=== PATIENT | male | born 1965 | race Caucasian/White ===

== ENCOUNTER 2022-06-21 14:40 | Inpatient (IN) ==
--- NOTE | 2022-06-21 15:22 | Emergency Department Note ---
Impression & Plan SBO (small bowel obstruction), Crohns disease, H/O ileostomy, Hypomagnesemia, Weakness ED Provider Note NAME: KAREN MCADAMS AGE: 57 SEX: M : 1965 ARRIVES VIA: Walk-In INFORMANT: Patient, ED PROVIDER(S): Casper Tavera MD Chief Complaint: Dehydration, outpatient referral HPI: Patient presents with decreased appetite with associated loose schools. The patient has also had some associated vomiting. The patient does have a history of Crohn's was seen by GI today and referred here for further evaluation treatment and hydration as the patient has not been eating or drinking well. Patient states that the decreased appetite has been primarily over the last several months but has been worse maybe within the last week. Patient denies any chest pain shortness of breath. Patient denies any cough other than a smoker's cough but it is nonproductive. The patient does use tobacco but denies any alcohol or drug use. Patient has followed with [facility] for GI but recently was seen by Josue KONG today. Patient denies any current antibiotic use, untreated stream or well water and no known sick contacts or recent travel. The patient denies any blood coming from his ostomy and no blood in the vomit. ROS: See HPI for pertinent positives and negatives. A total of 10 systems were reviewed and otherwise negative. Past medical history: See below Surgical history: See below Social history: See below Physical Exam: GENERAL: NAD, wearing a mask, non-toxic. Glasses. EYE EXAM: Normal conjunctiva. PERRL, no anisocoria and EOM's grossly intact w/o pain. NECK: Supple, no nuchal rigidity, no adenopathy, non-tender. No signs of meningismus. FROM of the neck with good chin to chest and neck extension. No stridor. LUNGS: Scant wheezing. Normal chest wall mechanics. HEART: NSR, no MRG. ABDOMEN: Abdomen soft, right-sided abdominal pain with associated ostomy, normo- active bowel sounds, no masses, no rebound or guarding. BACK: No CVA TTP. SKIN: No rashes and no bruising. UPPER EXTREMITIES: Upper extremities are grossly normal. LOWER EXTREMITIES: Grossly normal, no edema. NEURO EXAM: A&O x3, cranial nerves II-XII grossly intact, normal speech, moves all 4 extremities. Differential diagnoses: Appendicitis, testicular torsion, infections, diverticulitis, UTI, obstruction, mesenteric ischemia, aortic pathology, inflammatory bowel disease, renal colic, PUD, pancreatitis, biliary pathology, hernia, volvulus, constipation, as well as other pathologies. Course: Patient was seen and evaluated the bedside. Full history physical exam was performed. Imaging Studies: See Below Cardiac monitoring: An order was placed for continuous cardiac monitoring. The monitor shows a rate of 92 with sinus rhythm. MDM: Patient was seen due to concern for dehydration nausea vomiting and abdominal pain. Blood work was obtained and the patient was given IV fluids antiemetics and IV Dilaudid. The patient does have an atrial intrathecal pump which she does receive intrathecal Dilaudid. Patient states that the pain medication does not work. Patient's blood work showed a white count of 11 with normal H&H and platelet count. The patient's kidney function was unremarkable. The patient does have hyponatremia. Patient also has associated hypomagnesemia. Urinalysis does show ketones. The patient was ordered magnesium for replacement and did receive IV fluids. COVID-negative. The patient's chest x-ray is negative. The patient's CT abdomen pelvis shows likely partial small bowel obstruction. Patient does not have any active vomiting do not believe he requires an NG at this time. I did speak the on-call hospitalist Dr. Camacho and the patient was admitted to the medicine service. Past Med/Surg History Medical History Atherosclerosis of abdominal aorta Noted incidentally on CT abdomen 04/2019 Chronic abdominal pain 2/2 crohns COPD (chronic obstructive pulmonary disease) No inhaler use. Chest x-ray from 05/19/2019 notes stable hyperexpansion of the lungs consistent with emphysema. Crohns disease DVT (deep venous thrombosis) Years ago in [facility] due to PICC line occlusion, was on Lovenox shots temporarily. 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 Renal cyst Noted on CT 04/2019 Smoker Surgical History (Updated 06/21/22 @ 21:53 by Casper Tavera MD) H/O ileostomy History of colon resection SEVERAL due to crohns History of surgery INTRATHECAL PUMP REFILL Social History Smoking Status: Current every day smoker Tobacco Type: Cigarettes Cigarettes Per Day: 1 pack/day; Second Hand Exposure: Yes; Do You Dip or Chew Tobacco: No; Hx Alcohol Use: No Hx Substance Use: Yes Last Used Substance: Days (ago) Last Used Substance Other :: yesterday Substance Use Type Other:: Medical Marijuana Preferred Language: Estonian Communication Ability: Effective Visual Impairment: No Limitations Hearing Ability: Normal 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 Required: No Beliefs That Will Affect Care: None marital status: Current Living Situation: Significant Other current occupational status: disabled Other Information That Helps Us Care for You: No Feels Safe at Home: Yes Safety Concerns: Feels Safe At This Time Assistive Devices: Cane, Denture - Upper, Denture - Lower and Glasses Allergies Allergies Allergy/AdvReac Type Severity Reaction Status Date / Time lara Allergy Intermediate RASH OR Verified 06/21/22 13:58 TONGUE SWELLS ketorolac Allergy Intermediate shakes, Verified 06/21/22 13:58 nervous latex Allergy Mild IRRITATED Verified 06/21/22 13:58 aspirin Allergy Unknown hx Crohns Verified 06/21/22 13:58 disease tromethamine Allergy Unknown unknown Verified 06/21/22 13:58 Home Meds Home Medications Medication Instructions Recorded Confirmed Medical marijuana 1 dose inhalation UD PRN pain 04/12/21 06/21/22 hydromorphone intrathecal 03/22/22 06/21/22 lorazepam 1 mg tablet (Ativan) 1 mg PO HS 06/21/22 06/21/22 omeprazole 20 mg capsule,delayed 20 mg PO HS 06/21/22 06/21/22 release Previous Rx's Medication Instructions Recorded methocarbamol 500 mg tablet 500 mg PO TID PRN spasms #90 tabs 01/17/22 naloxone 4 mg/actuation nasal 1 spray intranasal Q2M PRN opioid 01/17/22 spray (Narcan) overdose #2 ea Results & Data (ED) Vital Signs Vital Signs - 24 hr 06/21/22 14:53 06/21/22 15:43 06/21/22 16:00 Temperature 37.1 C Temperature Source Temporal Artery Scan Pulse Rate 97 H Pulse Rate from SpO2 Sensor Respiratory Rate 20 Respiratory Effort / Characteristics Non-Labored Spontaneous Respiratory Depth Normal Respiratory Pattern Regular Blood Pressure 88/60 L 109/64 Blood Pressure Mean 69 79 Blood Pressure Position Sitting Pulse Oximetry 97 96 Oxygen Delivery Method Room Air Room Air Sepsis Recent Fever Within 48 Hours No Sepsis New/Unexplained Change in Mental Status No Sepsis Action Taken by Nursing No Action Required 06/21/22 16:00 Temperature Temperature Source Pulse Rate 79 Pulse Rate from SpO2 Sensor 82 Respiratory Rate 10 L Respiratory Effort / Characteristics Respiratory Depth Respiratory Pattern Blood Pressure Blood Pressure Mean Blood Pressure Position Pulse Oximetry 98 Oxygen Delivery Method Sepsis Recent Fever Within 48 Hours Sepsis New/Unexplained Change in Mental Status Sepsis Action Taken by [facility] Medications Current Medication List: was personally reviewed by me Laboratory Data Attestation: I reviewed the patient's lab results. Result diagrams: 06/21/22 15:09 06/21/22 15:09 Lab Results 06/21/22 06/21/22 06/21/22 Range/Units 15:09 15:09 15:09 WBC 11.29 H (4.8-10.8) K/ul RBC 5.27 (4.63-6.08) M/uL Hgb 17.2 (14.0-18.0) g/dl Hct 47.5 (40.1-51.0) % MCV 90.1 (80.0-100.0) fL MCH 32.6 (25.0-34.0) pg MCHC 36.2 H (32.0-36.0) g/dL RDW Std Deviation 42.5 (36.4-46.3) fL RDW Coeff of South 12.9 (11.5-14.5) % Plt Count 326 (130-400) K/uL MPV 9.1 L (9.4-12.4) fL Immature Gran % (Auto) 0.4 % Neut % (Auto) 79.9 % Lymph % (Auto) 14.1 % [place] % (Auto) 5.3 % Eos % (Auto) 0.1 % Baso % (Auto) 0.2 % Neut # (Auto) 9.03 H (1.4-6.5) K/uL Lymph # (Auto) 1.59 (1.2-3.4) K/uL [place] # (Auto) 0.60 (0.24-0.82) K/uL Eos # (Auto) 0.01 (0-0.50) K/uL Baso # (Auto) 0.02 (0-0.2) K/uL Immature Gran # (Auto) 0.04 H (0.00-0.02) K/uL ESR (0-20) mm/hr PT 10.3 (9.0-12.0) Seconds INR 1.0 (0.9-1.1) APTT 25.9 (21.0-31.0) Seconds PTT Ratio 0.9 Sodium 132 L (136-145) mmol/L Potassium 3.6 (3.5-5.1) mmol/L Chloride 90 L (98-107) mmol/L Carbon Dioxide 32 (21-32) mmol/L Anion Gap 10 (3-11) BUN 16 (6-23) mg/dl Creatinine 1.08 (0.6-1.4) mg/dl Est Cr Clr Drug Dosing 59.2 ml/min Est GFR ( Amer) 88.5 ml/min Est GFR (Non-Af Amer) 76.3 ml/min BUN/Creatinine Ratio 14.8 (10-20) Glucose 102 H (70-99(Fasting)) mg/dl Osmolality (280-300) mOsm/kg Calcium 10.9 H (8.5-10.1) mg/dl Magnesium (1.7-2.4) mg/dl Total Bilirubin 1.7 H (0.2-1.0) mg/dl AST 29 (13-39) U/L ALT 31 (7-52) U/L Alkaline Phosphatase 78 (34-104) U/L C-Reactive Protein (0-0.5) mg/dl Total Protein 8.4 H (6.0-8.3) gm/dl Albumin 5.0 (3.4-5.0) gm/dl Globulin 3.4 (2.5-4.0) gm/dl Albumin/Globulin Ratio 1.5 (0.9-2) TSH (0.300-4.500) uIu/ml Urine Color Urine Appearance (Clear) Urine pH (4.5-7.5) Ur Specific [place] (1.000-1.030) Urine Protein (Negative) Urine Glucose (UA) (Negative) Urine Ketones (Negative) Urine Blood (Negative) Urine Nitrite (Negative) Urine Bilirubin (Negative) Urine Urobilinogen (Negative) Ur Leukocyte Esterase (Negative) Urine WBC (Auto) (0-5) /hpf Urine RBC (Auto) (0-4) /hpf U Hyaline Cast (Auto) (0-5) /lpf U Epithel Cells (Auto) (0-5) /lpf Urine Bacteria (Auto) (Negative) Urine Osmolality (500-800) mOsm/kg Ur Random Sodium mmol/L 06/21/22 06/21/22 06/21/22 Range/Units 15:09 15:09 15:09 WBC (4.8-10.8) K/ul RBC (4.63-6.08) M/uL Hgb (14.0-18.0) g/dl Hct (40.1-51.0) % MCV (80.0-100.0) fL MCH (25.0-34.0) pg MCHC (32.0-36.0) g/dL RDW Std Deviation (36.4-46.3) fL RDW Coeff of South (11.5-14.5) % Plt Count (130-400) K/uL MPV (9.4-12.4) fL Immature Gran % (Auto) % Neut % (Auto) % Lymph % (Auto) % [place] % (Auto) % Eos % (Auto) % Baso % (Auto) % Neut # (Auto) (1.4-6.5) K/uL Lymph # (Auto) (1.2-3.4) K/uL [place] # (Auto) (0.24-0.82) K/uL Eos # (Auto) (0-0.50) K/uL Baso # (Auto) (0-0.2) K/uL Immature Gran # (Auto) (0.00-0.02) K/uL ESR 55 H (0-20) mm/hr PT (9.0-12.0) Seconds INR (0.9-1.1) APTT (21.0-31.0) Seconds PTT Ratio Sodium (136-145) mmol/L Potassium (3.5-5.1) mmol/L Chloride (98-107) mmol/L Carbon Dioxide (21-32) mmol/L Anion Gap (3-11) BUN (6-23) mg/dl Creatinine (0.6-1.4) mg/dl Est Cr Clr Drug Dosing ml/min Est GFR ( Amer) ml/min Est GFR (Non-Af Amer) ml/min BUN/Creatinine Ratio (10-20) Glucose (70-99(Fasting)) mg/dl Osmolality (280-300) mOsm/kg Calcium (8.5-10.1) mg/dl Magnesium 1.5 L (1.7-2.4) mg/dl Total Bilirubin (0.2-1.0) mg/dl AST (13-39) U/L ALT (7-52) U/L Alkaline Phosphatase (34-104) U/L C-Reactive Protein (0-0.5) mg/dl Total Protein (6.0-8.3) gm/dl Albumin (3.4-5.0) gm/dl Globulin (2.5-4.0) gm/dl Albumin/Globulin Ratio (0.9-2) TSH 0.580 (0.300-4.500) uIu/ml Urine Color Urine Appearance (Clear) Urine pH (4.5-7.5) Ur Specific [place] (1.000-1.030) Urine Protein (Negative) Urine Glucose (UA) (Negative) Urine Ketones (Negative) Urine Blood (Negative) Urine Nitrite (Negative) Urine Bilirubin (Negative) Urine Urobilinogen (Negative) Ur Leukocyte Esterase (Negative) Urine WBC (Auto) (0-5) /hpf Urine RBC (Auto) (0-4) /hpf U Hyaline Cast (Auto) (0-5) /lpf U Epithel Cells (Auto) (0-5) /lpf Urine Bacteria (Auto) (Negative) Urine Osmolality (500-800) mOsm/kg Ur Random Sodium mmol/L 06/21/22 06/21/22 06/21/22 Range/Units 15:09 15:19 16:44 WBC (4.8-10.8) K/ul RBC (4.63-6.08) M/uL Hgb (14.0-18.0) g/dl Hct (40.1-51.0) % MCV (80.0-100.0) fL MCH (25.0-34.0) pg MCHC (32.0-36.0) g/dL RDW Std Deviation (36.4-46.3) fL RDW Coeff of [place] (11.5-14.5) % Plt Count (130-400) K/uL MPV (9.4-12.4) fL Immature Gran % (Auto) % Neut % (Auto) % Lymph % (Auto) % [place] % (Auto) % Eos % (Auto) % Baso % (Auto) % Neut # (Auto) (1.4-6.5) K/uL Lymph # (Auto) (1.2-3.4) K/uL [place] # (Auto) (0.24-0.82) K/uL Eos # (Auto) (0-0.50) K/uL Baso # (Auto) (0-0.2) K/uL Immature Gran # (Auto) (0.00-0.02) K/uL ESR (0-20) mm/hr PT (9.0-12.0) Seconds INR (0.9-1.1) APTT (21.0-31.0) Seconds PTT Ratio Sodium (136-145) mmol/L Potassium (3.5-5.1) mmol/L Chloride (98-107) mmol/L Carbon Dioxide (21-32) mmol/L Anion Gap (3-11) BUN (6-23) mg/dl Creatinine (0.6-1.4) mg/dl Est Cr Clr Drug Dosing ml/min Est GFR ( Amer) ml/min Est GFR (Non-Af Amer) ml/min BUN/Creatinine Ratio (10-20) Glucose (70-99(Fasting)) mg/dl Osmolality 279 L (280-300) mOsm/kg Calcium (8.5-10.1) mg/dl Magnesium (1.7-2.4) mg/dl Total Bilirubin (0.2-1.0) mg/dl AST (13-39) U/L ALT (7-52) U/L Alkaline Phosphatase (34-104) U/L C-Reactive Protein < 0.50 (0-0.5) mg/dl Total Protein (6.0-8.3) gm/dl Albumin (3.4-5.0) gm/dl Globulin (2.5-4.0) gm/dl Albumin/Globulin Ratio (0.9-2) TSH (0.300-4.500) uIu/ml Urine Color Dark Yellow Urine Appearance Clear (Clear) Urine pH 5.5 (4.5-7.5) Ur Specific [place] 1.020 (1.000-1.030) Urine Protein Trace H (Negative) Urine Glucose (UA) Negative (Negative) Urine Ketones 1+ H (Negative) Urine Blood Trace H (Negative) Urine Nitrite Negative (Negative) Urine Bilirubin 1+ H (Negative) Urine Urobilinogen Negative (Negative) Ur Leukocyte Esterase Negative (Negative) Urine WBC (Auto) 1-5 (0-5) /hpf Urine RBC (Auto) 5-10 H (0-4) /hpf U Hyaline Cast (Auto) 5-10 H (0-5) /lpf U Epithel Cells (Auto) 10-20 H (0-5) /lpf Urine Bacteria (Auto) Negative (Negative) Urine Osmolality (500-800) mOsm/kg Ur Random Sodium mmol/L 06/21/22 06/21/22 Range/Units 16:44 16:44 WBC (4.8-10.8) K/ul RBC (4.63-6.08) M/uL Hgb (14.0-18.0) g/dl Hct (40.1-51.0) % MCV (80.0-100.0) fL MCH (25.0-34.0) pg MCHC (32.0-36.0) g/dL RDW Std Deviation (36.4-46.3) fL RDW Coeff of [place] (11.5-14.5) % Plt Count (130-400) K/uL MPV (9.4-12.4) fL Immature Gran % (Auto) % Neut % (Auto) % Lymph % (Auto) % [place] % (Auto) % Eos % (Auto) % Baso % (Auto) % Neut # (Auto) (1.4-6.5) K/uL Lymph # (Auto) (1.2-3.4) K/uL [place] # (Auto) (0.24-0.82) K/uL Eos # (Auto) (0-0.50) K/uL Baso # (Auto) (0-0.2) K/uL Immature Gran # (Auto) (0.00-0.02) K/uL ESR (0-20) mm/hr PT (9.0-12.0) Seconds INR (0.9-1.1) APTT (21.0-31.0) Seconds PTT Ratio Sodium (136-145) mmol/L Potassium (3.5-5.1) mmol/L Chloride (98-107) mmol/L Carbon Dioxide (21-32) mmol/L Anion Gap (3-11) BUN (6-23) mg/dl Creatinine (0.6-1.4) mg/dl Est Cr Clr Drug Dosing ml/min Est GFR ( Amer) ml/min Est GFR (Non-Af Amer) ml/min BUN/Creatinine Ratio (10-20) Glucose (70-99(Fasting)) mg/dl Osmolality (280-300) mOsm/kg Calcium (8.5-10.1) mg/dl Magnesium (1.7-2.4) mg/dl Total Bilirubin (0.2-1.0) mg/dl AST (13-39) U/L ALT (7-52) U/L Alkaline Phosphatase (34-104) U/L C-Reactive Protein (0-0.5) mg/dl Total Protein (6.0-8.3) gm/dl Albumin (3.4-5.0) gm/dl Globulin (2.5-4.0) gm/dl Albumin/Globulin Ratio (0.9-2) TSH (0.300-4.500) uIu/ml Urine Color Urine Appearance (Clear) Urine pH (4.5-7.5) Ur Specific [place] (1.000-1.030) Urine Protein (Negative) Urine Glucose (UA) (Negative) Urine Ketones (Negative) Urine Blood (Negative) Urine Nitrite (Negative) Urine Bilirubin (Negative) Urine Urobilinogen (Negative) Ur Leukocyte Esterase (Negative) Urine WBC (Auto) (0-5) /hpf Urine RBC (Auto) (0-4) /hpf U Hyaline Cast (Auto) (0-5) /lpf U Epithel Cells (Auto) (0-5) /lpf Urine Bacteria (Auto) (Negative) Urine Osmolality 599 (500-800) mOsm/kg Ur Random Sodium < 10 mmol/L Administered Medications Hydromorphone HCl (Hydromorphone Inj 0.5 Mg/0.5 Ml Syr) 0.5 mg IV Q4H PRN PRN Reason: Moderate/Severe Pain Stop: 07/05/22 18:57 Last Admin: 06/21/22 20:13 Dose: 0.5 mg Documented By: CJC Lactated Ringer's (Lr) 1,000 mls @ 125 mls/hr IV .Q8H JI Stop: 06/22/22 02:47 Last Admin: 06/21/22 19:30 Dose: 125 mls/hr Documented By: AUGUSTINE Magnesium Sulfate/Dextrose (Magnesium Sulfate / D5w) 1 gm in 100 mls @ 50 mls/hr IV Q2H JI Stop: 06/21/22 22:47 Last Admin: 06/21/22 19:50 Dose: 50 mls/hr Documented By: AUGUSTINE Acetaminophen (Ofirmev) 1,000 mg in 100 mls @ 400 mls/hr IV Q8H PRN PRN Reason: Mild Pain or Fever Stop: 06/24/22 18:47 Last Infusion: 06/21/22 19:45 Dose: 0 mls/hr Documented By: Admin: 06/21/22 19:30 Dose: 400 mls/hr Documented By: AUGUSTINE Discontinued Medications Hydromorphone HCl (Hydromorphone Inj 0.5 Mg/0.5 Ml Syr) 0.5 mg IV NOW STA Stop: 06/21/22 15:37 Last Admin: 06/21/22 15:55 Dose: 0.5 mg Documented By: ARVIND Sodium Chloride (Nss 1000ml) 2,000 mls @ 999 mls/hr IV .Q2H1M JI Stop: 06/21/22 17:45 Last Infusion: 06/21/22 19:14 Dose: 0 mls/hr Documented By: Admin: 06/21/22 15:55 Dose: 999 mls/hr Documented By: ARVIND Magnesium Sulfate/Dextrose (Magnesium Sulfate / D5w) 1 gm in 100 mls @ 100 mls/hr IV NOW STA Stop: 06/21/22 18:39 Last Infusion: 06/21/22 19:01 Dose: 0 mls/hr Documented By: Admin: 06/21/22 18:01 Dose: 100 mls/hr Documented By: ARVIND Potassium Chloride (K Maycol / Wtr) 10 meq in 100 mls @ 100 mls/hr IV Q1H JI Stop: 06/21/22 20:47 Last Admin: 06/21/22 21:29 Dose: 100 mls/hr Documented By: AUGUSTINE Ioversol (Optiray 300 500ml) 87 ml IV ONCE ONE Stop: 06/21/22 16:50 Last Admin: 06/21/22 16:54 Dose: 87 ml Documented By: KIM Ondansetron HCl (Ondansetron Inj 2 Mg/Ml 2 Ml Vial) 4 mg IV NOW STA Stop: 06/21/22 15:37 Last Admin: 06/21/22 15:55 Dose: 4 mg Documented By: ARVIND Imaging Data Radiologist's Impression: Chest X-Ray 06/21/22 14:57 XR chest 1V portable CLINICAL HISTORY: illness TECHNIQUE: Single frontal radiograph of the chest was obtained. Comparison: Comparison is made to chest radiograph 11/05/2020 FINDINGS: No lines and tubes are seen. The cardiomediastinal silhouette is normal. The lungs are clear apart from chronic emphysematous changes. No evidence of pleural effusion or pneumothorax. IMPRESSION: No acute abnormalities and in particular no evidence of pneumonia. ACT 112: Negative or not required by law. Electronically signed by: Vivek Wilson M.D. 06/21/2022 3:57 PM Abdomen/Pelvis CT 06/21/22 15:36 CT SCAN OF THE ABDOMEN AND PELVIS WITH IV CONTRAST CLINICAL HISTORY: Right-sided abdominal pain. History of Crohn's disease. COMPARISON STUDY: No priors. TECHNIQUE: Following the IV administration of 87 cc of Optiray 300, CT scan of the abdomen and pelvis is performed from the lung bases to the proximal femora. Images are reviewed in the axial, sagittal, and coronal planes. IV contrast was administered without complication. A dose lowering technique was utilized adhering to the principles of ALARA. The examination is degraded by streak artifact from a pain pump device in the left abdominal wall. CT DOSE: 246.62 mGy.cm FINDINGS: Lung bases: The heart is normal in size and without pericardial effusion. Emphysematous changes noted at the lung bases. There is bibasilar scarring/atelectasis. No airspace consolidation or pleural effusion is identified.. Liver: The contrast-enhanced liver is normal in size, contour, and attenuation. There is no intrahepatic biliary ductal dilatation. The hepatic veins and portal veins are patent. Gallbladder: Surgically absent and clips in the gallbladder fossa. Spleen: Normal in size and attenuation. Pancreas: Unremarkable. Adrenal glands: Unremarkable. Kidneys: The contrast enhanced kidneys are normal in size and without hydronephrosis. The kidneys enhance symmetrically. A 2.2 cm cyst is noted in the right lower pole. Additional subcentimeter cortical hypodensities also likely represent cysts but are too small for definitive characterization Abdominal vasculature: The abdominal aorta is normal in course and caliber noting advanced atherosclerotic calcification. Bowel: There is postoperative change from proctocolectomy and right lower quadra nt ileostomy. The proximal small bowel loops are distended and fluid-filled, measuring up to 3.3 cm in diameter. The distal small bowel loops are decompressed leading to the ostomy. The appearance favors a small bowel obstruction. Exact transition point is not delineated, but is likely located in the pelvis. No focally thick-walled bowel loops are identified. There is no pneumatosis intestinalis or portal venous gas. Peritoneum: There is no intraperitoneal free air or abdominal ascites. Lymphadenopathy: None. Pelvic viscera: The bladder is decompressed and appears circumferentially thick walled. The prostate gland is mildly enlarged and heterogeneous. The seminal vesicles are normal as imaged. Skeletal structures: The skeletal structures are osteopenic. No lytic or blastic lesions are seen. Soft tissues: The patient is cachectic. A pain pump device is present within the left lower quadrant abdominal wall. The catheter enters the central canal in the upper lumbar region. IMPRESSION: 1. There is postoperative change from proctocolectomy and right lower quadrant ileostomy. 2. The proximal small bowel loops are distended and fluid-filled, while the distal small bowel loops are decompressed. The appearance favors at least partial small bowel obstruction. A discrete transition point is not identified, but likely located in the pelvis. 3. No intraperitoneal free air is seen. No focally thick-walled bowel loops identified. 4. Emphysema. 5. The bladder is decompressed and appears circumferentially thick walled. Correlate with clinical findings and urinalysis. 6. Additional findings as above. ACT 112: Negative or not required by law. Electronically signed by: Alexander Larkin M.D. 06/21/2022 5:11 PM Discharge Plan Visit Data Chief Complaint: Dehydration Stated Complaint: DEHHYDRATION, WEAKNESS ED Provider: Casper Tavera Discharge Problem: SBO (small bowel obstruction), Crohns disease, H/O ileostomy, Hypomagnesemia, Weakness Patient Disposition: Admitted As Inpatient Discharge Instructions Interventions: ED Discharge Assessment Last Done: 06/21/22 18:09
[2022-06-21 15:28] LABS: Basophils # (auto) 0.02 K/uL (0-0.2); Basophils % (auto) 0.2 %; Eosinophils # (auto) 0.01 K/uL (0-0.50); Eosinophils % (auto) 0.1 %; Hematocrit (blood only) 47.5 % (40.1-51.0); Hemoglobin 17.2 g/dl (14.0-18.0); Immature Granulocytes # (auto) 0.04 K/uL (0.00-0.02); Immature Granulocytes % (auto) 0.4 %; Lymphocytes # (auto) 1.59 K/uL (1.2-3.4); Lymphocytes % (auto) 14.1 %; Mean Corpuscular Hemoglobin 32.6 pg (25.0-34.0); Mean Corpuscular Hgb Conc 36.2 g/dL (32.0-36.0); Mean Corpuscular Volume 90.1 fL (80.0-100.0); Mean Platelet Volume 9.1 fL (9.4-12.4); Monocytes % (auto) 5.3 %; Neutrophils # (auto) 9.03 K/uL (1.4-6.5); Neutrophils % (auto) 79.9 %; Platelet Count 326 K/uL (130-400); RDW Coefficient of Variation 12.9 % (11.5-14.5); RDW Standard Deviation 42.5 fL (36.4-46.3); Red Blood Count 5.27 M/uL (4.63-6.08); White Blood Count 11.29 K/ul (4.8-10.8)
[2022-06-21] MEDS ORDERED: HYDROmorphone INJ 0.5 MG/0.5 ML SYR IV STA (15:36)
[2022-06-21] MEDS ORDERED: ONDANSETRON INJ 2 MG/ML 2 ML VIAL IV STA (15:36)
[2022-06-21 15:42] LABS: Partial Thromboplastin Ratio 0.9; Partial Thromboplastin Time 25.9 Seconds (21.0-31.0); Prothrombin Time 10.3 Seconds (9.0-12.0)
[2022-06-21] MEDS ORDERED: SODIUM CHLORIDE 0.9% 1000ML 2,000 ML IV SCH (15:45)
[2022-06-21 15:56] LABS: Albumin Globulin Ratio 1.5 (0.9-2); BUN Creatinine Ratio 14.8 (10-20); Bilirubin,Total 1.7 mg/dl (0.2-1.0); Calcium 10.9 mg/dl (8.5-10.1); Creatinine Clr Calc Pharmacy 59.2 ml/min; Est GFR (African American) 88.5 ml/min; Est GFR (Non-African American) 76.3 ml/min; Globulin 3.4 gm/dl (2.5-4.0); Potassium 3.6 mmol/L (3.5-5.1); Total Protein 8.4 gm/dl (6.0-8.3)
--- NOTE | 2022-06-21 15:58 | XRay Report ---
XR chest 1V portable CLINICAL HISTORY: illness TECHNIQUE: Single frontal radiograph of the chest was obtained. Comparison: Comparison is made to chest radiograph 11/05/2020 FINDINGS: No lines and tubes are seen. The cardiomediastinal silhouette is normal. The lungs are clear apart fr om chronic emphysematous changes. No evidence of pleural effusion or pneumothorax. IMPRESSION: No acute abnormalities and in particular no evidence of pneumonia. ACT 112: Negative or not required by law. Electronically signed by: Vivek Wilson M.D. 06/21/2022 3:57 PM
[2022-06-21] MEDS ORDERED: OPTIRAY 300 500mL IV ONE (16:49)
[2022-06-21 17:05] LABS: Appearance Urine Clear (Clear); Bacteria Urine Automated Negative (Negative); Blood Urine Trace (Negative); Color Urine Dark Yellow; Glucose Urine UA Negative (Negative); Ketones Urine 1+ (Negative); Leukocyte Esterase Urine Negative (Negative); Nitrite Urine Negative (Negative); Protein Urine Trace (Negative); Urobilinogen Urine Negative (Negative); pH Urine 5.5 (4.5-7.5)
[2022-06-21 17:08] LABS: Bilirubin Urine 1+ (Negative)
--- NOTE | 2022-06-21 17:12 | CT Scan Report ---
CT SCAN OF THE ABDOMEN AND PELVIS WITH IV CONTRAST CLINICAL HISTORY: Right-sided abdominal pain. History of Crohn's disease. COMPARISON STUDY: No priors. TECHNIQUE: Following the IV administration of 87 cc of Optiray 300, CT scan of the abdomen and pelvi s is performed from the lung bases to the proximal femora. Images are reviewed in the axial, sagittal , and coronal planes. IV contrast was administered without complication. A dose lowering technique wa s utilized adhering to the principles of ALARA. The examination is degraded by streak artifact from a pain pump device in the left abdominal wall. CT DOSE: 246.62 mGy.cm FINDINGS: Lung bases: The heart is normal in size and without pericardial effusion. Emphysematous changes noted at the lung bases. There is bibasilar scarring/atelectasis. No airspace consolidation or pleural eff usion is identified.. Liver: The contrast-enhanced liver is normal in size, contour, and attenuation. There is no intrahepa tic biliary ductal dilatation. The hepatic veins and portal veins are patent. Gallbladder: Surgically absent and clips in the gallbladder fossa. Spleen: Normal in size and attenuation. Pancreas: Unremarkable. Adrenal glands: Unremarkable. Kidneys: The contrast enhanced kidneys are normal in size and without hydronephrosis. The kidneys enh ance symmetrically. A 2.2 cm cyst is noted in the right lower pole. Additional subcentimeter cortical hypodensities also likely represent cysts but are too small for definitive characterization Abdominal vasculature: The abdominal aorta is normal in course and caliber noting advanced atheroscle rotic calcification. Bowel: There is postoperative change from proctocolectomy and right lower quadrant ileostomy. The pro ximal small bowel loops are distended and fluid-filled, measuring up to 3.3 cm in diameter. The dista l small bowel loops are decompressed leading to the ostomy. The appearance favors a small bowel obstr uction. Exact transition point is not delineated, but is likely located in the pelvis. No focally thi ck-walled bowel loops are identified. There is no pneumatosis intestinalis or portal venous gas. Peritoneum: There is no intraperitoneal free air or abdominal ascites. Lymphadenopathy: None. Pelvic viscera: The bladder is decompressed and appears circumferentially thick walled. The prostate gland is mildly enlarged and heterogeneous. The seminal vesicles are normal as imaged. Skeletal structures: The skeletal structures are osteopenic. No lytic or blastic lesions are seen. Soft tissues: The patient is cachectic. A pain pump device is present within the left lower quadrant abdominal wall. The catheter enters the central canal in the upper lumbar region. IMPRESSION: 1. There is postoperative change from proctocolectomy and right lower quadrant ileostomy. 2. The proximal small bowel loops are distended and fluid-filled, while the distal small bowel loops are decompressed. The appearance favors at least partial small bowel obstruction. A discrete transiti on point is not identified, but likely located in the pelvis. 3. No intraperitoneal free air is seen. No focally thick-walled bowel loops identified. 4. Emphysema. 5. The bladder is decompressed and appears circumferentially thick walled. Correlate with clinical fi ndings and urinalysis. 6. Additional findings as above. ACT 112: Negative or not required by law. Electronically signed by: Alexander Larkin M.D. 06/21/2022 5:11 PM
[2022-06-21] MEDS ORDERED: MAGNESIUM SULFATE / D5W 1 GM/100 ML BAG IV STA (17:40)
--- NOTE | 2022-06-21 17:44 | History & Physical Report ---
Date of Service June 21, 2022 Assessment & Plan (1) Weakness: Plan: - Ongoing abdominal pain with acute worsening this week with minimal p.o. intake, increased ostomy output. No recent antibiotic use, fevers, or well/stream water ingestion. - CT A/P was read as partial SBO, however patient's reported increased ostomy output does not fit the picture of a bowel obstruction. -Differential diagnosis currently includes gastroenteritis versus flareup of Crohn's disease - Stool bio fire panel, ESR, CRP pending. - N.p.o. with LR's at 125 cc/hour - Will consult GI for further management, as well as consideration for feeding tube placement. - Replete electrolytes as needed, currently has orders for 2 g of IV magnesium in addition to the 1 g received in ED, follows 2 K riders for lownormal potassium. - For acute worsening of chronic abdominal pain--patient has intrathecal pump that gives Dilaudid and bupivacaine. Will order additional IV Tylenol for mild pain, as well as additional 0.5 mg Dilaudid every 6 4-hour as needed for moderate to severe pain. Would anticipate given his chronic use of Dilaudid that he has a fairly high tolerance. (2) SBO (small bowel obstruction): Plan: - Ongoing abdominal pain with acute worsening this week with minimal p.o. intake, increased ostomy output. - CT A/P shows proximal small bowel loops distended and fluid-filled with distal small bowel loops decompressed favoring at least partial SBO with no discrete transition point identified. - Patient's increased ostomy output does not correlate with SBO. - Regardless, management will be similar, n.p.o. with IVF, replace electrolytes, pain management as above. - Will hold off on general surgery consult for now, however if patient's presentation worsens or if repeat imaging reveals progression of an SBO, would consult them for further assistance. (3) Hypomagnesemia: Plan: - 1.5, suspect is in the setting of poor p.o. intake and increased ostomy output - Received 1 g IV mag in ED, will continue with 2 additional grams IV tonight, as well as potassium repletion. (4) Hyponatremia: Plan: - Sodium is 132, suspect this is in the setting of poor p.o. intake and increased ostomy output. - We will obtain serum and urine osm + urine Na. (5) Crohns disease: Plan: - Notes in 1998, s/p RLQ ileostomy for 7-8 years. - Ostomy intact without evidence of infection at site. Putting out large amou nts of brown liquid stool. - GI consult as above. (6) Chronic abdominal pain: Plan: - 2/2 Crohn's disease. - Patient follows with pain management regularly, has intrathecal pump in place with PTM settings 1/hour max amount of use 6 times/day, with simple continuous dose of Dilaudid 3.249 mg/day and bupivacaine 1.8414 mg/day. - Next pump refill scheduled for 07/26/2022. - Patient was previously seen by A[facility] in [facility], however recently switched care to [facility]. First appointment was set to be today, however was referred to our ED before seeing provider. - Due to ongoing issues with nutrition and maintaining healthy weight, he had previously spoken to providers about feeding tube and was said to discuss this at today's appointment. We will consult GI while he is hospitalized, as well as nutrition/dietitian for further assistance with this. (7) Superior mesenteric artery syndrome: (8) Presence of intrathecal pump: (9) Smoker: Plan: - Smokes 1 pack/day. -Offer nicotine patch while hospitalized. Plan - Admit to PCU. - SCDs for VTE PPx. - Full code. History of Present Illness Chief Complaint: weakness, decreased appetite, nasuea x 1 week Primary Care Provider: Vicente Valenzuela Tigre Cline is a 57-year-old male with past medical history significant for intractable abdominal pain secondary to Crohn's disease with intrathecal pump present, s/p ileostomy, SMA syndrome, and COPD with current tobacco use who presents today with loose stools and decreased appetite. He was at a GI appointment today and in triage reported extreme weakness, nausea, and very minimal intake over the past week and therefore was referred here for further evaluation. Admittedly, patient has had poor p.o. intake for months and in fact was seeing GI today via referral from pain management to consider a feeding tube. Over the past week, it has been much worse, stating most days he only gets a few bites of food down before feeling immediately fall and becoming nauseous. There are days when he does not eat anything at all. He has not vomited, but notices any food he does not just seems to go right through him and his ostomy has been putting out large amounts of nonbloody liquid brown stool. He feels that he has no energy and his abdominal pain is worse than it typically is. He did not notice any fever or chills, body aches, chest pain, palpitations, dyspnea, vomiting, hematochezia, melena, or constipation. Upon presentation, BP was initially low at 88/60, and HR 97, however CPAP. BP now improved to 109/64, HR 79. He is afebrile and SPO2 >95% on room air. Labs significant for leukocytosis WBC 11.29, sodium 132, serum bicarb 90, calcium 10.9, magnesium 1.5, T bili 1.7. Renal function is about baseline. UA with hyaline casts, ketones, and protein trace blood and bilirubin. CT A/P shows proximal small polyps that are distended and fluid-filled all distal small loops are decompressed which favors at least partial SBO. There is not a discrete transition point. There is no intraperitoneal free air or focally thick-walled bowel loops. Also noted are postoperative changes from proctocolectomy ileostomy decompressed bladder with wall thickening. Allergies Allergy/AdvReac Type Severity Reaction Status Date / Time lara Allergy Intermediate RASH OR Verified 06/21/22 13:58 TONGUE SWELLS ketorolac Allergy Intermediate shakes, Verified 06/21/22 13:58 nervous latex Allergy Mild IRRITATED Verified 06/21/22 13:58 aspirin Allergy Unknown hx Crohns Verified 06/21/22 13:58 disease tromethamine Allergy Unknown unknown Verified 06/21/22 13:58 Home Medications Medication Instructions Recorded Confirmed Type Medical marijuana 1 dose inhalation UD PRN pain 04/12/21 06/21/22 History methocarbamol 500 mg tablet 500 mg PO TID PRN spasms #90 tabs 01/17/22 06/21/22 Rx naloxone 4 mg/actuation nasal 1 spray intranasal Q2M PRN opioid 01/17/22 Rx spray (Narcan) overdose #2 ea hydromorphone intrathecal 03/22/22 06/21/22 History lorazepam 1 mg tablet (Ativan) 1 mg PO HS 06/21/22 06/21/22 History omeprazole 20 mg capsule,delayed 20 mg PO HS 06/21/22 06/21/22 History release Past Med/Surg History Medical History Atherosclerosis of abdominal aorta Noted incidentally on CT abdomen 04/2019 Chronic abdominal pain 2/2 crohns COPD (chronic obstructive pulmonary disease) No inhaler use. Chest x-ray from 05/19/2019 notes stable hyperexpansion of the lungs consistent with emphysema. Crohns disease DVT (deep venous thrombosis) Years ago in E due to PICC line occlusion, was on Lovenox shots temporarily. 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 Renal cyst Noted on CT 04/2019 Smoker Surgical History H/O ileostomy History of colon resection SEVERAL due to crohns History of surgery INTRATHECAL PUMP REFILL Family History Other No pertinent family history Social History Smoking Status: Current every day smoker Tobacco Type: Cigarettes Cigarettes Per Day: 1 pack/day; Second Hand Exposure: Yes; Do You Dip or Chew Tobacco: No; Hx Alcohol Use: No Hx Substance Use: Yes Last Used Substance: Days (ago) Last Used Substance Other:: yesterday Substance Use Type Other:: Medical Marijuana Preferred Language: Upper Sorbian Communication Ability: Effective Visual Impairment: No Limitations Hearing Ability: Normal 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 Beliefs That Will Affect Care: None marital status: Current Living Situation: Significant Other current occupational status: disabled Other Information That Helps Us Care for You: No Feels Safe at Home: Yes Safety Concerns: Feels Safe At This Time Assistive Devices: Cane, Denture - Upper, Denture - Lower and Glasses Review of Systems Review of Systems: Constitutional: Weakness, fatigue, anorexia; no fever/chills, myalgias, night sweats Eyes: No diplopia, no worsening or blurred vision ENT: normal hearing, no trouble swallowing Respiratory: No cough, sputum, dyspnea at rest or on exertion Cardiovascular: No chest pain, tightness or palpitations Abdomen: Diffuse abdominal pain with nausea and loose nonbloody stools; no vomiting constipation : Denies dysuria, hematuria, increased urgency/frequency, urinary retention Musculoskeletal: No joint pain, calf pain, swelling Neurologic: No weakness, numbness/tingling, or balance problems Psychiatric: No anxiety or depression Skin: No rash or itch Physical Exam Physical Exam: General: awake, alert, appears to be moderately uncomfortable however no acute distress Head: Normocephalic, atraumatic ENT: PERRL, EOMI, no pharyngeal exudate, mucous membranes moist Chest: Clear to auscultation, on room air, no adventitious breath sounds Cardiac: Regular rate and rhythm, no murmur, no JVD, normal peripheral pulses, good capillary refill Abdominal: TTP in epigastrium/right abdomen no rebound or guarding; NABS x 4 quadrants, soft, ostomy intact without evidence of surrounding erythema or edema Extremities: Normal inspection, no peripheral edema or erythema, calfs nontender to palpation Psych: Normal mood and affect Neuro: AAO x 3, strength intact bilaterally and rated 5/5, no motor deficits, speech is clear, no peripheral sensory deficits Skin: no rash or erythema Results & Data Results & Data ([facility]) Vital Signs (Past 12 Hours) Vital Signs Temp Pulse Resp BP Pulse Ox O2 Del Method 06/21/22 16:00 79 10 L 98 06/21/22 16:00 109/64 06/21/22 15:43 96 Room Air 06/21/22 14:53 37.1 C 97 H 20 88/60 L 97 Room Air Laboratory Results Abnormal lab results 06/21/22 06/21/22 06/21/22 Range/Units 15:09 15:09 15:09 WBC 11.29 H (4.8-10.8) K/ul MCHC 36.2 H (32.0-36.0) g/dL MPV 9.1 L (9.4-12.4) fL Neut # (Auto) 9.03 H (1.4-6.5) K/uL Immature Gran # (Auto) 0.04 H (0.00-0.02) K/uL Sodium 132 L (136-145) mmol/L Chloride 90 L (98-107) mmol/L Glucose 102 H (70-99(Fasting)) mg/dl Calcium 10.9 H (8.5-10.1) mg/dl Magnesium 1.5 L (1.7-2.4) mg/dl Total Bilirubin 1.7 H (0.2-1.0) mg/dl Total Protein 8.4 H (6.0-8.3) gm/dl Urine Protein (Negative) Urine Ketones (Negative) Urine Blood (Negative) Urine Bilirubin (Negative) Urine RBC (Auto) (0-4) /hpf U Hyaline Cast (Auto) (0-5) /lpf U Epithel Cells (Auto) (0-5) /lpf 06/21/22 Range/Units 16:44 WBC (4.8-10.8) K/ul MCHC (32.0-36.0) g/dL MPV (9.4-12.4) fL Neut # (Auto) (1.4-6.5) K/uL Immature Gran # (Auto) (0.00-0.02) K/uL Sodium (136-145) mmol/L Chloride (98-107) mmol/L Glucose (70-99(Fasting)) mg/dl Calcium (8.5-10.1) mg/dl Magnesium (1.7-2.4) mg/dl Total Bilirubin (0.2-1.0) mg/dl Total Protein (6.0-8.3) gm/dl Urine Protein Trace H (Negative) Urine Ketones 1+ H (Negative) Urine Blood Trace H (Negative) Urine Bilirubin 1+ H (Negative) Urine RBC (Auto) 5-10 H (0-4) /hpf U Hyaline Cast (Auto) 5-10 H (0-5) /lpf U Epithel Cells (Auto) 10-20 H (0-5) /lpf Diagnostic Findings Chest X-Ray 06/21/22 14:57 XR chest 1V portable CLINICAL HISTORY: illness TECHNIQUE: Single frontal radiograph of the chest was obtained. Comparison: Comparison is made to chest radiograph 11/05/2020 FINDINGS: No lines and tubes are seen. The cardiomediastinal silhouette is normal. The lungs are clear apart from chronic emphysematous changes. No evidence of pleural effusion or pneumothorax. IMPRESSION: No acute abnormalities and in particular no evidence of pneumonia. ACT 112: Negative or not required by law. Electronically signed by: Vivek Wilson M.D. 06/21/2022 3:57 PM Abdomen/Pelvis CT 06/21/22 15:36 CT SCAN OF THE ABDOMEN AND PELVIS WITH IV CONTRAST CLINICAL HISTORY: Right-sided abdominal pain. History of Crohn's disease. COMPARISON STUDY: No priors. TECHNIQUE: Following the IV administration of 87 cc of Optiray 300, CT scan of the abdomen and pelvis is performed from the lung bases to the proximal femora. Images are reviewed in the axial, sagittal, and coronal planes. IV contrast was administered without complication. A dose lowering technique was utilized adhering to the principles of ALARA. The examination is degraded by streak artifact from a pain pump device in the left abdominal wall. CT DOSE: 246.62 mGy.cm FINDINGS: Lung bases: The heart is normal in size and without pericardial effusion. Emphysematous changes noted at the lung bases. There is bibasilar scarring/atelectasis. No airspace consolidation or pleural effusion is identified.. Liver: The contrast-enhanced liver is normal in size, contour, and attenuation. There is no intrahepatic biliary ductal dilatation. The hepatic veins and portal veins are patent. Gallbladder: Surgically absent and clips in the gallbladder fossa. Spleen: Normal in size and attenuation. Pancreas: Unremarkable. Adrenal glands: Unremarkable. Kidneys: The contrast enhanced kidneys are normal in size and without hydronephrosis. The kidneys enhance symmetrically. A 2.2 cm cyst is noted in the right lower pole. Additional subcentimeter cortical hypodensities also likely represent cysts but are too small for definitive characterization Abdominal vasculature: The abdominal aorta is normal in course and caliber noting advanced atherosclerotic calcification. Bowel: There is postoperative change from proctocolectomy and right lower quadrant ileostomy. The proximal small bowel loops are distended and fluid- filled, measuring up to 3.3 cm in diameter. The distal small bowel loops are decompressed leading to the ostomy. The appearance favors a small bowel obstruction. Exact transition point is not delineated, but is likely located in the pelvis. No focally thick-walled bowel loops are identified. There is no pneumatosis intestinalis or portal venous gas. Peritoneum: There is no intraperitoneal free air or abdominal ascites. Lymphadenopathy: None. Pelvic viscera: The bladder is decompressed and appears circumferentially thick walled. The prostate gland is mildly enlarged and heterogeneous. The seminal vesicles are normal as imaged. Skeletal structures: The skeletal structures are osteopenic. No lytic or blastic lesions are seen. Soft tissues: The patient is cachectic. A pain pump device is present within the left lower quadrant abdominal wall. The catheter enters the central canal in the upper lumbar region. IMPRESSION: 1. There is postoperative change from proctocolectomy and right lower quadrant ileostomy. 2. The proximal small bowel loops are distended and fluid-filled, while the distal small bowel loops are decompressed. The appearance favors at least partial small bowel obstruction. A discrete transition point is not identified, but likely located in the pelvis. 3. No intraperitoneal free air is seen. No focally thick-walled bowel loops identified. 4. Emphysema. 5. The bladder is decompressed and appears circumferentially thick walled. Correlate with clinical findings and urinalysis. 6. Additional findings as above. ACT 112: Negative or not required by law. Electronically signed by: Alexander Larkin M.D. 06/21/2022 5:11 PM Code Status & VTE Plan Code Status Poor data quality, interpretation may be adversely affected Sinus rhythm with marked sinus arrhythmia Right axis deviation Abnormal ECG When compared with ECG of 05-NOV-2020 21:26, Premature atrial complexes are no longer Present Incomplete right bundle branch block is no longer Present. Supervising Physician Co-Signing Physician Notes Attending Attestation & Admit Note: Pt seen/examined, chart reviewed, care plan d/w CHERYL Valenzuela. I agree w/ the obrien components of her documentation. 57yo male with Crohn's disease, ileostomy status, h/o SMA syndrome, chronic pain syndrome with intrathecal pain pump. Presents with copious ileostomy output - empties bag sometimes up to 20x's each day. On a "good day" he empties the bag ~10x's/day. No fevers. Very poor PO intake. PMH/PSH/allergies/meds/sochx/famhx - reviewed BPs low or low-normal, otherwise stable vitals gen - thin, malnourished appearing, NAD mouth - thrush plaques on tongue, buccal mucosa; MM dry neck - no JVD heart - RRR, s1 s2 lungs - CTA b/l abd - mildly tender epigastric region; ileostomy with bag in place - bag full of liquid stool; BS+; no peritoneal signs ext - no edema, pulses 2+ b/l labs reviewed CT abd/pelvis reviewed A/P: 1. high-output ileostomy; clinical picture NOT c/w pSBO despite CT findings 2. r/o infectious process with stool BioFire 3. replace low K/mag/Na 4. hypercalcemia - likely 2nd to dehydration state; should correct w/ IVF 5. severe protein calorie malnutrition ?active Crohn's causing #1? check ESR/CRP GI consultation Hiren Camacho MD PG Care Time/CCT Total # of Minutes Spent Total Time Spent with Patient: Total time spent is greater than 50% in coordination of care (as documented) at patient's floor/unit and/or counseling patient: Coding Level of Care Code 87290 Initial Inpt Care Lvl 3 Diagnoses Weakness R53.1 SBO (small bowel obstruction) K56.609 Hypomagnesemia E83.42 Hyponatremia E87.1 Crohns disease K50.90 Chronic abdominal pain R10.9; G89.29 Superior mesenteric artery syndrome K55.1 Presence of intrathecal pump Z96.89 Smoker F17.200
[2022-06-21] MEDS ORDERED: LACTATED RINGER'S 1,000 ML IV SCH (18:48)
[2022-06-21] MEDS ORDERED: NALOXONE NASAL SPRAY 4 MG ER HOMEPACK PRN (18:48)
[2022-06-21] MEDS ORDERED: HYDROMORPHONE intrathecal SCH (18:48)
[2022-06-21] MEDS ORDERED: ONDANSETRON INJ 2 MG/ML 2 ML VIAL IV PRN (18:48)
[2022-06-21] MEDS ORDERED: HYDROmorphone INJ 0.5 MG/0.5 ML SYR IV PRN (18:58)
[2022-06-21] MEDS ORDERED: BUPIVACAINE IT SCH (19:15)
[2022-06-21] MEDS ORDERED: [UNRECOGNIZED DRUG - OTHER] IT SCH (19:15)
[2022-06-21] MEDS ORDERED: HYDROMORPHONE IT SCH (19:15)
[2022-06-21] MEDS ORDERED: NALOXONE HCL 0.4 MG/1 ML VIAL/CARP IV PRN (19:29)
[2022-06-21] MEDS: ACETAMINOPHEN 1,000 MG/100 ML VIAL IV PRN (19:30)
[2022-06-21] MEDS: MAGNESIUM SULFATE / D5W 1 GM/100 ML BAG IV SCH ×2 (19:50→22:00)
[2022-06-21] MEDS: POTASSIUM CHLORIDE / WTR 10 MEQ/100 ML PLCT IV SCH ×2 (21:29→22:41)
[2022-06-21] MEDS ORDERED: LORazepam 1 MG TAB PO STA (22:13)
[2022-06-21] MEDS: HYDROmorphone INJ 0.5 MG/0.5 ML SYR IV PRN (22:50)
[2022-06-22 00:13] LABS: Adenovirus F 40/41 PCR Not Detected (NotDetected); Astrovirus PCR Not Detected (NotDetected); Campylobacter PCR Not Detected (NotDetected); Clostridium diff Toxin A/B PCR Not Detected (NotDetected); Cryptosporidium PCR Not Detected (NotDetected); Cyclospora cayetanensis PCR Not Detected (NotDetected); Entamoeba histolytica PCR Not Detected (NotDetected); Enteroaggregative E.coli(EAEC) Not Detected (NotDetected); Enteropathogenic E.coli (EPEC) Not Detected (NotDetected); Enterotoxigenic E.coli (ETEC) Not Detected (NotDetected); Giardia lamblia PCR Not Detected (NotDetected); Norovirus GI/GII PCR Not Detected (NotDetected); Plesiomonas shigelloides PCR Not Detected (NotDetected); Rotavirus A PCR Not Detected (NotDetected); Salmonella PCR Not Detected (NotDetected); Sapovirus PCR Not Detected (NotDetected); Shiga-like Toxin E.coli (STEC) Not Detected (NotDetected); Shigella/Enteroinvasive E.coli Not Detected (NotDetected); Vibrio cholerae PCR Not Detected (NotDetected); Vibrio species PCR Not Detected (NotDetected); Yersinia enterocolitica PCR Not Detected (NotDetected)
[2022-06-22] MEDS: LORazepam 1 MG TAB PO SCH ×2 (00:21→22:15)
[2022-06-22] MEDS: HYDROmorphone INJ 0.5 MG/0.5 ML SYR IV PRN ×6 (02:25→22:15)
--- NOTE | 2022-06-22 06:08 | Electrocardiogram Report ---
Test Reason : Blood Pressure : / mmHG Vent. Rate : 083 BPM Atrial Rate : 083 BPM P-R Int : 124 ms QRS Dur : 086 ms QT Int : 348 ms P-R-T Axes : 064 115 069 degrees QTc Int : 408 ms Poor data quality, interpretation may be adversely affected Sinus rhythm with marked sinus arrhythmia Premature atrial complexes Right axis deviation Abnormal ECG When compared with ECG of 05-NOV-2020 21:26, No significant change Confirmed by Jensen Christie ([id number]) on 06/22/2022 6:08:24 AM Referred By: REFERRED SELF Confirmed By:Jensen Christie
[2022-06-22 07:14] LABS: Basophils # (auto) 0.04 K/uL (0-0.2); Basophils % (auto) 0.5 %; Eosinophils # (auto) 0.09 K/uL (0-0.50); Eosinophils % (auto) 1.1 %; Hematocrit (blood only) 37.6 % (40.1-51.0); Hemoglobin 13.4 g/dl (14.0-18.0); Immature Granulocytes # (auto) 0.03 K/uL (0.00-0.02); Immature Granulocytes % (auto) 0.4 %; Lymphocytes # (auto) 1.52 K/uL (1.2-3.4); Lymphocytes % (auto) 19.4 %; Mean Corpuscular Hemoglobin 32.5 pg (25.0-34.0); Mean Corpuscular Hgb Conc 35.6 g/dL (32.0-36.0); Mean Corpuscular Volume 91.3 fL (80.0-100.0); Mean Platelet Volume 9.2 fL (9.4-12.4); Monocytes # (auto) 0.64 K/uL (0.24-0.82); Monocytes % (auto) 8.2 %; Neutrophils # (auto) 5.53 K/uL (1.4-6.5); Neutrophils % (auto) 70.4 %; Platelet Count 239 K/uL (130-400); RDW Coefficient of Variation 13.1 % (11.5-14.5); Red Blood Count 4.12 M/uL (4.63-6.08); White Blood Count 7.85 K/ul (4.8-10.8)
[2022-06-22 07:47] LABS: BUN Creatinine Ratio 13.1 (10-20); Calcium 8.5 mg/dl (8.5-10.1); Creatinine Clr Calc Pharmacy 72.4 ml/min; Est GFR (African American) 113.4 ml/min; Est GFR (Non-African American) 97.9 ml/min; Magnesium 1.9 mg/dl (1.7-2.4); Potassium 3.7 mmol/L (3.5-5.1)
--- NOTE | 2022-06-22 09:08 | Gastrointestinal Consultation ---
Date of Consultation June 22, 2022 Assessment & Plan (1) Partial small bowel obstruction: (2) Crohn's disease of small and large intestines: (3) Superior mesenteric artery syndrome: (4) H/O ileostomy: (5) Presence of intrathecal pump: (6) Severe protein-calorie malnutrition: Plan Patient with incredibly extensive surgical history as noted above. ESR is mildly elevated and CRP is normal. It is unclear if this is Crohn's Disease vs post- surgical issues, however can add IV steroids in the interim while the ultimate goal would be to transfer this patient to [facility] as he has escalated to the point where he is unable to tolerate food and water at home and we do not have the re sources for outpatient management for the acuity of his situation. Regarding concerns about feeding tube placement for significant weight loss and malnutrition due to inability to take po, this was evaluated in 2019 and it was determined that it could not be done endoscopically due to extensive surgical scarring. At the time, the options presented at a tertiary center were IR placement, surgical placement, or TPN. Can check a stool calprotectin to determine if IBD is active, but unfortunately this study can take 10-14 days to return and will not help us at the present time. I discussed my concerns with the patient and he is in agreement noting he had actually called [facility] first. Supervising Physician Co-Signing Physician Notes Agree with JOSE Acevedo as above Abd: Soft, NT, Ileostomy with brown liquid stool Continue current therapy and supportive care Recommend transfer to Tertiary care Center History of Present Illness Reason for Consultation: Crohn's Disease, Partial SBO, concern for need for feeding tube Attending Physician: Hiren Camacho History of Present Illness Mr. Cline is a 57 yo male with extensive history of stricturing ileocolonic Crohn's Disease with 12+surgical interventions. Per review of records from his IBD and colorectal surgery teams at [facility], the patient was diagnosed in 1998 with Crohn's Disease after presenting with n/v, weight loss, & SBO. He was initiated on steroids & 5ASAs at that time. Due to progression of symptoms, he was eventually started on Imuran and by 2000 was on Remicade. Despite these interventions, the stricturing disease of the ileum did not improve and symptoms persisted. He had a resection in 2002. He unfortunately developed worsening stricturing disease post-operatively leading to an eventual ileocolonic resection in 2005 with diverting ileostomy after multiple surgeries including ex lap with extensive BEAU, ileostomy takedown with ileotransverse anastomosis in arch 2007. He was switched from Remicade to Humira in 2008 but his symptoms persisted. He was started on an intrathecal Dilaudid pump at that time. He was off of his IBD therapy from [id number] due to financial concerns. He presented in 2011 with intermittent fevers and was found to have rectosigmoid ulceration and IC anastomotic stricture at that time. He then had a subtotal proctocolectomy with closure of an anorectal stump, end ileostomy, and BEAU in 2011. Post surgical complications included a ag-rectal cuff abscess requiring operative drainage by colorectal surgery 3 times in 2011. In May of 2012, he finally underwent a completion proctectomy and debridement of stump associated abscess. At that time in 2011, he began seeing IBD specialist Dr. Fer Hurtado. In 2012, he had a restaging EGD and ileoscopy without evidence of active IBD. He was not placed on IBD therapy due to this. He continued to have numerous admissions for abdominal pain an partial small bowel obstructions felt to be due to extensive adhesions. From [id number] he had many SBFTs, CTEs, and CTs that did not show disease of the small bowel. Due to persistent symptoms, an exploratory laparoscopy was planned, however the patient admitted to smoking cigarettes at that time and it was deferred for this reason. In 2016, he underwent an EGD that was unremarkable. Ileoscopy was unremarkable as well. He did better for some time, but by 2018, he had begun to have obstructive symptoms often and began unintentionally losing weight (30+ lbs in 2 months). He did not seek medical attention at that time because his obstructive symptoms resolved when he backed off diet. In 2018, he presented to [facility] because he could not resolve the pain with conservative measures. At that time, he reportedly had a CT scan that was concerning for SMA syndrome with duodenal c loop dilatation by narrowing at the 3rd portion of the duodenum as a result of narrowing of the aortomesenteric distance at the SMA branch. He had no CT findings of active IBD and stool calprotectin was negative at that time. Despite this, due to his persistent symptoms, he was tried on Budesonide and ultimately steroids again without improvement of his GI symptoms and ended up in tertiary care on Cyclosporine. He re-established care with the IBD office at [facility] in 2019 after this admission, but I am unclear of what further has been done since that time in 2019 as I do not have records of this. He notes that he called them recently and says he was told to be evaluated locally to decide what was going on. He has intermittently sought care at [facility] for several years, though he has been non-compliant and not much was able to be offered at a local level. He is not currently on Crohn's therapy. Of note, he continues to smoke. He presented to outpatient clinic yesterday, but acknowledged in triage that he was dizzy, weak, and unable to take anything by mouth. He was redirected to the ER. In the ED, he underwent a CT scan that questioned a partial small bowel obstruction. Clinically, he has had 30+ lbs weight loss over the past several months and isn't eating at home. He is having to empty his ostomy 20+ times daily. His H/H is 13.4/37.6. Stool studies are negative for enteric pathogens. K 3.7. BP 94/58. Mg 1.5 on admission. WBC 11.29 on admission. T Bili 1.7. CRP is normal and ESR is mildly elevated at 55. GI has been consulted for consideration of feeding tube due to his inability to tolerate po, unfortunately it is documented in historical records that a PEG was considered in 2019 due to the same issue, but it was determined that it could not be endoscopically placed due to extensive surgical scarring. The plan at that time was to consider IR or surgical placement, however patient does not believe he ended up with a tube at all other than an NG when he was hospitalized. Allergies Allergy/AdvReac Type Severity Reaction Status Date / Time lara Allergy Intermediate RASH OR Verified 06/21/22 13:58 TONGUE SWELLS ketorolac Allergy Intermediate shakes, Verified 06/21/22 13:58 nervous latex Allergy Mild IRRITATED Verified 06/21/22 13:58 aspirin Allergy Unknown hx Crohns Verified 06/21/22 13:58 disease tromethamine Allergy Unknown unknown Verified 06/21/22 13:58 Home Medications Medication Instructions Recorded Confirmed Type Medical marijuana 1 dose inhalation UD PRN pain 04/12/21 06/21/22 History methocarbamol 500 mg tablet 500 mg PO TID PRN spasms #90 tabs 01/17/22 06/21/22 Rx naloxone 4 mg/actuation nasal 1 spray intranasal Q2M PRN opioid 01/17/22 06/21/22 Rx spray (Narcan) overdose #2 ea hydromorphone intrathecal 03/22/22 06/21/22 History lorazepam 1 mg tablet (Ativan) 1 mg PO HS 06/21/22 06/21/22 History omeprazole 20 mg capsule,delayed 20 mg PO HS 06/21/22 06/21/22 History release Patient History Medical History Atherosclerosis of abdominal aorta Noted incidentally on CT abdomen 04/2019 Chronic abdominal pain 2/2 crohns COPD (chronic obstructive pulmonary disease) No inhaler use. Chest x-ray from 05/19/2019 notes stable hyperexpansion of the lungs consistent with emphysema. Crohns disease DVT (deep venous thrombosis) Years ago in LUE due to PICC line occlusion, was on Lovenox shots temporarily. 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 Renal cyst Noted on CT 04/2019 Smoker Surgical History H/O ileostomy History of colon resection SEVERAL due to crohns History of surgery INTRATHECAL PUMP REFILL Family History Other No pertinent family history Social History Smoking Status: Current every day smoker Tobacco Type: Cigarettes Cigarettes Per Day: 1 pack/day; Second Hand Exposure: Yes; Do You Dip or Chew Tobacco: No; Hx Alcohol Use: No Hx Substance Use: Yes Last Used Substance: Days (ago) Last Used Substance Other:: yesterday Substance Use Type Other:: Medical Marijuana Preferred Language: Yakut Communication Ability: Effective Visual Impairment: No Limitations Hearing Ability: Normal 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 Beliefs That Will Affect Care: None marital status: Single Current Living Situation: Significant Other current occupational status: disabled Other Information That Helps Us Care for You: No Feels Safe at Home: Yes Safety Concerns: Feels Safe At This Time Assistive Devices: Cane Review of Systems Constitutional: + weakness and + weight loss; no fever and no chills Respiratory: no cough and no dyspnea Cardiovascular: no chest pain Gastrointestinal: + abdominal pain and + diarrhea/loose stools (increase volume out of ostomy; 20+ times daily ); no blood in stools Musculoskeletal: no problem reported Integumentary: no problem reported Psychiatric: no problem reported Hematologic / Lymphatic: no unexplained weight loss Physical Exam Constitutional: + ill appearing and + thin Respiratory: normal respiratory effort Cardiovascular: Rate/Rhythm: regular rate Gastrointestinal (Abdomen): Percussion/Palpation: + abdomen tender and abdomen soft stoma present; surgical scarring noted Musculoskeletal: Head/Neck/Chest: normocephalic Psychiatric: Orientation: alert and oriented x 3 Results & Data ([facility]) Vital Signs (Past 12 Hours) Vital Signs Temp Pulse Pulse Resp BP Pulse Ox O2 Del Method 06/22/22 07:38 94/58 L 06/22/22 07:08 36.6 C 60 16 84/52 L 93 Room Air 06/22/22 04:06 36.5 C 57 L 16 89/56 L 93 Room Air 06/21/22 23:00 62 06/21/22 22:38 36.5 C 67 18 92/65 L 94 Room Air PG Care Time/CCT Total # of Minutes Spent Total Time Spent with Patient: Total time spent is greater than 50% in coordination of care (as documented) at patient's floor/unit and/or counseling patient: Coding Level of Care Code 43753 Inpt Consult Level 5 Diagnoses Partial small bowel obstruction K56.600 Crohn's disease of small and large intestines K50.80 Superior mesenteric artery syndrome K55.1 H/O ileostomy Z98.890 Presence of intrathecal pump Z96.89 Severe protein-calorie malnutrition E43
[2022-06-22] MEDS: D5NSS + 20MEQ KCL 20 MEQ/1,000 ML BAG IV SCH ×2 (09:30→23:01)
[2022-06-22] MEDS: methylPREDNISolone 40 MG in SYRINGE 0 ML IV SCH ×2 (10:26→20:33)
[2022-06-22] MEDS: NYSTATIN SUSP 500,000 U/5 ML UDC PO SCH ×4 (10:26→20:32)
[2022-06-22] MEDS: NICOTINE 21 MG/24 HR TDSY TD SCH (13:11)
[2022-06-22] MEDS: ACETAMINOPHEN 1,000 MG/100 ML VIAL IV PRN (20:32)
--- NOTE | 2022-06-22 21:09 | Hospitalist Progress Note ---
Date of Service June 22, 2022 Assessment & Plan (1) Crohns disease: Plan: Initial dx in 1998. s/p numerous surgeries for such ultimately leading to subtotal proctocolectomy with ileostomy formation in 2011. Per records has been followed by Dr Fer Hurtado at [facility] in [place] for many years. Last endoscopic evaluation was December 2021 (at [facility]) with negative EGD/ileoscopy for active Crohn's. Now with copious liquid stool output via ileostomy, likely 2000cc+ each day. Stool Biofire panel completely negative for infectious etiology. CRP is normal, but ESR is 55. There is concern he has active Crohn's disease once again. In the past has failed numerous medications including steroids, biological agents (remicade, humira), cyclosporine, etc (see [facility] note from today for additional information). Although CT abd/pelvis 06/21 shows "partial SBO" clinically he has no evidence of such. [facility] saw patient in consult today and has advised transfer to [facility] given his complex IBD history and since his primary GI physician Dr Hurtado practices there. He needs additional work-up to r/o active Crohn's (could send stool calprotectin but this will take 7-10 days for it to return). Also there has been discussion about alternative means of nutrition (G-tube placement, etc) given his ongoing malnutrition. In the past it was determined that such a tube would require IR placement ([facility] does not have IR capability). I called and spoke with Dr Marcin Gonzalez, hospitalist at [facility], late this afternoon. In light of the above I requested transfer to their hospital for ongoing care & GI consultation. Dr Gonzalez did accept the patient in transfer pending a discussion with on-call GI at their hospital. I had our community services coordinator fax the GI consultation note from today to Dr Gonzalez for her review. Patient & his significant other were informed of the above plan. While awaiting transfer - * start solumedrol 40mg IV BID for possible Crohn's flare * pain meds prn * clear liquid diet; advance to full liquids tonight or tomorrow as tolerated * add thiamine IV due to risk of refeeding syndrome * cont IV fluids * check nutritional labs in am (B12, folate, Fe studies) * PPI * replace low mag, etc (2) Weakness: Plan: Likely multifactorial - low sodium, low magnesium, high calcium, nutritional deficiencies, possible active Crohn's, etc. See #1 above. Cont IV fluids. Correct any electrolyte issues. (3) SBO (small bowel obstruction): Plan: ?pSBO on CT abd/pelvis at time of admission yesterday. Clinically there is NO evidence of pSBO at this time. COPIOUS stool output. No emesis. No abdominal distension. Tolerating clears. CT findings may reflect active Crohn's or other GI process. Stool BioFire panel negative. (4) Hypomagnesemia: Plan: Replaced IV. Resolved today. Repeat level am. (5) Hyponatremia: Plan: Urine Na <10 consistent with severe solute deficiency. Continue isotonic IV fluids. Repeat BMP am. (6) Chronic abdominal pain: Plan: 2nd Crohn's disease. Patient follows with [facility] regularly, has intrathecal pump in place with PTM settings 1/hour max amount of use 6 times/day, with simple continuous dose of Dilaudid 3.249 mg/day and bupivacaine 1.8414 mg/day. Initial pump placed in 2011 or 2012. Next pump refill scheduled for 07/26/2022. For breakthrough pain - dilaudid 0.5mg IV q3h prn. 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 Hospitalized [facility] at that time. Surgical details/intervention uncertain. (8) Presence of intrathecal pump: Plan: Follows with [facility] - see above. (9) Smoker: Plan: 1ppd of tobacco use at home. 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 nicoderm patch 21mg/day. (10) Candidiasis of mouth and esophagus: Plan: nystatin 5cc qid - swish/spit (11) Severe protein-calorie malnutrition: Plan: 2nd to #1 Clear liquid diet - advance to full liquids as tolerated add thiamine 200mg IV BID add MVI check B12, folate, Fe studies, 25-OH vit D in am long-term solution uncertain - feeing tube placement at Tertiary care? other? (12) Hypercalcemia: Plan: resolved likely was 2nd to dehydration state calcium wnl today (13) DVT prophylaxis: Plan: add heparin 5000 BID Plan total time today on care activities - 100 minutes (2 visits to bedside, discussion with [facility], phone calls [multiple] to [place], complex care coordination, filling out transfer paper work, etc) Admission and Anticipated Discharge Date Admission Date: June 21, 2022 Subjective tele overnight wnl patient reports ongoing abd pain but no worse than previous IV dilaudid prn is helping the pain denies vomiting no nausea asks for clear liquid diet to be resumed ileostomy output overnight was well over 1000cc admits to tobacco cravings - ok with nicoderm patch care d/w [facility] - they advise transfer to tertiary care center ([facility]) as patient is established with Dr Fer Hurtado, IBD specialist patient thinks he had EGD and ileoscopy in December 2021 - no active Crohn's then during my 2nd visit to pt's bedside later in the day I did update his significant other who was visiting Review of Systems Review of Systems: gen - no fevers cv - no cp pulm - no dyspnea GI - no blood per ileostomy psych - anxiety - mentions multiple psychosocial stressors Physical Exam Physical Exam: gen - very thin, cachectic, NAD, anxious mouth - thrush plaques on tongue, MM more moist today neck - no JVD heart - RRR, s1 s2, 1/6 WALLACE LSB lungs - CTA b/l abd - soft, mildly tender mid-abdomen, BS+, ND, pain pump device left abdomen, ileostomy right abdomen with pure liquid stool present in the bag ext - no edema, pulses 2+ b/l psych - anxious; a/o x 3 skin - no rash Results & Data Results & Data ([facility]) Vital Signs (Past 12 Hours) Vital Signs Temp Pulse Pulse Resp BP Pulse Ox O2 Del Method 06/22/22 19:30 36.6 C 66 18 100/59 L 96 Room Air 06/22/22 16:13 36.3 C L 65 18 106/68 95 Room Air 06/22/22 14:18 69 06/22/22 12:45 36.6 C 74 20 112/69 94 Room Air Laboratory Results Laboratory Results - last 24 hr 06/21/22 06/22/22 06/22/22 19:50 06:12 06:12 WBC 7.85 RBC 4.12 L Hgb 13.4 L D Hct 37.6 L MCV 91.3 MCH 32.5 MCHC 35.6 RDW Std Deviation 43.0 RDW Coeff of South 13.1 Plt Count 239 MPV 9.2 L Immature Gran % (Auto) 0.4 Neut % (Auto) 70.4 Lymph % (Auto) 19.4 Williamson % (Auto) 8.2 Eos % (Auto) 1.1 Baso % (Auto) 0.5 Neut # (Auto) 5.53 Lymph # (Auto) 1.52 Williamson # (Auto) 0.64 Eos # (Auto) 0.09 Baso # (Auto) 0.04 Immature Gran # (Auto) 0.03 H Sodium 131 L Potassium 3.7 Chloride 98 Carbon Dioxide 29 Anion Gap 4 BUN 11 Creatinine 0.84 Est Cr Clr Drug Dosing 72.4 Est GFR ( Amer) 113.4 Est GFR (Non-Af Amer) 97.9 BUN/Creatinine Ratio 13.1 Glucose 82 Calcium 8.5 D Magnesium 1.9 Stl C. cayetanensis PCR Not Detected Stool Rotavirus A PCR Not Detected Stl Adenov F 40/41 PCR Not Detected Stool Astrovirus (PCR) Not Detected Stool Campylobacter PCR Not Detected Stl C. diff Tox A/B PCR Not Detected Stool Cryptosporidium PCR Not Detected Stl E.coli Shiga Tox PCR Not Detected Stl Enterotoxigenic E PCR Not Detected Stool EPEC (PCR) Not Detected Stool EAEC (PCR) Not Detected Stl E. histolytica PCR Not Detected Stool Giardia Lamblia PCR Not Detected Stool Salmonella PCR Not Detected Stool Sapovirus (PCR) Not Detected Stl P. shigelloides PCR Not Detected Stl Shigella/EIEC PCR Not Detected St Y.enterocolitica PCR Not Detected Stool Vibrio (PCR) Not Detected Stl Vibrio cholerae PCR Not Detected Stl Norovirus GI/GII PCR Not Detected PG Care Time/CCT Total # of Minutes Spent Total Time Spent with Patient: Total time spent is greater than 50% in coordination of care (as documented) at patient's floor/unit and/or counseling patient: Prolonged Care Time Prolonged Care Time: Yes Total Prolonged Care Time: 100 Coding Level of Care Code 27405 Subseq Hosp Care Lvl 3 (25 - SIGNIFICANT, SEPARATELY IDENTIFIABLE ) Diagnoses Crohns disease K50.90 Weakness R53.1 SBO (small bowel obstruction) K56.609 Hypomagnesemia E83.42 Hyponatremia E87.1 Chronic abdominal pain R10.9; G89.29 Superior mesenteric artery syndrome K55.1 Presence of intrathecal pump Z96.89 Smoker F17.200 Candidiasis of mouth and esophagus B37.81; B37.0 Severe protein-calorie malnutrition E43 Hypercalcemia E83.52 DVT prophylaxis Z29.9 Additional Codes Prolonged Care Time - Prolonged Care Time: Yes ([id number]) Time Spent (min) 100
[2022-06-22] MEDS: THIAMINE HCL 200 MG in SODIUM CHLORIDE 0.9% 50 ML IV SCH (22:14)
[2022-06-22] MEDS: PANTOprazole 40 MG TAB PO SCH (22:15)
[2022-06-23] MEDS: HYDROmorphone INJ 0.5 MG/0.5 ML SYR IV PRN ×6 (03:19→23:23)
[2022-06-23 07:38] LABS: Iron 73 mcg/dl (35-175); Total Iron Binding Cap Calc 318 mcg/dl (250-450); Transferrin (FE) Percent Satur 23 % (20-50); Unsaturated Iron Binding Cap 245 mcg/dl (155-355)
[2022-06-23 07:40] LABS: BUN Creatinine Ratio 11.7 (10-20); Calcium 8.2 mg/dl (8.5-10.1); Creatinine Clr Calc Pharmacy 79.1 ml/min; Est GFR (African American) 117.6 ml/min; Est GFR (Non-African American) 101.4 ml/min; Magnesium 1.5 mg/dl (1.7-2.4); Phosphorus 2.8 mg/dl (2.5-4.9); Potassium 4.6 mmol/L (3.5-5.1)
[2022-06-23 07:50] LABS: Folate (Folic Acid) 12.39 ng/ml (>5.38)
[2022-06-23 07:54] LABS: Ferritin 114.9 ng/ml (8-388); Vitamin D, 25 Hydrox 11.4 ng/ml (30-100)
[2022-06-23] MEDS: NICOTINE 21 MG/24 HR TDSY TD SCH (08:38)
[2022-06-23] MEDS: HEPARIN SOD 5,000 UNIT/0.5 ML VIAL SQ SCH ×2 (08:38→20:14)
[2022-06-23] MEDS: methylPREDNISolone 40 MG in SYRINGE 0 ML IV SCH ×2 (08:38→20:13)
[2022-06-23] MEDS: NYSTATIN SUSP 500,000 U/5 ML UDC PO SCH ×4 (08:39→20:14)
[2022-06-23] MEDS: THIAMINE HCL 200 MG in SODIUM CHLORIDE 0.9% 50 ML IV SCH ×2 (08:42→20:14)
[2022-06-23] MEDS: D5NSS + 20MEQ KCL 20 MEQ/1,000 ML BAG IV SCH (11:06)
[2022-06-23] MEDS: ACETAMINOPHEN 1,000 MG/100 ML VIAL IV PRN (11:06)
[2022-06-23] MEDS: MULTI VIT W/MINERALS LIQUID 15 ML UDP PO SCH (11:09)
[2022-06-23] MEDS: MAGNESIUM SULFATE / D5W 1 GM/100 ML BAG IV SCH ×2 (11:23→12:46)
[2022-06-23] MEDS: CHOLECALCIFEROL 5,000 UNITS 125 MCG TAB PO SCH (11:25)
[2022-06-23] MEDS: SODIUM CHLORIDE 1 GM TABLET PO SCH ×2 (11:25→20:13)
[2022-06-23] MEDS: CYANOCOBALAMIN 1000 MCG/ML VIAL IM SCH (11:26)
[2022-06-23] MEDS: PANTOprazole 40 MG TAB PO SCH (20:15)
--- NOTE | 2022-06-23 21:34 | Hospitalist Progress Note ---
Date of Service June 23, 2022 Assessment & Plan (1) Crohns disease: Plan: Initial dx in 1998. s/p numerous surgeries for such ultimately leading to subtotal proctocolectomy with ileostomy formation in 2011. Per records has been followed by Dr Fer Hurtado at [facility] in [place] for many years. Last endoscopic evaluation was December 2021 (at [facility]) with negative EGD/ileoscopy for active Crohn's. Now with copious liquid stool output via ileostomy, likely 2000cc+ each day. Stool Biofire panel completely negative for infectious etiology. CRP is normal, but ESR is 55. There is concern he has active Crohn's disease once again. In the past has failed numerous medications including steroids, biological agents (remicade, humira), cyclosporine, etc (see [facility] note from today for additional information). Although CT abd/pelvis 06/21 shows "partial SBO" clinically he has no evidence of such. [facility] saw patient in consult and has advised transfer to [facility] given his complex IBD history and since his primary GI physician Dr Hurtado practices there. He needs additional work-up to r/o active Crohn's (could send stool calprotectin but this will take 7-10 days for it to return). Also there has been discussion about alternative means of nutrition (G-tube placement, etc) given his ongoing malnutrition. In the past it was determined that such a tube would require IR placement ([facility] does not have IR capability). I called and spoke with Dr Marcin Gonzalez, hospitalist at [facility], 06/22/22. In light of the above I requested transfer to their hospital for ongoing care & GI consultation. Dr Gonzalez did accept the patient in transfer pending a discussion with on-call GI at their hospital. I had our unitizer fax the GI consultation note from Dr Carrington/[facility] to Dr Gonzalez for her review. Still awaiting transfer. In meantime cont steroids; advance diet to low fiber; cont IV fluids but lower rate to 50cc/hr. Replete low mag. IM B12 supplementation. Cont IV thiamine. Fe studies wnl. (2) Weakness: Plan: Likely multifactorial - low sodium, low magnesium, high calcium, nutritional deficiencies, possible active Crohn's, etc. IMPROVED. (3) SBO (small bowel obstruction): Plan: ?pSBO on CT abd/pelvis at time of admission. Clinically there has been NO evidence of pSBO at any time. COPIOUS stool output. No emesis. No abdominal distension. Tolerating full liquids. CT findings may reflect active Crohn's or other GI process. Stool BioFire panel negative. (4) Hypomagnesemia: Plan: Replace again today. Mag level in am. (5) Hyponatremia: Plan: Urine Na <10 consistent with severe solute deficiency. Continue isotonic IV fluids. Add NaCl 1gm BID. BMP am. (6) Chronic abdominal pain: Plan: 2nd Crohn's disease. Patient follows with Md Efraín pain management regularly, has intrathecal pump in place with PTM settings 1/hour max amount of use 6 times/day, with simple continuous dose of Dilaudid 3.249 mg/day and bupivacaine 1.8414 mg/day. Initial pump placed in 2011 or 2012. Next pump refill scheduled for 07/26/2022. For breakthrough pain - dilaudid 0.5mg IV q3h prn. 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 Hospitalized [facility] at that time. Surgical details/intervention uncertain. (8) Presence of intrathecal pump: Plan: Follows with [facility] - see above. (9) Smoker: Plan: 1ppd of tobacco use at home. 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 nicoderm patch 21mg/day. (10) Candidiasis of mouth and esophagus: Plan: nystatin 5cc qid - swish/spit improved (11) Severe protein-calorie malnutrition: Plan: 2nd to #1 long-term solution uncertain - feeing tube placement at Tertiary care? other? he is tolerating full liquids advance to low fiber thiamine/b12 supplementation MVI (12) Hypercalcemia: Plan: resolved likely was 2nd to dehydration state calcium wnl today (13) DVT prophylaxis: Plan: heparin 5000 BID (14) Vitamin B12 deficiency: Plan: due to ileostomy and absorption issues vitamin B12 injections 1000mcg daily x 5 days then weekly x 1 month then monthly thereafter (15) Vitamin D deficiency: Plan: vit D 5000 IU daily Admission and Anticipated Discharge Date Admission Date: June 21, 2022 Subjective patient feeling much better in comparison to admission no nausea no vomiting ostomy output improved wants regular food he doesn't feel he should go to [place] - just "wants to go home" and he states he will follow-up there tele overnight wnl no new issues Review of Systems Review of Systems: gen - no fevers cv - no orthopnea pulm - no dyspnea GI - mild chronic abd pain; acute pain improved Physical Exam Physical Exam: gen - very thin, cachectic, NAD -- looks better than previous mouth - thrush plaques on tongue better; MMM today neck - no JVD heart - RRR, s1 s2, 1/6 W[place]ACE LSB lungs - CTA b/l abd - soft, minimal tenderness mid-abdomen, BS+, ND, pain pump device left abdomen, ileostomy right abdomen with pure liquid stool present in the bag ext - no edema, pulses 2+ b/l psych - less anxious today; a/o x 3 skin - no rash Results & Data Results & Data ([facility]) Vital Signs (Past 12 Hours) Vital Signs Temp Pulse Pulse Resp BP Pulse Ox O2 Del Method 06/23/22 19:10 36.7 C 72 18 102/56 L 94 Room Air 06/23/22 16:41 61 06/23/22 16:00 69 06/23/22 15:06 36.8 C 63 19 91/56 L 95 Room Air 06/23/22 11:02 36.7 C 60 17 92/54 L 92 Room Air Laboratory Results Laboratory Results - last 24 hr 06/23/22 06/23/22 06/23/22 06:39 06:39 06:39 Sodium 131 L Potassium 4.6 D Chloride 101 Carbon Dioxide 24 Anion Gap 6 BUN 9 Creatinine 0.77 Est Cr Clr Drug Dosing 79.1 Est GFR ( Amer) 117.6 Est GFR (Non-Af Amer) 101.4 BUN/Creatinine Ratio 11.7 Glucose 134 H Calcium 8.2 L Phosphorus 2.8 Magnesium 1.5 L Iron 73 TIBC 318 Unsaturated IBC 245 Transferrin % Sat 23 Ferritin 114.9 Vitamin B12 237 25-OH Vitamin D Total 11.4 L Folate 12.39 PG Care Time/CCT Total # of Minutes Spent Total Time Spent with Patient: Total time spent is greater than 50% in coordination of care (as documented) at patient's floor/unit and/or counseling patient: Coding Level of Care Code 68007 Subseq Hosp Care Lvl 3 Diagnoses Crohns disease K50.90 Weakness R53.1 SBO (small bowel obstruction) K56.609 Hypomagnesemia E83.42 Hyponatremia E87.1 Chronic abdominal pain R10.9; G89.29 Superior mesenteric artery syndrome K55.1 Presence of intrathecal pump Z96.89 Smoker F17.200 Candidiasis of mouth and esophagus B37.81; B37.0 Severe protein-calorie malnutrition E43 Hypercalcemia E83.52 DVT prophylaxis Z29.9 Vitamin B12 deficiency E53.8 Vitamin D deficiency E55.9
[2022-06-23] MEDS: LORazepam 1 MG TAB PO SCH (23:20)
[2022-06-24] MEDS: D5NSS + 20MEQ KCL 20 MEQ/1,000 ML BAG IV SCH (00:42)
[2022-06-24] MEDS: HYDROmorphone INJ 0.5 MG/0.5 ML SYR IV PRN ×5 (02:58→16:37)
[2022-06-24 06:31] LABS: Hematocrit (blood only) 36.4 % (40.1-51.0); Hemoglobin 12.5 g/dl (14.0-18.0); Mean Corpuscular Hemoglobin 32.6 pg (25.0-34.0); Mean Corpuscular Hgb Conc 34.3 g/dL (32.0-36.0); Mean Platelet Volume 10.1 fL (9.4-12.4); Platelet Count 216 K/uL (130-400); RDW Coefficient of Variation 13.3 % (11.5-14.5); RDW Standard Deviation 46.6 fL (36.4-46.3); Red Blood Count 3.83 M/uL (4.63-6.08); White Blood Count 15.24 K/ul (4.8-10.8)
[2022-06-24 07:06] LABS: BUN Creatinine Ratio 14.1 (10-20); Calcium 8.1 mg/dl (8.5-10.1); Creatinine Clr Calc Pharmacy 77.8 ml/min; Est GFR (Non-African American) 100.9 ml/min; Magnesium 1.7 mg/dl (1.7-2.4); Potassium 4.4 mmol/L (3.5-5.1)
[2022-06-24] MEDS ORDERED: MAGNESIUM SULFATE / D5W 1 GM/100 ML BAG IV ONE (09:15)
[2022-06-24] MEDS: CHOLECALCIFEROL 5,000 UNITS 125 MCG TAB PO SCH (09:25)
[2022-06-24] MEDS: methylPREDNISolone 40 MG in SYRINGE 0 ML IV SCH (09:25)
[2022-06-24] MEDS: SODIUM CHLORIDE 1 GM TABLET PO SCH ×2 (09:25→20:41)
[2022-06-24] MEDS: NICOTINE 21 MG/24 HR TDSY TD SCH (09:25)
[2022-06-24] MEDS: NYSTATIN SUSP 500,000 U/5 ML UDC PO SCH ×4 (09:25→20:41)
[2022-06-24] MEDS: MULTI VIT W/MINERALS LIQUID 15 ML UDP PO SCH (09:26)
[2022-06-24] MEDS: CYANOCOBALAMIN 1000 MCG/ML VIAL IM SCH (09:28)
[2022-06-24] MEDS: HEPARIN SOD 5,000 UNIT/0.5 ML VIAL SQ SCH ×2 (09:39→20:41)
[2022-06-24] MEDS: THIAMINE HCL 200 MG in SODIUM CHLORIDE 0.9% 50 ML IV SCH ×2 (09:42→20:41)
--- NOTE | 2022-06-24 15:59 | Communication Note ---
Date of Service: June 24, 2022 Mr. Cline is feeling much better today, with a significant improvement in symptoms. He currently denies any abdominal pain and states that he has only emptied his ostomy bag 2 times today. Initially it was felt that he would need to be transferred to [facility] for further management of his complicated surgical and IBD history. Recommended a low fiber diet and 8 week steroid taper beginning at 40 mg daily for 1 week and decreasing by 5 mg each week. Also recommended patient followup with [facility] as scheduled in 1-2 weeks for further evaluation and management. Patient was in agreement with this plan.
--- NOTE | 2022-06-24 20:25 | Hospitalist Progress Note ---
Date of Service June 24, 2022 Assessment & Plan (1) Crohns disease: Plan: Initial dx in 1998. s/p numerous surgeries for such ultimately leading to subtotal proctocolectomy with ileostomy formation in 2011. Per records has been followed by Dr Fer Hurtado at [facility] in [place] for many years. Last endoscopic evaluation was December 2021 (at [facility]) with negative EGD/ileoscopy for active Crohn's. Presented with copious liquid stool output/dumping via ileostomy, likely 2000cc+ each day. Stool Biofire panel completely negative for infectious etiology. CRP normal, but ESR was 55. There was concern he had active Crohn's disease at time of admission. In the past he had failed numerous medications including steroids, biological agents (remicade, humira), cyclosporine, etc (see [facility] [place] from today for additional information). IV solumedrol 40mg IV BID started hospital day #1. Although CT abd/pelvis 06/21 showed "partial SBO" clinically he had no evidence of such. [facility] saw patient in consult and has advised transfer to [facility] given his complex IBD history and since his primary GI physician Dr Hurtado practices there. Also there had0 been discussion about whether he would need alternative means of nutrition (G-tube placement, etc) given his ongoing malnutrition. In the past it was determined that such a tube would require IR placement ([facility] does not have IR capability). I called and spoke with Dr Marcin Gonzalez, hospitalist at [facility], 06/22/22. In light of the above I requested transfer to their hospital for ongoing care & GI consultation. Dr Gonzalez did accept the patient in transfer pending a discussion with on-call GI at their hospital. I had our director of pulmonary unit fax the GI consultation note from Dr Carrington[facility] to Dr Gonzalez for her review. We called [facility] today -- Still awaiting a bed and awaiting transfer. Patient HAS improved with IV steroids and IV fluids during his stay. Abd pain is controlled. Ostomy output is wnl. He feels better. Dr Carrington saw again today - feels that since he has improved can likely defer transfer. Planning to d/c him home tomorrow with steroids x 8 weeks (taper) starting with 40mg/day. Will schedule 40mg of prednisone, first dose tomorrow. Stop IV fluids. REpeat labs in am. If all is stable tomorrow can d/c home. (2) Weakness: Plan: Likely multifactorial - low sodium, low magnesium, high calcium, nutritional deficiencies, possible active Crohn's, etc. IMPROVED/resolved. (3) SBO (small bowel obstruction): Plan: ruled out. ?pSBO on CT abd/pelvis at time of admission. Clinically there has been NO evidence of pSBO at any time. CT findings may reflect active Crohn's or other GI process. Stool BioFire panel negative. (4) Hypomagnesemia: Plan: Replace 1gm x 1 today. Mag level in am. (5) Hyponatremia: Plan: Urine Na <10 consistent with severe solute deficiency. Improved with IV fluids and NaCl 1gm po BID. BMP am. (6) Chronic abdominal pain: Plan: 2nd Crohn's disease. Patient follows with [facility] pain management regularly, has intrathecal pump in place with PTM settings 1/hour max amount of use 6 times/day, with simple continuous dose of Dilaudid 3.249 mg/day and bupivacaine 1.8414 mg/day. Initial pump placed in 2011 or 2012. Next pump refill scheduled for 07/26/2022. For breakthrough pain - dilaudid, but stop the IV and convert to 2mg po q6h prn. 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 Hospitalized [facility] at that time. Surgical details/intervention uncertain. (8) Presence of intrathecal pump: Plan: Follows with [facility] - see above. (9) Smoker: Plan: 1ppd of tobacco use at home. [employer] to quit. nicoderm patch 21mg/day. (10) Candidiasis of mouth and esophagus: Plan: nystatin 5cc qid - swish/spit improved (11) Severe protein-calorie malnutrition: Plan: 2nd to #1 he is tolerating low fiber diet thiamine/b12 supplementation MVI appreciate nutrition speaking with him (12) Hypercalcemia: Plan: resolved likely was 2nd to dehydration state calcium wnl today (13) DVT prophylaxis: Plan: heparin 5000 BID (14) Vitamin B12 deficiency: Plan: due to ileostomy and absorption issues vitamin B12 injections 1000mcg daily x 5 days then weekly x 1 month then monthly thereafter (15) Vitamin D deficiency: Plan: vit D 5000 IU daily Plan updated pt's significant other by phone attempted to secure him a f/u appt at [facility] - they told our printing supplies sales representative he would need to call personally to set up appt [facility] will call him Monday to set up f/u appt with Dr Carrington Admission and Anticipated Discharge Date Admission Date: June 21, 2022 Subjective tele overnight wnl patient feels well tolerating low fiber diet without nausea/emesis has only emptied his ileostomy bag for about 500cc over the course of about 8-9 hours today he denies any worsening abd pain no new complaints does not want to go to [place] - feels he can return home Review of Systems Review of Systems: gen - no fever cv - no chest pain pulm - no dyspnea or cough Physical Exam Physical Exam: gen - very thin, cachectic, NAD -- but looks very good today mouth - thrush plaques on tongue resolved; MMM today neck - no JVD heart - RRR, s1 s2, 1/6 W[place]ACE LSB lungs - CTA b/l abd - soft, NT, BS+, ND, pain pump device left abdomen, ileostomy right abdomen ext - no edema, pulses 2+ b/l psych - a/o x 3 Results & Data Results & Data ([facility]) Vital Signs (Past 12 Hours) Vital Signs Temp Pulse Pulse Resp BP Pulse Ox O2 Del Method 06/24/22 20:13 36.5 C 71 17 115/66 95 Room Air 06/24/22 15:38 62 06/24/22 15:37 36.6 C 63 17 103/62 94 Room Air 06/24/22 12:13 36.6 C 61 18 107/66 93 Room Air Laboratory Results Laboratory Results - last 24 hr 06/24/22 06/24/22 05:34 05:34 WBC 15.24 H RBC 3.83 L Hgb 12.5 L Hct 36.4 L MCV 95.0 MCH 32.6 MCHC 34.3 RDW Std Deviation 46.6 H RDW Coeff of South 13.3 Plt Count 216 MPV 10.1 Sodium 134 L Potassium 4.4 Chloride 104 Carbon Dioxide 25 Anion Gap 5 BUN 11 Creatinine 0.78 Est Cr Clr Drug Dosing 77.8 Est GFR ( Amer) 117.0 Est GFR (Non-Af Amer) 100.9 BUN/Creatinine Ratio 14.1 Glucose 113 H Calcium 8.1 L Magnesium 1.7 PG Care Time/CCT Total # of Minutes Spent Total Time Spent with Patient: Total time spent is greater than 50% in coordination of care (as documented) at patient's floor/unit and/or counseling patient: Coding Level of Care Code 89722 Subseq Hosp Care Lvl 3 Diagnoses Crohns disease K50.90 Weakness R53.1 SBO (small bowel obstruction) K56.609 Hypomagnesemia E83.42 Hyponatremia E87.1 Chronic abdominal pain R10.9; G89.29 Superior mesenteric artery syndrome K55.1 Presence of intrathecal pump Z96.89 Smoker F17.200 Candidiasis of mouth and esophagus B37.81; B37.0 Severe protein-calorie malnutrition E43 Hypercalcemia E83.52 DVT prophylaxis Z29.9 Vitamin B12 deficiency E53.8 Vitamin D deficiency E55.9
[2022-06-24] MEDS: HYDROmorphone HCL 2 MG TAB PO PRN (20:40)
[2022-06-24] MEDS: PANTOprazole 40 MG TAB PO SCH (20:41)
[2022-06-24] MEDS: LORazepam 1 MG TAB PO SCH (22:22)
[2022-06-25 08:00] LABS: Hematocrit (blood only) 36.1 % (40.1-51.0); Hemoglobin 12.6 g/dl (14.0-18.0); Mean Corpuscular Hemoglobin 32.7 pg (25.0-34.0); Mean Corpuscular Hgb Conc 34.9 g/dL (32.0-36.0); Mean Corpuscular Volume 93.8 fL (80.0-100.0); Mean Platelet Volume 9.9 fL (9.4-12.4); Platelet Count 227 K/uL (130-400); RDW Coefficient of Variation 13.4 % (11.5-14.5); RDW Standard Deviation 45.9 fL (36.4-46.3); Red Blood Count 3.85 M/uL (4.63-6.08); White Blood Count 12.77 K/ul (4.8-10.8)
[2022-06-25] MEDS: SODIUM CHLORIDE 1 GM TABLET PO SCH (08:25)
[2022-06-25] MEDS: CHOLECALCIFEROL 5,000 UNITS 125 MCG TAB PO SCH (08:25)
[2022-06-25] MEDS: NICOTINE 21 MG/24 HR TDSY TD SCH (08:25)
[2022-06-25] MEDS: NYSTATIN SUSP 500,000 U/5 ML UDC PO SCH (08:25)
[2022-06-25] MEDS: HEPARIN SOD 5,000 UNIT/0.5 ML VIAL SQ SCH (08:26)
[2022-06-25] MEDS: CYANOCOBALAMIN 1000 MCG/ML VIAL IM SCH (08:26)
[2022-06-25] MEDS: MULTI VIT W/MINERALS LIQUID 15 ML UDP PO SCH (08:26)
[2022-06-25] MEDS: THIAMINE HCL 200 MG in SODIUM CHLORIDE 0.9% 50 ML IV SCH (08:29)
[2022-06-25 08:33] LABS: BUN Creatinine Ratio 12.3 (10-20); Calcium 8.1 mg/dl (8.5-10.1); Creatinine Clr Calc Pharmacy 83.1 ml/min; Est GFR (African American) 115.1 ml/min; Est GFR (Non-African American) 99.4 ml/min; Potassium 3.9 mmol/L (3.5-5.1)
[2022-06-25] MEDS: HYDROmorphone HCL 2 MG TAB PO PRN (08:51)
[2022-06-25] MEDS ORDERED: predniSONE 20 MG TAB PO SCH (09:00)
--- NOTE | 2022-06-25 11:49 | Discharge Summary ---
Date of Service date of admission - June 21, 2022 date of discharge - June 25, 2022 Admission HPI Per Admitting Provider Tigre Cline is a 57-year-old male with past medical history significant for intractable abdominal pain secondary to Crohn's disease with intrathecal pump pr esent, s/p ileostomy, SMA syndrome, and COPD with current tobacco use who presents today with loose stools and decreased appetite. He was at a GI appointment today and in triage reported extreme weakness, nausea, and very minimal intake over the past week and therefore was referred here for further evaluation. Admittedly, patient has had poor p.o. intake for months and in fact was seeing GI today via referral from pain management to consider a feeding tube. Over the past week, it has been much worse, stating most days he only gets a few bites of food down before feeling immediately fall and becoming nauseous. There are days when he does not eat anything at all. He has not vomited, but notices any food he does not just seems to go right through him and his ostomy has been putting out large amounts of nonbloody liquid brown stool. He feels that he has no energy and his abdominal pain is worse than it typically is. He did not notice any fever or chills, body aches, chest pain, palp itations, dyspnea, vomiting, hematochezia, melena, or constipation. Upon presentation, BP was initially low at 88/60, and HR 97, however CPAP. BP now improved to 109/64, HR 79. He is afebrile and SPO2 >95% on room air. Labs significant for leukocytosis WBC 11.29, sodium 132, serum bicarb 90, calcium 10.9, magnesium 1.5, T bili 1.7. Renal function is about baseline. UA with hyaline casts, ketones, and protein trace blood and bilirubin. CT A/P shows proximal small polyps that are distended and fluid-filled all distal small loops are decompressed which favors at least partial SBO. There is not a discrete transition point. There is no intraperitoneal free air or focally thick-walled bowel loops. Also noted are postoperative changes from proctocolectomy ileostomy decompressed bladder with wall thickening. Principal Diagnosis 1. Crohn's disease with suspected exacerbation 2. Failure to thrive 3. Ileostomy status 4. Hyponatremia 5. Vitamin B12 deficiency (level = 237) 6. Vitamin D deficiency (level = 11.4) 7. Chronic abdominal pain with intrathecal pain pump Discharge Exam gen - very thin, cachectic, NAD, well-hydrated mouth - thrush plaques on tongue resolved; MMM neck - no JVD heart - RRR, s1 s2, 1/6 WALLACE LSB lungs - CTA b/l abd - soft, NT, BS+, ND, pain pump device left abdomen, ileostomy right abdomen with liquid stool ext - no edema, pulses 2+ b/l psych - a/o x 3 Discharge Data Allergies Allergy/AdvReac Type Severity Reaction Status Date / Time lara Allergy Intermediate RASH OR Verified 06/21/22 13:58 TONGUE SWELLS ketorolac Allergy Intermediate shakes, Verified 06/21/22 13:58 nervous latex Allergy Mild IRRITATED Verified 06/21/22 13:58 aspirin Allergy Unknown hx Crohns Verified 06/21/22 13:58 disease tromethamine Allergy Unknown unknown Verified 06/21/22 13:58 Consultations [facility] Ordered Studies Chest X-Ray 06/21/22 14:57 XR chest 1V portable CLINICAL HISTORY: illness TECHNIQUE: Single frontal radiograph of the chest was obtained. Comparison: Comparison is made to chest radiograph 11/05/2020 FINDINGS: No lines and tubes are seen. The cardiomediastinal silhouette is normal. The lungs are clear apart from chronic emphysematous changes. No evidence of pleural effusion or pneumothorax. IMPRESSION: No acute abnormalities and in particular no evidence of pneumonia. ACT 112: Negative or not required by law. Electronically signed by: Vivek Wilson M.D. 06/21/2022 3:57 PM Abdomen/Pelvis CT 06/21/22 15:36 CT SCAN OF THE ABDOMEN AND PELVIS WITH IV CONTRAST CLINICAL HISTORY: Right-sided abdominal pain. History of Crohn's disease. COMPARISON STUDY: No priors. TECHNIQUE: Following the IV administration of 87 cc of Optiray 300, CT scan of the abdomen and pelvis is performed from the lung bases to the proximal femora. Images are reviewed in the axial, sagittal, and coronal planes. IV contrast was administered without complication. A dose lowering technique was utilized adhering to the principles of ALARA. The examination is degraded by streak artifact from a pain pump device in the left abdominal wall. CT DOSE: 246.62 mGy.cm FINDINGS: Lung bases: The heart is normal in size and without pericardial effusion. Emphysematous changes noted at the lung bases. There is bibasilar scarring/atelectasis. No airspace consolidation or pleural effusion is identified.. Liver: The contrast-enhanced liver is normal in size, contour, and attenuation. There is no intrahepatic biliary ductal dilatation. The hepatic veins and portal veins are patent. Gallbladder: Surgically absent and clips in the gallbladder fossa. Spleen: Normal in size and attenuation. Pancreas: Unremarkable. Adrenal glands: Unremarkable. Kidneys: The contrast enhanced kidneys are normal in size and without hydronephrosis. The kidneys enhance symmetrically. A 2.2 cm cyst is noted in the right lower pole. Additional subcentimeter cortical hypodensities also likely represent cysts but are too small for definitive characterization Abdominal vasculature: The abdominal aorta is normal in course and caliber noting advanced atherosclerotic calcification. Bowel: There is postoperative change from proctocolectomy and right lower quadrant ileostomy. The proximal small bowel loops are distended and fluid- filled, measuring up to 3.3 cm in diameter. The distal small bowel loops are decompressed leading to the ostomy. The appearance favors a small bowel obstruction. Exact transition point is not delineated, but is likely located in the pelvis. No focally thick-walled bowel loops are identified. There is no pneumatosis intestinalis or portal venous gas. Peritoneum: There is no intraperitoneal free air or abdominal ascites. Lymphadenopathy: None. Pelvic viscera: The bladder is decompressed and appears circumferentially thick walled. The prostate gland is mildly enlarged and heterogeneous. The seminal vesicles are normal as imaged. Skeletal structures: The skeletal structures are osteopenic. No lytic or blastic lesions are seen. Soft tissues: The patient is cachectic. A pain pump device is present within the left lower quadrant abdominal wall. The catheter enters the central canal in the upper lumbar region. IMPRESSION: 1. There is postoperative change from proctocolectomy and right lower quadrant ileostomy. 2. The proximal small bowel loops are distended and fluid-filled, while the distal small bowel loops are decompressed. The appearance favors at least partial small bowel obstruction. A discrete transition point is not identified, but likely located in the pelvis. 3. No intraperitoneal free air is seen. No focally thick-walled bowel loops identified. 4. Emphysema. 5. The bladder is decompressed and appears circumferentially thick walled. Correlate with clinical findings and urinalysis. 6. Additional findings as above. ACT 112: Negative or not required by law. Electronically signed by: Alexander Larkin M.D. 06/21/2022 5:11 PM Hospital Course (1) Crohns disease: Initial dx in 1998. s/p numerous surgeries for such ultimately leading to subtotal proctocolectomy with ileostomy formation in 2011. Per records has been followed by Dr Fer Hurtado at [facility] in [place] for many years. Last endoscopic evaluation was December 2021 (at [facility]) with negative EGD/ileoscopy for active Crohn's. Presented with copious liquid stool output/dumping via ileostomy, likely 2000cc+ each day. Stool Biofire panel completely negative for infectious etiology. CRP normal, but ESR was 55. Although CT abd/pelvis 06/21/22 showed "partial SBO" clinically he had no evidence of such. There was concern he had active Crohn's disease at time of admission. He was seen by [facility] and IV solumedrol 40mg IV BID was started on hospital day #1. In the past he had failed numerous medications including steroids, biological agents (remicade, humira), cyclosporine, etc. Given his complex IBD history, [facility] recommended transfer to [facility] for ongoing care. Indeed [facility] was contacted and preparations were being made for Mr Cline to be transferred. However, while awaiting transfer, Mr Cline IMPROVED with the IV steroids. Abdominal pain also improved. Ostomy output improved as well. Ostomy output was about 1500cc or less each day. He overall felt much better. Late in the stay [facility] saw patient once again. Give his improvement it was felt that the transfer to [place] could be canceled. Dr Joe Carrington advised a slow prednisone taper starting with 40mg/day and tapering down by 5mg once a week. He will continue a low fiber diet at discharge. He should follow-up with [facility] and/or [facility] within 2 weeks of discharge to check on stability of his Crohn's disease. He may need repeat endoscopic evaluation. Of note - the patient's CT abd/pelvis was placed on CD-rom for patient to take to [facility]. (2) Weakness: Likely multifactorial - low sodium, low magnesium, high calcium, nutritional deficiencies, possible active Crohn's, etc. IMPROVED/resolved. (3) SBO (small bowel obstruction): Ruled out. ?pSBO on CT abd/pelvis at time of admission. Clinically there was NO evidence of pSBO at any time. CT findings may reflect active Crohn's or other GI process. Stool BioFire panel negative. (4) Hypomagnesemia: Replaced and resolved Level was 1.7 at discharge (5) Hyponatremia: Urine Na <10 consistent with severe solute deficiency. Improved with IV fluids and NaCl 1gm po BID. Lowest Na level was 131, improving to 135 at discharge. (6) Chronic abdominal pain: 2nd Crohn's disease. Patient follows with [facility] regularly, has intrathecal pump in place with PTM settings 1/hour max amount of use 6 times/day, with simple continuous dose of Dilaudid 3.249 mg/day and bupivacaine 1.8414 mg/day. Next pump refill scheduled for 07/26/2022. 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 Hospitalized [facility] at that time. Surgical details/intervention uncertain. (8) Presence of intrathecal pump: Follows with [facility] - see above. (9) Smoker: 1ppd of tobacco use at home. Counseled to quit. (10) Candidiasis of mouth and esophagus: nystatin 5cc qid - improved prior to discharge. advised to take for 7 days post-discharge. (11) Severe protein-calorie malnutrition: 2nd to #1. initially was NPO, then started on clear liquids, and then advanced to low fiber diet. he was tolerating low fiber diet late in the stay. continue thiamine/b12 supplementation. continue MVI. (12) Hypercalcemia: resolved likely was 2nd to dehydration state calcium wnl prior to discharge (13) Vitamin B12 deficiency: due to ileostomy and absorption issues vitamin B12 injections 1000mcg daily while here then weekly x 1 month then monthly thereafter patient to give himself the B12 injections at home (has given such in the past) level = 237 recommend a repeat level in a few months to ensure stability (14) Vitamin D deficiency: level = 11.4 vit D 5000 IU daily advise repeat level in 2-3 months Total Time Total Time Spent Total Time Spent (In Minutes): 50 Discharge Plan Discharge Items Patient Disposition: Home - Self-Care Reason For Visit: Abdominal pain, nausea, weakness Discharge Diagnosis: 1. Crohn's disease with concern for active flare 2. Dehydration - resolved 3. Failure to thrive / malnutrition - due to Crohn's disease 4. Hyponatremia (low sodium) - resolved 5. Chronic pain syndrome - pain pump in place 6. Low magnesium - resolved 7. Thrush - improved 8. Vitamin B12 deficiency - due to Crohn's disease Activity: Resume your previous activity Non-emergency contact: Primary Care Provider, [facility] Call non-emergency contact if: you have any medication questions, your symptoms worsen, your pain is not controlled, your pain is worsening and you have a fever Follow-up/Referrals: Jd Lamar PA-C [Physician Plate Former] - 07/26/22 (keep scheduled appointment with pain management to refill your pain pump ) Vicente Valenzuela M.D. [Primary Care Provider] - (see your family doctor within 1 week of discharge ) Fer Hurtado M.D. [Outside Practitioners] - (OFFICE WILL CALL PATIENT) Macho Culver PA-C [Physician Plate Former] - 07/18/22 3:00 pm Diet: Low Fiber Addtl Attending Provider Instructions: Mr Cline, You were hospitalized for dehydration, electrolyte disturbances (low sodium, low magnesium, etc), vitamin deficiencies (low B12, etc), and significant stool output via your ileostomy. You improved over time with IV fluids, electrolyte replacement, vitamin replacement, and IV steroids. We ultimately resumed a basic diet than advanced it to low fiber. You were seen by Maranda KONG who initially had advised transfer to [facility] for ongoing care. Our plan was to transfer you there but you made improvement in all of your symptoms. Thus, we are deferring on the transfer and allowing you to discharge home with CLOSE FOLLOW-UP WITH YOUR GI DOCTORS at [place] and in [place]. Of note - we did not find any infections in the stool based on stool testing. We are concerned that your Crohn's disease may be active/uncontrolled; hence, we are sending you home on prednisone. Recommendations - 1. Prednisone - take as follows. Start 06/26/22. Take your prednisone with food. * 40mg (4 tabs) once daily x 7 days, THEN - * 35mg (3.5 tabs) once daily x 7 days, THEN - * 30mg (3 tabs) once daily x 7 days, THEN -- further instructions to follow from your GI doctors The prednisone is for your Crohn's. 2. Thrush (yeast in mouth) - nystatin solution, 5cc four times daily x 7 days. Swish/spit. Start this TODAY. 3. For nausea/vomiting - ondansetron 4mg every 6 hours as needed. 4. B12 shots - take as follows - * Monday, 06/26 -- 1000mcg injection (1ml) subcutaneous x 1 * Monday, 07/03 -- 1000mcg injection subcutaneous x 1 * Monday, 07/10 -- 1000mcg injection subcutaneous x 1 * Monday, 07/17 -- 1000mcg injection subcutaneous x 1 * Monday, 08/14 -- 1000mcg injection subcutaneous x 1 * once monthly shots thereafter -- please speak to your family doctor about additional refills 5. Vitamin D deficiency - 5000 IU tablet once daily x 2 months. Start this tomorrow. 6. Thiamine (Vitamin B1) - 200mg twice daily x 30 days. Start this today or tomorrow. 7. Please purchase an [id number] chewable daily multivitamin and take every day. Start at your convenience. 8. For the next few days please dump all of the contents from your ileostomy into a measuring cup and quantitate your stool outputs over a 24-hour period. Write these down. Ideally your 24-hour total output is about 1500cc or less. If you are seeing 2000cc or more over 24 hours you will become dehydrated easily. Please let your GI doctors know how much your ostomy is putting out. Follow-up - IS IS VERY IMPORTANT TO SEE MARANDA KONG (DR CARRINGTON) OR [facility] WITHIN THE NEXT 2 WEEKS TO RECHECK YOUR CROHN'S ALSO SEE YOUR FAMILY DOCTOR WITHIN THE NEXT 5-7 DAYS Return to any hospital if - * you are having fevers over 100 degrees * you are concerned about dehydration * you are having significant vomiting despite taking anti-vomiting medication * you have severe abdominal pain - unresponsive to your pain pump * you are concerned about your ileostomy output (either too much or too little) * any other concerns It was our pleasure to care for you! Dr Camacho Pending Studies at Discharge: No Stand-Alone Forms: My [facility], Smoking Cessation Medications and DC Order Prescriptions: New ondansetron 4 mg tablet,disintegrating 4 mg PO Q6H PRN (Reason: nausea and vomiting) Qty: 10 0RF nystatin 100,000 unit/mL suspension 5 ml PO QID Qty: 250 1RF Rx Instructions: swish and spit; take for 7 days. cholecalciferol (vitamin D3) [Vitamin D3] 125 mcg (5,000 unit) tablet 5,000 unit PO DAILY Qty: 30 1RF cyanocobalamin (vitamin B-12) 1,000 mcg/mL kit 1,000 mcg subcut DIRECTED Qty: 7 0RF Rx Instructions: Start 06/26/22. Take 1000mcg (1ml) SC qweekly x 4 weeks, then 1000mcg SC qmonthly thereafter. prednisone 10 mg tablet 10 mg PO .daily as directed Qty: 100 0RF Rx Instructions: Start 06/26/22. 4 tabs po daily x 7 days; then 3.5 tabs po daily x 7 days; then 3 tabs po daily x 7 days. Further instructions to follow from your GI provider. thiamine HCl (vitamin B1) 100 mg tablet 200 mg PO BID 30 Days Qty: 120 0RF Continued Medical marijuana aerosol 1 dose inhalation UD PRN (Reason: pain) methocarbamol 500 mg tablet 500 mg PO TID PRN (Reason: spasms) Qty: 90 2RF Narcan 4 mg/actuation spray,non-aerosol 1 spray intranasal Q2M PRN (Reason: opioid overdose) Qty: 2 0RF Rx Instructions: administer 1 dose into ONE nostril; alternate nostrils w each dose until help arrives hydromorphone 15 mg/mL intrathecal omeprazole 20 mg capsule,delayed release(DR/EC) 20 mg PO HS lorazepam [Ativan] 1 mg Tablet 1 mg PO HS Discharge Orders: Discharge Order (Routine); Ordered 06/25/22 Ordered By: Hiren Camacho Admission Data Admit Date/Time: 06/21/22 17:53 Attending Provider: Hiren Camacho Admit Provider: Hiren Camacho Primary Care Provider: Vicente Valenzuela Other Providers: Hiren Camacho ; Perry Gonzales ; [facility] Other Interventions: Discharge Summary Assessment (RN) Last Done: 06/25/22 11:52 Coding Level of Care Code D/C DAY MANAGEMENT >30 MINS Diagnoses Crohns disease K50.90 Weakness R53.1 SBO (small bowel obstruction) K56.609 Hypomagnesemia E83.42 Hyponatremia E87.1 Chronic abdominal pain R10.9; G89.29 Superior mesenteric artery syndrome K55.1 Presence of intrathecal pump Z96.89 Smoker F17.200 Candidiasis of mouth and esophagus B37.81; B37.0 Severe protein-calorie malnutrition E43 Hypercalcemia E83.52 Vitamin B12 deficiency E53.8 Vitamin D deficiency E55.9
== END 2022-06-25 13:10 | disposition home health service (06) | DRG 385 ==
LOC: ED 14:40 → 2S 17:53

== ENCOUNTER 2022-07-25 17:13 | Inpatient (IN) ==
[2022-07-25 19:36] LABS: Basophils # (auto) 0.05 K/uL (0-0.2); Basophils % (auto) 0.3 %; Eosinophils # (auto) 0.01 K/uL (0-0.50); Eosinophils % (auto) 0.1 %; Hematocrit (blood only) 52.4 % (40.1-51.0); Hemoglobin 19.5 g/dl (14.0-18.0); Immature Granulocytes # (auto) 0.08 K/uL (0.00-0.02); Immature Granulocytes % (auto) 0.5 %; Lymphocytes # (auto) 1.87 K/uL (1.2-3.4); Lymphocytes % (auto) 12.7 %; Mean Corpuscular Hemoglobin 33.4 pg (25.0-34.0); Mean Corpuscular Hgb Conc 37.2 g/dL (32.0-36.0); Mean Corpuscular Volume 89.7 fL (80.0-100.0); Mean Platelet Volume 9.2 fL (9.4-12.4); Monocytes # (auto) 1.09 K/uL (0.24-0.82); Monocytes % (auto) 7.4 %; Neutrophils # (auto) 11.63 K/uL (1.4-6.5); Platelet Count 307 K/uL (130-400); RDW Coefficient of Variation 13.7 % (11.5-14.5); RDW Standard Deviation 45.2 fL (36.4-46.3); Red Blood Count 5.84 M/uL (4.63-6.08); White Blood Count 14.73 K/ul (4.8-10.8)
[2022-07-25] MEDS ORDERED: ONDANSETRON INJ 2 MG/ML 2 ML VIAL IV STA (20:13)
[2022-07-25 20:29] LABS: Alanine Aminotransferase 21 U/L (7-52); Albumin Globulin Ratio 1.5 (0.9-2); Alkaline Phosphatase 75 U/L (34-104); Anion Gap 14 (3-11); BUN Creatinine Ratio 19.3 (10-20); Bilirubin,Total 2.2 mg/dl (0.2-1.0); Blood Urea Nitrogen 21 mg/dl (6-23); Calcium 10.9 mg/dl (8.5-10.1); Carbon Dioxide 33 mmol/L (21-32); Chloride 82 mmol/L (98-107); Creatinine Clr Calc Pharmacy 56.3 ml/min; Est GFR (African American) 87.5 ml/min; Est GFR (Non-African American) 75.5 ml/min; Globulin 3.4 gm/dl (2.5-4.0); Glucose 115 mg/dl (70-99(Fasting)); Sodium 129 mmol/L (136-145); Total Protein 8.4 gm/dl (6.0-8.3)
[2022-07-25 21:02] LABS: Appearance Urine Clear (Clear); Bacteria Urine Automated Negative (Negative); Bilirubin Urine Negative (Negative); Blood Urine 3+ (Negative); Color Urine Yellow; Glucose Urine UA Negative (Negative); Ketones Urine Trace (Negative); Leukocyte Esterase Urine Negative (Negative); Nitrite Urine Negative (Negative); Protein Urine Trace (Negative); RBC Urine Automated >30 /hpf (0-4); Specific Gravity Urine 1.023 (1.000-1.030); Urobilinogen Urine Negative (Negative); pH Urine 6.5 (4.5-7.5)
[2022-07-25] MEDS ORDERED: LACTATED RINGER'S 1,000 ML IV ONE ×2 (21:31→22:48)
[2022-07-25] MEDS: HYDROmorphone INJ 0.5 MG/0.5 ML SYR IV PRN ×2 (21:41→23:00)
[2022-07-25 21:56] LABS: Potassium 3.4 mmol/L (3.5-5.1)
[2022-07-25 23:05] LABS: Adenovirus PCR Not Detected (NotDetected); Bordetella parapertussis PCR Not Detected (NotDetected); Bordetella pertussis PCR Not Detected (NotDetected); Chlamydia pneumoniae PCR Not Detected (NotDetected); Coronavirus 229E PCR Not Detected (NotDetected); Coronavirus CoV-2 (COVID19)PCR Not Detected (NotDetected); Coronavirus HKU1 PCR Not Detected (NotDetected); Coronavirus NL63 PCR Not Detected (NotDetected); Coronavirus OC43PCR Not Detected (NotDetected); Human Metapneumovirus PCR Not Detected (NotDetected); Influenza A PCR Not Detected (NotDetected); Influenza B PCR Not Detected (NotDetected); Mycoplasma pneumoniae PCR Not Detected (NotDetected); Parainfluenza Virus 1 PCR Not Detected (NotDetected); Parainfluenza Virus 2 PCR Not Detected (NotDetected); Parainfluenza Virus 3 PCR Not Detected (NotDetected); Parainfluenza Virus 4 PCR Not Detected (NotDetected); Respiratory Syncytial VirusPCR Not Detected (NotDetected); Rhinovirus/Enterovirus PCR Not Detected (NotDetected)
--- NOTE | 2022-07-25 23:18 | Emergency Department Note ---
History of Present Illness General Chief complaint: Dehydration Stated complaint: DEHYDRATED, CHRONS DISEASE FLARE Time Seen by Provider: 07/25/22 21:15 Source: patient Mode of arrival: ambulatory Limitations: no limitations History of Present Illness Provider complaint: Abdominal pain, dehydration, nausea/vomiting Onset (ago): day(s) Maximum Pain Intensity: 7 This is a 57-year-old male who presents emergency department due to concern for dehydration, abdominal pain, as well as nausea and vomiting. Patient does have a history of Crohn's disease and did have a prior surgical resection and now has an ileostomy. With GI both locally as well as in [place]. Patient states 2 days ago he began noticing increasing abdominal pain, did have a few limited episodes of nausea and vomiting, and was concerned for dehydration as he has had minimal oral intake and no appetite. Patient states he does not feel bloated and distended. Patient states he has had similar presentations with a flare of his Crohn's, with a viral illness, as well as with a bowel obstruction. He denies any recent change in medications. No change in the effluent from the bag, no blood noted. Patient states his granddaughter has been ill recently although he is uncertain if he could have acquired a viral illness from her. He denies fevers or chills. Home Medications Medication Instructions Recorded Confirmed Type Medical marijuana 1 dose inhalation UD PRN pain 04/12/21 07/18/22 History methocarbamol 500 mg tablet 500 mg PO TID PRN spasms #90 tabs 01/17/22 07/18/22 Rx naloxone 4 mg/actuation nasal 1 spray intranasal Q2M PRN opioid 01/17/22 07/18/22 Rx spray (Narcan) overdose #2 ea hydromorphone intrathecal 03/22/22 07/18/22 History lorazepam 1 mg tablet (Ativan) 1 mg PO HS 06/21/22 07/18/22 History omeprazole 20 mg capsule,delayed 20 mg PO HS 06/21/22 07/18/22 History release cholecalciferol (vitamin D3) 125 5,000 unit PO DAILY #30 tabs 06/25/22 07/18/22 Rx mcg (5,000 unit) tablet (Vitamin D3) cyanocobalamin (vitamin B-12) 1,000 mcg subcut DIRECTED #7 ea 06/25/22 07/18/22 Rx 1,000 mcg/mL injection kit nystatin 100,000 unit/mL oral 5 ml PO QID #250 mL 06/25/22 07/18/22 Rx suspension ondansetron 4 mg disintegrating 4 mg PO Q6H PRN nausea and 06/25/22 07/18/22 Rx tablet vomiting #10 tabs prednisone 10 mg tablet 10 mg PO .daily as directed #100 06/25/22 07/18/22 Rx tabs Allergies Allergy/AdvReac Type Severity Reaction Status Date / Time lara Allergy Intermediate RASH OR Verified 07/18/22 14:49 TONGUE SWELLS ketorolac Allergy Intermediate shakes, Verified 07/18/22 14:49 nervous latex Allergy Mild IRRITATED Verified 07/18/22 14:49 aspirin Allergy Unknown hx Crohns Verified 07/18/22 14:49 disease tromethamine Allergy Unknown unknown Verified 07/18/22 14:49 Past Med/Surg History Medical History (Updated 07/27/22 @ 02:31 by June Jerome DO) Atherosclerosis of abdominal aorta Noted incidentally on CT abdomen 04/2019 Candidiasis of mouth and esophagus Chronic abdominal pain 2/2 crohns COPD (chronic obstructive pulmonary disease) No inhaler use. Chest x-ray from 05/19/2019 notes stable hyperexpansion of the lungs consistent with emphysema. Crohn's disease of small and large intestines Crohns disease DVT (deep venous thrombosis) Years ago in [facility] [place] to P[place] line occlusion, was on Lovenox shots temporarily. 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 Renal cyst Noted on CT 04/2019 Severe protein-calorie malnutrition Severe protein-calorie malnutrition Smoker Superior mesenteric artery syndrome Vitamin B12 deficiency Vitamin D deficiency Weakness Surgical History H/O ileostomy History of colon resection SEVERAL due to crohns History of surgery INTRATHECAL PUMP REFILL Family History Other No pertinent family history Social History Smoking Status: Current every day smoker Tobacco Type: Cigarettes Cigarettes Per Day: 1 pack/day; Second Hand Exposure: No; Hx Alcohol Use: No Hx Substance Use: Yes Last Used Substance: Days (ago) Last Used Substance Other:: yesterday Substance Use Type Other:: medical marijuana Preferred Language: Wolof Communication Ability: Effective Visual Impairment: No Limitations Hearing Ability: Normal 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 Beliefs That Will Affect Care: None marital status: Single Current Living Situation: Family current occupational status: disabled Feels Safe at Home: Yes Assistive Devices: None Review of Systems A total of 10 systems reviewed and were otherwise negative All systems reviewed & are unremarkable except as noted in HPI & below Physical Exam Vital Signs Vital Signs - 24 hr 07/25/22 17:34 07/25/22 20:23 07/25/22 22:00 Temperature 36.7 C Temperature Source Temporal Artery Scan Pulse Rate 107 H Pulse Rate [Apical] 94 H 87 Respiratory Rate 20 17 16 Respiratory Effort / Characteristics Non-Labored Spontaneous Respiratory Depth Normal Respiratory Pattern Regular Blood Pressure 118/83 Blood Pressure [Right Arm] 98/77 L 96/78 L Blood Pressure Mean 94 Blood Pressure Mean [Right Arm] 84 84 Pulse Oximetry 93 98 96 Oxygen Delivery Method Room Air Room Air Room Air Sepsis Recent Fever Within 48 Hours No Sepsis New/Unexplained Change in Mental Status No Sepsis Action Taken by Nursing No Action Required GENERAL: alert, ill appearing, well nourished, no distress, non-toxic EYE EXAM: normal conjunctiva, PERRL and EOM's grossly intact OROPHARYNX: no exudate, no erythema, lips, buccal mucosa, and tongue normal and mucous membranes are dry NECK: supple, no nuchal rigidity, no adenopathy, non-tender LUNGS: Clear to auscultation. Normal chest wall mechanics, no w/r/r HEART: no murmurs, S1 normal and S2 normal ABDOMEN: abdomen soft, diffuse discomfort with palpation, right-sided ostomy bag, normo-active bowel sounds, no masses, no rebound or guarding. No d istention. Dull to percussion. BACK: Back is symmetrical on inspection and there is no deformity, no midline tenderness, no CVA tenderness. SKIN: no rashes and no bruising UPPER EXTREMITIES: upper extremities are grossly normal. FROM, nml pulses b/l. LOWER EXTREMITIES: No pitting edema. FROM, nml pulses b/l. NEURO EXAM: Normal sensorium, cranial nerves II-XII grossly intact, normal speech, no gross weakness of arms, no gross weakness of legs. Gross sensation intact. Course Administered Medications Lorazepam (Lorazepam 1 Mg Tab) 1 mg PO HS JI Stop: 08/25/22 20:59 Last Admin: 07/26/22 21:55 Dose: 1 mg Documented By: TMD Morphine Sulfate (Morphine Sulfate 2 Mg/Ml Carp) 2 mg IV Q4 PRN PRN Reason: Pain Stop: 08/09/22 03:30 Last Admin: 07/27/22 02:27 Dose: 2 mg Documented By: Admin: 07/26/22 21:56 Dose: 2 mg Documented By: Admin: 07/26/22 17:44 Dose: 2 mg Documented By: Admin: 07/26/22 09:20 Dose: 2 mg Documented By: Admin: 07/26/22 04:58 Dose: 2 mg Documented By: KEV Pantoprazole Sodium (Pantoprazole 40 Mg Tab) 40 mg PO [facility] Stop: 08/25/22 20:59 Last Admin: 07/26/22 21:55 Dose: 40 mg Documented By: TMD Prednisone (Prednisone 10 Mg Tablet) 20 mg PO DAILY JI; Taper Stop: 08/23/22 08:59 Last Admin: 07/26/22 08:46 Dose: 20 mg Documented By: NH Discontinued Medications Bisacodyl (Bisacodyl 5 Mg Tabec) 5 mg PO NOW ONE Stop: 07/26/22 08:48 Last Admin: 07/26/22 11:23 Dose: Not Given Documented By: CELIA Hydromorphone HCl (Hydromorphone Inj 0.5 Mg/0.5 Ml Syr) 0.5 mg IV Q15M PRN PRN Reason: Pain Stop: 08/08/22 21:30 Last Admin: 07/26/22 03:04 Dose: 0.5 mg Documented By: Admin: 07/26/22 00:15 Dose: 0.5 mg Documented By: Admin: 07/25/22 23:00 Dose: 0.5 mg Documented By: Admin: 07/25/22 21:41 Dose: 0.5 mg Documented By: KEV Lactated Ringer's (Lr) 1,000 mls @ 999 mls/hr IV .Q1H1M ONE Stop: 07/25/22 22:31 Last Infusion: 07/25/22 22:53 Dose: 0 mls/hr Documented By: Admin: 07/25/22 21:41 Dose: 999 mls/hr Documented By: KEV Lactated Ringer's (Lr) 1,000 mls @ 999 mls/hr IV .Q1H1M ONE Stop: 07/25/22 23:48 Last Infusion: 07/26/22 00:12 Dose: 0 mls/hr Documented By: Admin: 07/25/22 22:54 Dose: 999 mls/hr Documented By: KEV Lactated Ringer's (Lr) 1,000 mls @ 125 mls/hr IV .Q8H JI Stop: 07/26/22 21:45 Last Admin: 07/26/22 17:44 Dose: 80 mls/hr Documented By: Infusion: 07/26/22 17:10 Dose: 80 mls/hr Documented By: Admin: 07/26/22 04:40 Dose: 80 mls/hr Documented By: KEV Ondansetron HCl (Ondansetron Inj 2 Mg/Ml 2 Ml Vial) 4 mg IV NOW STA Stop: 07/25/22 20:14 Last Admin: 07/25/22 20:16 Dose: 4 mg Documented By: KEV Potassium Chloride (Potassium Chloride Crtab 20 Meq Tabcr) 40 meq PO NOW STA Stop: 07/26/22 03:32 Last Admin: 07/26/22 04:41 Dose: 40 meq Documented By: KEV Medical Decision Making Differential Diagnosis Differential diagnoses includes but is not limited to gastritis, peptic ulcer disease, GERD, gallbladder disease, pancreatitis, small bowel obstruction, acute coronary syndrome, pericarditis, ischemic bowel, irritable bowel disease, irritable bowel syndrome, appendicitis, diverticulitis, malignancy, hernia, urinary tract infection, torsion, [/ectopic (if female)], perforation, trauma, infectious. Medical Records Attestation: I reviewed the patient's medical records. Home Medications Current Medication List: was personally reviewed by me Laboratory Data Attestation: I reviewed the patient's lab results. Result diagrams: 07/26/22 08:50 07/26/22 08:50 Lab Results 07/25/22 07/25/22 07/25/22 Range/Units 19:31 19:31 19:31 WBC 14.73 H (4.8-10.8) K/ul RBC 5.84 (4.63-6.08) M/uL Hgb 19.5 H (14.0-18.0) g/dl Hct 52.4 H (40.1-51.0) % MCV 89.7 (80.0-100.0) fL MCH 33.4 (25.0-34.0) pg MCHC 37.2 H (32.0-36.0) g/dL RDW Std Deviation 45.2 (36.4-46.3) fL RDW Coeff of South 13.7 (11.5-14.5) % Plt Count 307 (130-400) K/uL MPV 9.2 L (9.4-12.4) fL Immature Gran % (Auto) 0.5 % Neut % (Auto) 79.0 % Lymph % (Auto) 12.7 % Clare % (Auto) 7.4 % Eos % (Auto) 0.1 % Baso % (Auto) 0.3 % Neut # (Auto) 11.63 H (1.4-6.5) K/uL Lymph # (Auto) 1.87 (1.2-3.4) K/uL Clare # (Auto) 1.09 H (0.24-0.82) K/uL Eos # (Auto) 0.01 (0-0.50) K/uL Baso # (Auto) 0.05 (0-0.2) K/uL Immature Gran # (Auto) 0.08 H (0.00-0.02) K/uL ESR (0-20) mm/hr Sodium 129 L (136-145) mmol/L Potassium TNP Chloride 82 L (98-107) mmol/L Carbon Dioxide 33 H (21-32) mmol/L Anion Gap 14 H (3-11) BUN 21 (6-23) mg/dl Creatinine 1.09 (0.6-1.4) mg/dl Est Cr Clr Drug Dosing 56.3 ml/min Est GFR ( Amer) 87.5 ml/min Est GFR (Non-Af Amer) 75.5 ml/min BUN/Creatinine Ratio 19.3 (10-20) Glucose 115 H (70-99(Fasting)) mg/dl Lactate (0.4-2.0) mmol/L Calcium 10.9 H (8.5-10.1) mg/dl Magnesium (1.7-2.4) mg/dl Total Bilirubin 2.2 H (0.2-1.0) mg/dl AST TNP ALT 21 (7-52) U/L Alkaline Phosphatase 75 (34-104) U/L C-Reactive Protein (0-0.5) mg/dl Total Protein 8.4 H (6.0-8.3) gm/dl Albumin 5.0 (3.4-5.0) gm/dl Globulin 3.4 (2.5-4.0) gm/dl Albumin/Globulin Ratio 1.5 (0.9-2) Lipase 45 (11-82) U/L Urine Color Urine Appearance (Clear) Urine pH (4.5-7.5) Ur Specific Bude (1.000-1.030) Urine Protein (Negative) Urine Glucose (UA) (Negative) Urine Ketones (Negative) Urine Blood (Negative) Urine Nitrite (Negative) Urine Bilirubin (Negative) Urine Urobilinogen (Negative) Ur Leukocyte Esterase (Negative) Urine WBC (Auto) (0-5) /hpf Urine RBC (Auto) (0-4) /hpf U Hyaline Cast (Auto) (0-5) /lpf U Epithel Cells (Auto) (0-5) /lpf Urine Bacteria (Auto) (Negative) Adenovirus (PCR) (NotDetected) B. pertussis DNA (PCR) (NotDetected) B.parapertussis DNA PCR (NotDetected) C. pneumoniae DNA (PCR) (NotDetected) Coronavirus OC43 (PCR) (NotDetected) Coronavirus HKU1 (PCR) (NotDetected) Coronavirus 229E (PCR) (NotDetected) SARS-CoV-2 (PCR) (NotDetected) Coronavirus NL63 (PCR) (NotDetected) Human Metapneumovir PCR (NotDetected) Influenza Type A (PCR) (NotDetected) Influenza Type B (PCR) (NotDetected) M. pneumoniae (PCR) (NotDetected) Parainfluenza 1 (PCR) (NotDetected) Parainfluenza 2 (PCR) (NotDetected) Parainfluenza 3 (PCR) (NotDetected) Parainfluenza 4 (PCR) (NotDetected) RSV (PCR) (NotDetected) Entero/Rhino (PCR) (NotDetected) 07/25/22 07/25/22 07/25/22 Range/Units 19:31 20:33 20:33 WBC (4.8-10.8) K/ul RBC (4.63-6.08) M/uL Hgb (14.0-18.0) g/dl Hct (40.1-51.0) % MCV (80.0-100.0) fL MCH (25.0-34.0) pg MCHC (32.0-36.0) g/dL RDW Std Deviation (36.4-46.3) fL RDW Coeff of South (11.5-14.5) % Plt Count (130-400) K/uL MPV (9.4-12.4) fL Immature Gran % (Auto) % Neut % (Auto) % Lymph % (Auto) % Clare % (Auto) % Eos % (Auto) % Baso % (Auto) % Neut # (Auto) (1.4-6.5) K/uL Lymph # (Auto) (1.2-3.4) K/uL Clare # (Auto) (0.24-0.82) K/uL Eos # (Auto) (0-0.50) K/uL Baso # (Auto) (0-0.2) K/uL Immature Gran # (Auto) (0.00-0.02) K/uL ESR 40 H (0-20) mm/hr Sodium (136-145) mmol/L Potassium Cancelled Chloride (98-107) mmol/L Carbon Dioxide (21-32) mmol/L Anion Gap (3-11) BUN (6-23) mg/dl Creatinine (0.6-1.4) mg/dl Est Cr Clr Drug Dosing ml/min Est GFR ( Amer) ml/min Est GFR (Non-Af Amer) ml/min BUN/Creatinine Ratio (10-20) Glucose (70-99(Fasting)) mg/dl Lactate (0.4-2.0) mmol/L Calcium (8.5-10.1) mg/dl Magnesium (1.7-2.4) mg/dl Total Bilirubin (0.2-1.0) mg/dl AST Cancelled ALT (7-52) U/L Alkaline Phosphatase (34-104) U/L C-Reactive Protein (0-0.5) mg/dl Total Protein (6.0-8.3) gm/dl Albumin (3.4-5.0) gm/dl Globulin (2.5-4.0) gm/dl Albumin/Globulin Ratio (0.9-2) Lipase (11-82) U/L Urine Color Yellow Urine Appearance Clear (Clear) Urine pH 6.5 (4.5-7.5) Ur Specific Bude 1.023 (1.000-1.030) Urine Protein Trace H (Negative) Urine Glucose (UA) Negative (Negative) Urine Ketones Trace H (Negative) Urine Blood 3+ H (Negative) Urine Nitrite Negative (Negative) Urine Bilirubin Negative (Negative) Urine Urobilinogen Negative (Negative) Ur Leukocyte Esterase Negative (Negative) Urine WBC (Auto) 1-5 (0-5) /hpf Urine RBC (Auto) >30 H (0-4) /hpf U Hyaline Cast (Auto) 1-5 (0-5) /lpf U Epithel Cells (Auto) 5-10 H (0-5) /lpf Urine Bacteria (Auto) Negative (Negative) Adenovirus (PCR) (NotDetected) B. pertussis DNA (PCR) (NotDetected) B.parapertussis DNA PCR (NotDetected) C. pneumoniae DNA (PCR) (NotDetected) Coronavirus OC43 (PCR) (NotDetected) Coronavirus HKU1 (PCR) (NotDetected) Coronavirus 229E (PCR) (NotDetected) SARS-CoV-2 (PCR) (NotDetected) Coronavirus NL63 (PCR) (NotDetected) Human Metapneumovir PCR (NotDetected) Influenza Type A (PCR) (NotDetected) Influenza Type B (PCR) (NotDetected) M. pneumoniae (PCR) (NotDetected) Parainfluenza 1 (PCR) (NotDetected) Parainfluenza 2 (PCR) (NotDetected) Parainfluenza 3 (PCR) (NotDetected) Parainfluenza 4 (PCR) (NotDetected) RSV (PCR) (NotDetected) Entero/Rhino (PCR) (NotDetected) 07/25/22 07/25/22 07/25/22 Range/Units 21:23 21:23 22:00 WBC (4.8-10.8) K/ul RBC (4.63-6.08) M/uL Hgb (14.0-18.0) g/dl Hct (40.1-51.0) % MCV (80.0-100.0) fL MCH (25.0-34.0) pg MCHC (32.0-36.0) g/dL RDW Std Deviation (36.4-46.3) fL RDW Coeff of South (11.5-14.5) % Plt Count (130-400) K/uL MPV (9.4-12.4) fL Immature Gran % (Auto) % Neut % (Auto) % Lymph % (Auto) % Clare % (Auto) % Eos % (Auto) % Baso % (Auto) % Neut # (Auto) (1.4-6.5) K/uL Lymph # (Auto) (1.2-3.4) K/uL Clare # (Auto) (0.24-0.82) K/uL Eos # (Auto) (0-0.50) K/uL Baso # (Auto) (0-0.2) K/uL Immature Gran # (Auto) (0.00-0.02) K/uL ESR (0-20) mm/hr Sodium (136-145) mmol/L Potassium 3.4 L Chloride (98-107) mmol/L Carbon Dioxide (21-32) mmol/L Anion Gap (3-11) BUN (6-23) mg/dl Creatinine (0.6-1.4) mg/dl Est Cr Clr Drug Dosing ml/min Est GFR ( Amer) ml/min Est GFR (Non-Af Amer) ml/min BUN/Creatinine Ratio (10-20) Glucose (70-99(Fasting)) mg/dl Lactate (0.4-2.0) mmol/L Calcium (8.5-10.1) mg/dl Magnesium 1.7 (1.7-2.4) mg/dl Total Bilirubin (0.2-1.0) mg/dl AST 17 ALT (7-52) U/L Alkaline Phosphatase (34-104) U/L C-Reactive Protein < 0.50 (0-0.5) mg/dl Total Protein (6.0-8.3) gm/dl Albumin (3.4-5.0) gm/dl Globulin (2.5-4.0) gm/dl Albumin/Globulin Ratio (0.9-2) Lipase (11-82) U/L Urine Color Urine Appearance (Clear) Urine pH (4.5-7.5) Ur Specific Bude (1.000-1.030) Urine Protein (Negative) Urine Glucose (UA) (Negative) Urine Ketones (Negative) Urine Blood (Negative) Urine Nitrite (Negative) Urine Bilirubin (Negative) Urine Urobilinogen (Negative) Ur Leukocyte Esterase (Negative) Urine WBC (Auto) (0-5) /hpf Urine RBC (Auto) (0-4) /hpf U Hyaline Cast (Auto) (0-5) /lpf U Epithel Cells (Auto) (0-5) /lpf Urine Bacteria (Auto) (Negative) Adenovirus (PCR) Not Detected (NotDetected) B. pertussis DNA (PCR) Not Detected (NotDetected) B.parapertussis DNA PCR Not Detected (NotDetected) C. pneumoniae DNA (PCR) Not Detected (NotDetected) Coronavirus OC43 (PCR) Not Detected (NotDetected) Coronavirus HKU1 (PCR) Not Detected (NotDetected) Coronavirus 229E (PCR) Not Detected (NotDetected) SARS-CoV-2 (PCR) Not Detected (NotDetected) Coronavirus NL63 (PCR) Not Detected (NotDetected) Human Metapneumovir PCR Not Detected (NotDetected) Influenza Type A (PCR) Not Detected (NotDetected) Influenza Type B (PCR) Not Detected (NotDetected) M. pneumoniae (PCR) Not Detected (NotDetected) Parainfluenza 1 (PCR) Not Detected (NotDetected) Parainfluenza 2 (PCR) Not Detected (NotDetected) Parainfluenza 3 (PCR) Not Detected (NotDetected) Parainfluenza 4 (PCR) Not Detected (NotDetected) RSV (PCR) Not Detected (NotDetected) Entero/Rhino (PCR) Not Detected (NotDetected) 07/25/22 07/26/22 Range/Units 22:36 00:29 WBC (4.8-10.8) K/ul RBC (4.63-6.08) M/uL Hgb (14.0-18.0) g/dl Hct (40.1-51.0) % MCV (80.0-100.0) fL MCH (25.0-34.0) pg MCHC (32.0-36.0) g/dL RDW Std Deviation (36.4-46.3) fL RDW Coeff of South (11.5-14.5) % Plt Count (130-400) K/uL MPV (9.4-12.4) fL Immature Gran % (Auto) % Neut % (Auto) % Lymph % (Auto) % Clare % (Auto) % Eos % (Auto) % Baso % (Auto) % Neut # (Auto) (1.4-6.5) K/uL Lymph # (Auto) (1.2-3.4) K/uL Clare # (Auto) (0.24-0.82) K/uL Eos # (Auto) (0-0.50) K/uL Baso # (Auto) (0-0.2) K/uL Immature Gran # (Auto) (0.00-0.02) K/uL ESR (0-20) mm/hr Sodium (136-145) mmol/L Potassium Chloride (98-107) mmol/L Carbon Dioxide (21-32) mmol/L Anion Gap (3-11) BUN (6-23) mg/dl Creatinine (0.6-1.4) mg/dl Est Cr Clr Drug Dosing ml/min Est GFR ( Amer) ml/min Est GFR (Non-Af Amer) ml/min BUN/Creatinine Ratio (10-20) Glucose (70-99(Fasting)) mg/dl Lactate 2.4 H* 1.6 (0.4-2.0) mmol/L Calcium (8.5-10.1) mg/dl Magnesium (1.7-2.4) mg/dl Total Bilirubin (0.2-1.0) mg/dl AST ALT (7-52) U/L Alkaline Phosphatase (34-104) U/L C-Reactive Protein (0-0.5) mg/dl Total Protein (6.0-8.3) gm/dl Albumin (3.4-5.0) gm/dl Globulin (2.5-4.0) gm/dl Albumin/Globulin Ratio (0.9-2) Lipase (11-82) U/L Urine Color Urine Appearance (Clear) Urine pH (4.5-7.5) Ur Specific Bude (1.000-1.030) Urine Protein (Negative) Urine Glucose (UA) (Negative) Urine Ketones (Negative) Urine Blood (Negative) Urine Nitrite (Negative) Urine Bilirubin (Negative) Urine Urobilinogen (Negative) Ur Leukocyte Esterase (Negative) Urine WBC (Auto) (0-5) /hpf Urine RBC (Auto) (0-4) /hpf U Hyaline Cast (Auto) (0-5) /lpf U Epithel Cells (Auto) (0-5) /lpf Urine Bacteria (Auto) (Negative) Adenovirus (PCR) (NotDetected) B. pertussis DNA (PCR) (NotDetected) B.parapertussis DNA PCR (NotDetected) C. pneumoniae DNA (PCR) (NotDetected) Coronavirus OC43 (PCR) (NotDetected) Coronavirus HKU1 (PCR) (NotDetected) Coronavirus 229E (PCR) (NotDetected) SARS-CoV-2 (PCR) (NotDetected) Coronavirus NL63 (PCR) (NotDetected) Human Metapneumovir PCR (NotDetected) Influenza Type A (PCR) (NotDetected) Influenza Type B (PCR) (NotDetected) M. pneumoniae (PCR) (NotDetected) Parainfluenza 1 (PCR) (NotDetected) Parainfluenza 2 (PCR) (NotDetected) Parainfluenza 3 (PCR) (NotDetected) Parainfluenza 4 (PCR) (NotDetected) RSV (PCR) (NotDetected) Entero/Rhino (PCR) (NotDetected) Imaging Data My Impression: kub: no obvious SBO, ostomy noted ECG Data Attestation: I personally reviewed and interpreted this ECG as follows: Indication: + abdominal pain Rate (beats per minute): 97 Rhythm: + normal sinus ECG Intervals/blocks: + Normal QRS and + Normal QT ECG [place]: + Normal ECG ST segments: + Nonspecific ST abnormalities MDM Narrative An order was placed for continuous cardiac monitoring. The monitor shows a rate of _80_ with _normal sinus_ rhythm. This is a 57-year-old male presents emerged department due to concern for abdominal pain, nausea, vomiting, possible dehydration. Patient with a long history of Crohn's disease including prior surgical resection and ostomy. Patient was afebrile and hemodynamically stable despite being ill-appearing. Labs drawn and sent patient started on IV fluids, given medication for pain as well as nausea. Patient did receive several doses of IV Dilaudid and 2 L of IV fluid in the emergency room, and did not have significant improvement. He was rechecked multiple times while in the ER. Patient has had similar presentations with flares previously, uncertain etiology of this current flare. Patient was concern for possible viral illness as he was in close contact with his granddaughter who was ill recently. Patient did have a mild leukocytosis, procalcitonin was negative. No evidence of HIWOT. Due to persistent symptoms, case discussed with hospitalist for additional evaluation and management. At this time I do not suspect perforation, GI bleed, bowel obstruction, intussusception, or mesenteric ischemia. I do not suspect other occult or vascular emergency. No evidence for bacteremia/sepsis at this time. Impression & Plan Abdominal pain, Dehydration, Nausea & vomiting, Hyponatremia, Hypokalemia Discharge Plan Visit Data Chief Complaint: Dehydration Stated Complaint: DEHYDRATED, CHRONS DISEASE FLARE ED Provider: June Jerome Discharge Problem: Abdominal pain, Dehydration, Nausea & vomiting, Hyponatremia, Hypokalemia Patient Disposition: Admitted As Inpatient Discharge Instructions Interventions: ED Discharge Assessment Last Done: 07/26/22 03:30
[2022-07-26] MEDS: HYDROmorphone INJ 0.5 MG/0.5 ML SYR IV PRN ×2 (00:15→03:04)
[2022-07-26 01:38] LABS: Magnesium 1.7 mg/dl (1.7-2.4)
--- NOTE | 2022-07-26 01:59 | History & Physical Report ---
Date of Service July 26, 2022 Assessment & Plan (1) Crohns disease: Plan: 57-year-old male with history of intractable abdominal pain secondary to Crohn's, status post ileostomy, intrathecal pain pump in place presenting with several days of worsening abdominal pain, decreased oral intake as well as worsening watery diarrhea. Symptoms are similar to his prior flares of Crohn's disease. He denies abdominal distention and reports he is passing flatus and having bowel movements without difficulty. He is presently on a steroid taperprednisone 20 mg p.o. dailyPer GI, Dr. Carrington. Admit to medical Continue steroid 20 mg p.o. daily IV fluid and electrolyte repletion Morphine as needed for pain Zofran as needed for nausea GI consultation appreciated F/E/N LR at 80 mL/h x 2 L, potassium repletionWith repeat chemistry in a.m., n.p.o. for now Prophylaxislow risk for DVT Codefull Dispoadmit to medical History of Present Illness Chief Complaint: Abdominal pain Primary Care Provider: Vicente Valenzuela Tigre Cline is a 57yo male with history of intractable abdominal pain secondary to Crohn's disease, Intrathecal pain pump in place, history of ileostomy, history of SMA syndrome, presenting with diffuse abdominal pain, nausea, decreased oral intake as well as worsening of watery diarrhea.Symptoms have been ongoing for several days. He denies melena, hematochezia, fever, bloating. Denies chest pain, cough, shortness of breath.Patient has longstanding history of Crohn's. He was recently admitted to [facility] in June 2022 and was treated with IV steroids. He follows locally with GI as well as with a provider in [place].He is presently on a slow steroid tapercurrent doses prednisone 20 mg p.o. daily to be continued for 6 more days then he decreases it to 15 mg daily. In the ER he is afebrile, he dynamically stable, no acute distress. He is in discomfort Allergies Allergy/AdvReac Type Severity Reaction Status Date / Time lara Allergy Intermediate RASH OR Verified 07/18/22 14:49 TONGUE SWELLS ketorolac Allergy Intermediate shakes, Verified 07/18/22 14:49 nervous latex Allergy Mild IRRITATED Verified 07/18/22 14:49 aspirin Allergy Unknown hx Crohns Verified 07/18/22 14:49 disease tromethamine Allergy Unknown unknown Verified 07/18/22 14:49 Home Medications Medication Instructions Recorded Confirmed Type Medical marijuana 1 dose inhalation UD PRN pain 04/12/21 07/18/22 History methocarbamol 500 mg tablet 500 mg PO TID PRN spasms #90 tabs 01/17/22 07/18/22 Rx naloxone 4 mg/actuation nasal 1 spray intranasal Q2M PRN opioid 01/17/22 07/18/22 Rx spray (Narcan) overdose #2 ea hydromorphone intrathecal 03/22/22 07/18/22 History lorazepam 1 mg tablet (Ativan) 1 mg PO HS 06/21/22 07/18/22 History omeprazole 20 mg capsule,delayed 20 mg PO HS 06/21/22 07/18/22 History release cholecalciferol (vitamin D3) 125 5,000 unit PO DAILY #30 tabs 06/25/22 07/18/22 Rx mcg (5,000 unit) tablet (Vitamin D3) cyanocobalamin (vitamin B-12) 1,000 mcg subcut DIRECTED #7 ea 06/25/22 07/18/22 Rx 1,000 mcg/mL injection kit nystatin 100,000 unit/mL oral 5 ml PO QID #250 mL 06/25/22 07/18/22 Rx suspension ondansetron 4 mg disintegrating 4 mg PO Q6H PRN nausea and 06/25/22 07/18/22 Rx tablet vomiting #10 tabs prednisone 10 mg tablet 10 mg PO .daily as directed #100 06/25/22 07/18/22 Rx tabs Past Med/Surg History Medical History (Updated 07/26/22 @ 05:00 by Linda Canas DO) Atherosclerosis of abdominal aorta Noted incidentally on CT abdomen 04/2019 Candidiasis of mouth and esophagus Chronic abdominal pain 2/2 crohns COPD (chronic obstructive pulmonary disease) No inhaler use. Chest x-ray from 05/19/2019 notes stable hyperexpansion of the lungs consistent with emphysema. Crohn's disease of small and large intestines Crohns disease DVT (deep venous thrombosis) Years ago in [place] due to PICC line occlusion, was on Lovenox shots temporarily. 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 Renal cyst Noted on CT 04/2019 Severe protein-calorie malnutrition Severe protein-calorie malnutrition Smoker Superior mesenteric artery syndrome Vitamin B12 deficiency Vitamin D deficiency Weakness Surgical History H/O ileostomy History of colon resection SEVERAL due to crohns History of surgery INTRATHECAL PUMP REFILL Family History Other No pertinent family history Social History Smoking Status: Current every day smoker Tobacco Type: Cigarettes Cigarettes Per Day: 1 pack/day; Second Hand Exposure: Yes; Hx Alcohol Use: No Hx Substance Use: Yes Last Used Substance: Days (ago) Last Used Substance Other:: yesterday Substance Use Type Other:: Medical Marijuana Preferred Language: Ukrainian Communication Ability: Effective Visual Impairment: No Limitations Hearing Ability: Normal 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 Beliefs That Will Affect Care: None marital status: Single Current Living Situation: Significant Other current occupational status: disabled Feels Safe at Home: Yes Assistive Devices: Cane Review of Systems Review of Systems: All systems reviewed & are unremarkable except as noted in HPI & below Physical Exam Physical Exam: General: patient resting comfortably, NAD, non-toxic in appearance, AA&O x 4 Skin: warm, dry, intact, no rashes or lesions HEENT: NC/AT, PERRL, EOMI, anicteric sclera, conjunctiva without injection, external ear normal to inspection and nontender, nares patent, moist mucus membranes, dentition intact, no oropharyngeal lesions, neck supple, trachea midline, no LAD, no thyromegaly, no JVD Heart: +S1/S2, regular, no m/r/g Lungs: equal air entry bilaterally, no rales/rhonchi/wheezes Abd: +BS, soft, ND, diffusely tender to palpation, ileostomy in place, pain pump in place Ext: warm, 2+ pulses in UE/LE bilaterally, no clubbing/cyanosis or edema Neuro: nonfocal, patient AA&O x 4, speech intact, no facial droop, moving all extremities on command with equal strength 5/5 Results & Data Results & Data ([facility]) Vital Signs (Past 12 Hours) Vital Signs Temp Pulse Pulse Resp BP BP Pulse Ox 07/26/22 00:00 70 19 123/70 96 10/03/22 22:00 87 16 96/78 L 96 07/25/22 20:23 94 H 17 98/77 L 98 07/25/22 17:34 36.7 C 107 H 20 118/83 93 O2 Del Method 07/26/22 00:00 Room Air 07/25/22 22:00 Room Air 07/25/22 20:23 Room Air 07/25/22 17:34 Room Air Laboratory Results Laboratory Results WBC 14.73 K/ul (4.8-10.8) H 07/25/22 19:31 RBC 5.84 M/uL (4.63-6.08) 07/25/22 19:31 Hgb 19.5 g/dl (14.0-18.0) H 07/25/22 19:31 Hct 52.4 % (40.1-51.0) H 07/25/22 19:31 MCV 89.7 fL (80.0-100.0) 07/25/22 19:31 MCH 33.4 pg (25.0-34.0) 07/25/22 19:31 MCHC 37.2 g/dL (32.0-36.0) H 07/25/22 19:31 RDW Std Deviation 45.2 fL (36.4-46.3) 07/25/22 19:31 RDW Coeff of South 13.7 % (11.5-14.5) 07/25/22 19:31 Plt Count 307 K/uL (130-400) 07/25/22 19:31 MPV 9.2 fL (9.4-12.4) L 07/25/22 19:31 Immature Gran % (Auto) 0.5 % 07/25/22 19:31 Neut % (Auto) 79.0 % 07/25/22 19:31 Lymph % (Auto) 12.7 % 07/25/22 19:31 [place]berry % (Auto) 7.4 % 07/25/22 19:31 Eos % (Auto) 0.1 % 07/25/22 19:31 Baso % (Auto) 0.3 % 07/25/22 19:31 Neut # (Auto) 11.63 K/uL (1.4-6.5) H 07/25/22 19:31 Lymph # (Auto) 1.87 K/uL (1.2-3.4) 07/25/22 19:31 Newberry # (Auto) 1.09 K/uL (0.24-0.82) H 07/25/22 19:31 Eos # (Auto) 0.01 K/uL (0-0.50) 07/25/22 19:31 Baso # (Auto) 0.05 K/uL (0-0.2) 07/25/22 19:31 Immature Gran # (Auto) 0.08 K/uL (0.00-0.02) H 07/25/22 19:31 ESR 40 mm/hr (0-20) H 07/25/22 19:31 Sodium 129 mmol/L (136-145) L 07/25/22 19:31 Potassium 3.4 mmol/L (3.5-5.1) L 07/25/22 21:23 Chloride 82 mmol/L (98-107) L 07/25/22 19:31 Carbon Dioxide 33 mmol/L (21-32) H 07/25/22 19:31 Anion Gap 14 (3-11) H 07/25/22 19:31 BUN 21 mg/dl (6-23) 07/25/22 19:31 Creatinine 1.09 mg/dl (0.6-1.4) 07/25/22 19:31 Est Cr Clr Drug Dosing 56.3 ml/min 07/25/22 19:31 Est GFR ( Amer) 87.5 ml/min 07/25/22 19:31 Est GFR (Non-Af Amer) 75.5 ml/min 07/25/22 19:31 BUN/Creatinine Ratio 19.3 (10-20) 07/25/22 19:31 Glucose 115 mg/dl (70-99(Fasting)) H 07/25/22 19:31 Lactate 1.6 mmol/L (0.4-2.0) 07/26/22 00:29 Calcium 10.9 mg/dl (8.5-10.1) H 07/25/22 19:31 Magnesium 1.7 mg/dl (1.7-2.4) 07/25/22 21:23 Total Bilirubin 2.2 mg/dl (0.2-1.0) H 07/25/22 19:31 AST 17 U/L (13-39) 07/25/22 21:23 ALT 21 U/L (7-52) 07/25/22 19: Alkaline Phosphatase 75 U/L (34-104) 07/25/22 19:31 C-Reactive Protein < 0.50 mg/dl (0-0.5) 07/25/22 21:23 Total Protein 8.4 gm/dl (6.0-8.3) H 07/25/22 19: Albumin 5.0 gm/dl (3.4-5.0) 07/25/22: Globulin 3.4 gm/dl (2.5-4.0) 07/25/22: Albumin/Globulin Ratio 1.5 (0.9-2) 07/25/22 19: Lipase 45 U/L (11-82) 07/25/22 19: Urine Color Yellow 07/25/22 20: Urine Appearance Clear (Clear) 07/25/22 20: Urine pH 6.5 (4.5-7.5) 07/25/22 20:33 Ur Specific Flom 1.023 (1.000-1.030) 07/25/22 20: Urine Protein Trace (Negative) H 07/25/22 20: Urine Glucose (UA) Negative (Negative) 07/25/22: Urine Ketones Trace (Negative) H 07/25/22 20: Urine Blood 3+ (Negative) H 07/25/22 20: Urine Nitrite Negative (Negative) 07/25/22: Urine Bilirubin Negative (Negative) 07/25/22 20: Urine Urobilinogen Negative (Negative) 07/25/22 20:33 Ur Leukocyte Esterase Negative (Negative) 07/25/22 20:33 Urine WBC (Auto) 1-5 /hpf (0-5) 07/25/22 20: Urine RBC (Auto) >30 /hpf (0-4) H 07/25/22 20: U Hyaline Cast (Auto) 1-5 /lpf (0-5) 07/25/22 20: U Epithel Cells (Auto) 5-10 /lpf (0-5) H 07/25/22 20:33 Urine Bacteria (Auto) Negative (Negative) 07/25/22 20:33 Adenovirus (PCR) Not Detected (NotDetected) 07/25/22 22:00 B. pertussis DNA (PCR) Not Detected (NotDetected) 07/25/22 22:00 B.parapertussis DNA PCR Not Detected (NotDetected) 07/25/22 22:00 C. pneumoniae DNA (PCR) Not Detected (NotDetected) 07/25/22 22:00 Coronavirus OC43 (PCR) Not Detected (NotDetected) 07/25/22 22:00 Coronavirus HKU1 (PCR) Not Detected (NotDetected) 07/25/22 22:00 Coronavirus 229E (PCR) Not Detected (NotDetected) 07/25/22 22:00 SARS-CoV-2 (PCR) Not Detected (NotDetected) 07/25/22 22:00 Coronavirus NL63 (PCR) Not Detected (NotDetected) 07/25/22 22:00 Human Metapneumovir PCR Not Detected (NotDetected) 07/25/22 22:00 Influenza Type A (PCR) Not Detected (NotDetected) 07/25/22 22:00 Influenza Type B (PCR) Not Detected (NotDetected) 07/25/22 22:00 M. pneumoniae (PCR) Not Detected (NotDetected) 07/25/22 22:00 Parainfluenza 1 (PCR) Not Detected (NotDetected) 07/25/22 22:00 Parainfluenza 2 (PCR) Not Detected (NotDetected) 07/25/22 22:00 Parainfluenza 3 (PCR) Not Detected (NotDetected) 07/25/22 22:00 Parainfluenza 4 (PCR) Not Detected (NotDetected) 07/25/22 22:00 RSV (PCR) Not Detected (NotDetected) 07/25/22 22:00 Entero/Rhino (PCR) Not Detected (NotDetected) 07/25/22 22:00 PG Care Time/CCT Total # of Minutes Spent Total Time Spent with Patient: Total time spent is greater than 50% in coordination of care (as documented) at patient's floor/unit and/or counseling patient: Coding Level of Care Code 09688 Initial Inpt Care Lvl 2 Diagnoses Crohns disease K50.90
[2022-07-26] MEDS ORDERED: METHOCARBAMOL 500 MG TABLET PO PRN (03:31)
[2022-07-26] MEDS ORDERED: ONDANSETRON INJ 2 MG/ML 2 ML VIAL IV PRN (03:31)
[2022-07-26] MEDS ORDERED: POTASSIUM CHLORIDE CRTAB 20 MEQ TABCR PO STA (03:31)
[2022-07-26] MEDS: LACTATED RINGER'S 1,000 ML IV SCH ×2 (04:40→17:44)
[2022-07-26] MEDS: MoRPHine SULFATE 2 MG/ML CARP IV PRN ×4 (04:58→21:56)
--- NOTE | 2022-07-26 08:45 | Electrocardiogram Report ---
Test Reason : Blood Pressure : / mmHG Vent. Rate : 097 BPM Atrial Rate : 097 BPM P-R Int : 118 ms QRS Dur : 084 ms QT Int : 334 ms P-R-T Axes : 074 116 078 degrees QTc Int : 424 ms Poor data quality, interpretation may be adversely affected Sinus rhythm PACs, some consecutive Possible Left atrial enlargement Left posterior fascicular block Abnormal ECG When compared with ECG of 21-JUN-2022 15:08, No change Confirmed by Sandeep Katz ([id number]) on 07/26/2022 8:45:14 AM Referred By: REFERRED SELF Confirmed By:Hector Katz
[2022-07-26] MEDS: predniSONE 10 MG TABLET PO SCH (08:46)
[2022-07-26] MEDS ORDERED: bisacodyL 5 MG TABEC PO ONE (08:47)
[2022-07-26 09:23] LABS: Basophils # (auto) 0.03 K/uL (0-0.2); Basophils % (auto) 0.3 %; Eosinophils # (auto) 0.03 K/uL (0-0.50); Eosinophils % (auto) 0.3 %; Hematocrit (blood only) 42.5 % (40.1-51.0); Hemoglobin 15.4 g/dl (14.0-18.0); Immature Granulocytes # (auto) 0.03 K/uL (0.00-0.02); Immature Granulocytes % (auto) 0.3 %; Lymphocytes # (auto) 1.89 K/uL (1.2-3.4); Lymphocytes % (auto) 16.2 %; Mean Corpuscular Hemoglobin 33.1 pg (25.0-34.0); Mean Corpuscular Hgb Conc 36.2 g/dL (32.0-36.0); Mean Corpuscular Volume 91.4 fL (80.0-100.0); Mean Platelet Volume 8.8 fL (9.4-12.4); Monocytes # (auto) 0.98 K/uL (0.24-0.82); Monocytes % (auto) 8.4 %; Neutrophils # (auto) 8.69 K/uL (1.4-6.5); Neutrophils % (auto) 74.5 %; Platelet Count 244 K/uL (130-400); RDW Coefficient of Variation 13.9 % (11.5-14.5); RDW Standard Deviation 46.6 fL (36.4-46.3); Red Blood Count 4.65 M/uL (4.63-6.08); White Blood Count 11.65 K/ul (4.8-10.8)
--- NOTE | 2022-07-26 09:53 | Gastrointestinal Consultation ---
Date of Consultation July 26, 2022 Assessment & Plan (1) Crohns disease: Discussed case with Dr. Gonzales who advised on plan. - suspect his pain is related to multiple abdominal surgeries. KUB this morning unremarkable. - continue with IV fluids and electrolyte repletion. - continue zofran as needed for nausea. - we discussed surgical consultation to discuss peg tube as this was not deemed able to be placed endoscopically in the past and he is awaiting, but he declines. He tells me he only wishes to have done in [place]. - given complaints of increased ostomy output, will check biofire testing to rule out any infectious causes. - will also check calprotectin though this will take sometime to come back to help evaluate for crohn's activity. - if stool studies are unremarkable for infection, can consider starting questran 4gm daily to see if this helps slow down ostomy output. - okay to advance diet to clears and can advance as tolerated. History of Present Illness Reason for Consultation: Crohn's flare Requesting Physician: Dr. Linda Canas Attending Physician: Manuelito Camarena DO History of Present Illness 57 year old male with history of intractable abdominal pain secondary to Crohn's disease, status post ileostomy, intrathecal pain pump in place presented to ED with several days of worsening abdominal pain, decreased oral intake x 2 days, as well as increased ostomy output. He has an extensive history of stricturing ileocolonic Crohn's Disease with 12 plus surgical interventions. Per records from his IBD and colorectal surgery teams at [facility], the patient was intially diagnosed in 1998 with Crohn's Disease after presenting with nausea, vomiting, weight loss, & SBO. He was initiated on steroids & 5ASAs at that time. Due to progression of symptoms, he was eventually started on Imuran and by 2000 was on Remicade. Despite these interventions, the stricturing disease of the ileum did not improve and symptoms persisted. He had a resection in 2002. He then developed worsening stricturing disease post operatively leading to an eventual ileocolonic resection in 2005 with diverting ileostomy after multiple surgeries including exploratory lap with extensive BEAU, ileostomy takedown with ileotransverse anastomosis in December 2007. He was switched from Remicade to Humira in 2008 but his symptoms persisted. He was started on an intrathecal Dilaudid pump at that time. He was off of his IBD therapy from [id number] due to financial concerns. In 2011 with intermittent fevers and was found to have rectosigmoid ulceration and IC anastomotic stricture at that time and had a subtotal proctocolectomy with closure of an anorectal stump, end ileostomy, and BEAU in 2011. Post surgical complications included a ag-rectal cuff abscess requiring operative drainage by colorectal surgery 3 times in 2011. In May of 2012, he finally underwent a completion proctectomy and debridement of stump associated abscess. At that time in 2011, he began seeing IBD specialist Dr. Fer Hurtado. In 2012, he had a restaging EGD and ileoscopy without evidence of active IBD. He was not placed on IBD therapy due to this. He continued to have numerous admissions for abdominal pain an partial small bowel obstructions felt to be due to extensive adhesions. From [id number] he had many SBFTs, CTEs, and CTs that did not show disease of the small bowel. Due to persistent symptoms, an exploratory laparoscopy was planned, however the patient admitted to smoking cigarettes at that time and it was deferred for this reason. In 2016, he underwent an EGD that was unremarkable. Ileoscopy was unremarkable as well. He did better for some time, but by 2018, he had begun to have obstructive symptoms often and began unintentionally losing weight (30+ lbs in 2 months). He did not seek medical attention at that time because his obstructive symptoms resolved when he backed off diet. In 2019, he presented to [facility] because he could not resolve the pain with conservative measures. At that time, he reportedly had a CT scan that was concerning for SMA syndrome with duodenal c loop dilatation by narrowing at the 3rd portion of the duodenum as a result of narrowing of the aortomesenteric distance at the SMA branch. He had no CT findings of active IBD and stool calpr otectin was negative at that time. Despite this, due to his persistent symptoms, he was tried on Budesonide and ultimately steroids again without improvement of his GI symptoms and ended up in tertiary care on Cyclosporine. He re-established care with the IBD office at [facility] in 2019 after this admission, but it is unclear of what further has been done since that time in 2019 as we do not have records of this. He has intermittently sought care at [facility] for several years, though he was non-compliant and not much was able to be offered at a local level. He is not currently on Crohn's therapy. Of note, he continues to smoke. He was seen as inpatient 06/22/[address] where he underwent a CT scan that questioned a partial small bowel obstruction. Clinically, he had 30+ lbs weight loss over the months preceding evaluation at [facility] and wasn't eating at home. He was having to empty his ostomy 20+ times daily. His H/H is 13.4/37.6. Stool studies were negative for enteric pathogens. K 3.7. BP 94/58. Mg 1.5 on admission. WBC 11.29 on admission. T Bili 1.7. CRP is normal and ESR is mildly elevated at 55. GI was consulted for consideration of feeding tube during his admission due to his inability to tolerate oral intake, unfortunately it was documented in historical records that a PEG was considered in 2019 due to the same issue, but it was determined that it could not be endoscopically placed due to extensive surgical scarring. The plan in 2019 was to consider IR or surgical placement, however he never got this. he believes he had NG at that time. Patient was to be transferred to [facility] during last admission but he improved on steroids and he wished to go home. He had been to see [facility] last month. There he follows with Dr. Carver. Per patient, "they did not feel it was a crohn's flare". He tells me that it was felt most of his issues stem from his abdominal surgeries that he has had over the years. Per patient, "they said out there they don't need to treat the crohn's at this time" and has only been taking prednisone taper. He tells me that on this current admission that he has not been able to tolerate PO intake in the 2 days prior to admission. He had nausea and some mild vomiting. Also having abdominal pain he describes as a spasm, rated 8/10. He felt he was getting dehydrated so he proceeded to the ED for evaluation. Since arrival, electrolytes are being repleted. He tells me he is feeling somewhat better since he has been at the ED and is getting hungry and wants to try to eat. so far has been tolerating crackers and liquid. no blood in ostomy. no black ostomy output. Allergies Allergy/AdvReac Type Severity Reaction Status Date / Time lara Allergy Intermediate RASH OR Verified 07/18/22 14:49 TONGUE SWELLS ketorolac Allergy Intermediate shakes, Verified 07/18/22 14:49 nervous latex Allergy Mild IRRITATED Verified 07/18/22 14:49 aspirin Allergy Unknown hx Crohns Verified 07/18/22 14:49 disease tromethamine Allergy Unknown unknown Verified 07/18/22 14:49 Home Medications Medication Instructions Recorded Confirmed Type Medical marijuana 1 dose inhalation UD PRN pain 04/12/21 07/18/22 History methocarbamol 500 mg tablet 500 mg PO TID PRN spasms #90 tabs 01/17/22 07/18/22 Rx naloxone 4 mg/actuation nasal 1 spray intranasal Q2M PRN opioid 01/17/22 07/18/22 Rx spray (Narcan) overdose #2 ea hydromorphone intrathecal 03/22/22 07/18/22 History lorazepam 1 mg tablet (Ativan) 1 mg PO HS 06/21/22 07/18/22 History omeprazole 20 mg capsule,delayed 20 mg PO HS 06/21/22 07/18/22 History release cholecalciferol (vitamin D3) 125 5,000 unit PO DAILY #30 tabs 06/25/22 07/18/22 Rx mcg (5,000 unit) tablet (Vitamin D3) cyanocobalamin (vitamin B-12) 1,000 mcg subcut DIRECTED #7 ea 06/25/22 07/18/22 Rx 1,000 mcg/mL injection kit nystatin 100,000 unit/mL oral 5 ml PO QID #250 mL 06/25/22 07/18/22 Rx suspension ondansetron 4 mg disintegrating 4 mg PO Q6H PRN nausea and 06/25/22 07/18/22 Rx tablet vomiting #10 tabs prednisone 10 mg tablet 10 mg PO .daily as directed #100 06/25/22 07/18/22 Rx tabs Patient History Medical History (Updated 07/26/22 @ 05:00 by Linda Canas DO) Atherosclerosis of abdominal aorta Noted incidentally on CT abdomen 04/2019 Candidiasis of mouth and esophagus Chronic abdominal pain 2/2 crohns COPD (chronic obstructive pulmonary disease) No inhaler use. Chest x-ray from 05/19/2019 notes stable hyperexpansion of the lungs consistent with emphysema. Crohn's disease of small and large intestines Crohns disease DVT (deep venous thrombosis) [place] [facility], was on Lovenox shots temporarily. 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 Renal cyst Noted on CT 04/2019 Severe protein-calorie malnutrition Severe protein-calorie malnutrition Smoker Superior mesenteric artery syndrome Vitamin B12 deficiency Vitamin D deficiency Weakness Surgical History H/O ileostomy History of colon resection SEVERAL due to crohns History of surgery INTRATHECAL PUMP REFILL Family History Other No pertinent family history Social History Smoking Status: Current every day smoker Tobacco Type: Cigarettes Cigarettes Per Day: 1 pack/day; Second Hand Exposure: No; Do You Dip or Chew Tobacco: No; Tobacco Cessation Education Requested by Patient: No Hx Alcohol Use: No Hx Substance Use: Yes Last Used Substance: Days (ago) Last Used Substance Other:: yesterday Substance Use Type Other:: medical marijuana Preferred Language: Wolof Communication Ability: Effective Visual Impairment: No Limitations Hearing Ability: Normal Service Representative Required: No Beliefs That Will Affect Care: None marital status: Single Current Living Situation: Family current occupational status: disabled Other Information That Helps Us Care for You: No Feels Safe at Home: Yes Safety Concerns: Feels Safe At This Time Assistive Devices: None Review of Systems Review of Systems: All systems reviewed & are unremarkable except as noted in HPI & below Constitutional: + fatigue, + weakness and + anorexia Physical Exam Constitutional: WD/WN, vitals as above Respiratory: normal respiratory effort, lungs clear to auscultation Cardiovascular: RRR, no murmur, no edema Gastrointestinal (Abdomen): ostomy in place in RLQ, pain pump noted, normal bowel sounds, mild diffuse tenderness, abdomen soft, no guarding. scars on abdomen. Psychiatric: Orientation: alert and oriented x 3 Results & Data ([facility]) Vital Signs (Past 12 Hours) Vital Signs Temp Pulse Resp BP Pulse Ox O2 Del Method 07/26/22 09:22 71 19 110/64 95 Room Air 07/26/22 07:04 36.9 C 69 20 101/63 93 Room Air 07/26/22 06:00 74 18 104/68 93 Room Air 07/26/22 03:31 80 16 123/73 95 Room Air 07/26/22 02:00 70 14 107/62 95 Room Air 07/26/22 00:00 70 19 123/70 96 Room Air 07/25/22 22:00 87 16 96/78 L 96 Room Air Diagnostic Findings KUB CLINICAL HISTORY: Generalized abdominal pain. FINDINGS: An AP supine abdominal radiograph is correlated with abdominal CT dated 06/21/2022. A pain pump device partially obscures the left mid abdomen. A catheter extends into the central spinal canal. There is no radiographic evidence of high-grade bowel obstruction. An ostomy is seen in the right mid abdomen. Suture material is present in the pelvis. No evidence of intraperitoneal free air is seen on this supine image. There are no abnormal abdominal calcifications. The skeletal structures are osteopenic and appear intact. The lung bases are clear as imaged. IMPRESSION: 1. No acute abnormality is identified. 2. An ostomy is noted in the right mid abdomen. Electronically signed by: Alexander Larkin M.D. 07/26/2022 9:59 AM PG Care Time/CCT Total # of Minutes Spent Total Time Spent with Patient: Total time spent is greater than 50% in coordination of care (as documented) at patient's floor/unit and/or counseling patient: Coding Level of Care Code 08009 Inpt Consult Level 4 Diagnoses Crohns disease K50.90
--- NOTE | 2022-07-26 10:01 | XRay Report ---
KUB CLINICAL HISTORY: Generalized abdominal pain. FINDINGS: An AP supine abdominal radiograph is correlated with abdominal CT dated 06/21/2022. A pain p ump device partially obscures the left mid abdomen. A catheter extends into the central spinal canal. There is no radiographic evidence of high-grade bowel obstruction. An ostomy is seen in the right mi d abdomen. Suture material is present in the pelvis. No evidence of intraperitoneal free air is seen on this supine image. There are no abnormal abdominal calcifications. The skeletal structures are ost eopenic and appear intact. The lung bases are clear as imaged. IMPRESSION: 1. No acute abnormality is identified. 2. An ostomy is noted in the right mid abdomen. Electronically signed by: Alexander Larkin M.D. 07/26/2022 9:59 AM
[2022-07-26 10:16] LABS: Albumin Globulin Ratio 1.9 (0.9-2); Albumin Level 3.7 gm/dl (3.4-5.0); BUN Creatinine Ratio 18.3 (10-20); Bilirubin,Total 2.2 mg/dl (0.2-1.0); Calcium 8.9 mg/dl (8.5-10.1); Creatinine Clr Calc Pharmacy 74.6 ml/min; Est GFR (African American) 114.6 ml/min; Est GFR (Non-African American) 98.9 ml/min; Potassium 3.3 mmol/L (3.5-5.1); Total Protein 5.7 gm/dl (6.0-8.3)
--- NOTE | 2022-07-26 13:28 | Communication Note ---
Date of Service: July 26, 2022 Patient was admitted earlier this AM. I saw the patient with the resident physician nasreen. He reports a 2-day history of diffuse abdominal pain with watery output. He is present on a steroid taper, currently on 20 mg of prednisone, scheduled to decrease to 50 mg in 6 days. At this time, the patient was reporting feeling better. He does have ongoing pain, but he reports that his pain is closer to his baseline pain that was when he initially came in. He reports that he is hungry. He is n.p.o. by orders without reports having some crackers a few hours ago, along with some water, without any difficulty. Exam 110/64, 71, 19, 36.9, 95% on room air He is pleasant alert. No distress appreciated. Heart is regular Lungs are clear with nonlabored respirations Abdomen is soft. No rebound or guarding. Bowel sounds are noted to be hyperactive. Data WBC 11.65, hemoglobin 15.4, platelet 244 Sodium 130, potassium 3.3, chloride 91, BUN 15, creatinine 0.82 ESR = 40 Initial lactate 2.4, repeat 1.6 Total bili 2.2, AST 127, ALT 75 Imaging KUB from 07/25/2022 shows no evidence of high-grade bowel obstruction. Impression and Plan Crohn's GI consult pending Continue IV fluids Consider advancing diet but will wait until seen by GI Hyponatremia Chronic but lower end of his baseline range Likely related to his increased ostomy output Monitor Severe protein calorie malnutrition There had been discussion as an outpatient with regards to surgical referral for PEG tube placement
[2022-07-26 15:12] LABS: Adenovirus F 40/41 PCR Not Detected (NotDetected); Astrovirus PCR Not Detected (NotDetected); Campylobacter PCR Not Detected (NotDetected); Clostridium diff Toxin A/B PCR Not Detected (NotDetected); Cryptosporidium PCR Not Detected (NotDetected); Cyclospora cayetanensis PCR Not Detected (NotDetected); Entamoeba histolytica PCR Not Detected (NotDetected); Enteroaggregative E.coli(EAEC) Not Detected (NotDetected); Enteropathogenic E.coli (EPEC) Not Detected (NotDetected); Enterotoxigenic E.coli (ETEC) Not Detected (NotDetected); Giardia lamblia PCR Not Detected (NotDetected); Norovirus GI/GII PCR Not Detected (NotDetected); Plesiomonas shigelloides PCR Not Detected (NotDetected); Rotavirus A PCR Not Detected (NotDetected); Salmonella PCR Not Detected (NotDetected); Sapovirus PCR Not Detected (NotDetected); Shiga-like Toxin E.coli (STEC) Not Detected (NotDetected); Shigella/Enteroinvasive E.coli Not Detected (NotDetected); Vibrio cholerae PCR Not Detected (NotDetected); Vibrio species PCR Not Detected (NotDetected); Yersinia enterocolitica PCR Not Detected (NotDetected)
[2022-07-26] MEDS ORDERED: PANTOprazole 40 MG TAB PO SCH (21:00)
[2022-07-26] MEDS ORDERED: LORazepam 1 MG TAB PO SCH (21:00)
[2022-07-27] MEDS: MoRPHine SULFATE 2 MG/ML CARP IV PRN ×2 (02:27→06:29)
[2022-07-27 06:35] LABS: Hematocrit (blood only) 38.6 % (40.1-51.0); Hemoglobin 13.7 g/dl (14.0-18.0); Mean Corpuscular Hemoglobin 32.9 pg (25.0-34.0); Mean Corpuscular Hgb Conc 35.5 g/dL (32.0-36.0); Mean Corpuscular Volume 92.8 fL (80.0-100.0); Mean Platelet Volume 9.1 fL (9.4-12.4); Platelet Count 229 K/uL (130-400); RDW Standard Deviation 47.9 fL (36.4-46.3); Red Blood Count 4.16 M/uL (4.63-6.08); White Blood Count 8.52 K/ul (4.8-10.8)
[2022-07-27 07:04] LABS: Albumin Level 3.2 gm/dl (3.4-5.0); Bilirubin Direct 0.2 mg/dl (0-0.2); Bilirubin,Total 1.4 mg/dl (0.2-1.0); Calcium 8.3 mg/dl (8.5-10.1); Creatinine Clr Calc Pharmacy 79.4 ml/min; Est GFR (African American) 117.6 ml/min; Est GFR (Non-African American) 101.4 ml/min; Potassium 2.9 mmol/L (3.5-5.1); Total Protein 4.9 gm/dl (6.0-8.3)
[2022-07-27] MEDS: predniSONE 10 MG TABLET PO SCH (07:47)
[2022-07-27] MEDS ORDERED: POTASSIUM CHLORIDE CRTAB 20 MEQ TABCR PO STA (09:16)
[2022-07-27] MEDS ORDERED: NICOTINE 7 MG/24 HR TDSY TD SCH (09:45)
--- NOTE | 2022-07-27 09:56 | Communication Note ---
Date of Service: July 27, 2022 Patient tells me that he is feeling much better. He tells me that he wants to be discharged to home. stool studies came back negative for infection. I discussed with him about starting something to help slow down his ostomy output but he does not want this. He tells me in the past that he has tried imodium, lomotil, and questran and they block him up even on low doses and he does not want to take this or anything to slow down ostomy output at this time. He tells me he does not want to discuss peg tube locally and would rather address with Dr. Carver at [facility]. Would recommend he follow up with Dr. Carver as an outpatient after discharge.
[2022-07-27 13:32] LABS: BUN Creatinine Ratio 17.7 (10-20); Calcium 8.8 mg/dl (8.5-10.1); Creatinine Clr Calc Pharmacy 77.4 ml/min; Est GFR (African American) 116.3 ml/min; Est GFR (Non-African American) 100.4 ml/min; Potassium 3.3 mmol/L (3.5-5.1)
--- NOTE | 2022-07-27 17:17 | Communication Note ---
Date of Service: July 27, 2022 I also saw the patient with the resident physician and confirmed obrien portions of the history and physical examination. Upon examination's morning, the patient notes that his abdominal pain is at his baseline. He reports back to baseline ostomy output. He is tolerated a full liquid diet without difficulty. He is looking forward to discharge today as he feels as if he is back to baseline. Exam 111/75, 78, 18, 37 C, 94% on room air He is pleasant alert. No distress appreciated. Heart is regular Lungs are clear with nonlabored respirations Abdomen is soft. No rebound or guarding. Bowel sounds are noted to be hyperactive. Data Hemoglobin 13.7, WBC 8.52 Initial serum potassium 2.9, post repletion 3.3 Impression and Plan Crohn's GI consultation appreciated Symptoms markedly improved and tolerating diet Follow up with specialist as outline in GI note Hyponatremia Chronic but lower end of his baseline range Improved today Hypokalemia Suspect this will improve with return to normal appetite/nutrition Supplement with potassium chloride 20 mg p.o. twice daily for the next 3 days Recommend repeat BMP in 4 to 5 days Severe protein calorie malnutrition There had been discussion as an outpatient with regards to surgical referral for PEG tube placement Additional per resident discharge note
--- NOTE | 2022-07-27 20:26 | Discharge Summary ---
Date of Service July 27, 2022 Admission HPI Per Admitting Provider Tigre Cline is a 57yo male with history of intractable abdominal pain secondary to Crohn's disease, Intrathecal pain pump in place, history of ileostomy, history of SMA syndrome, presenting with diffuse abdominal pain, nausea, decreased oral intake as well as worsening of watery diarrhea.Symptoms have been ongoing for several days. He denies melena, hematochezia, fever, bloating. Denies chest pain, cough, shortness of breath.Patient has longstanding history of Crohn's. He was recently admitted to [facility] in June 2022 and was treated with IV steroids. He follows locally with GI as well as with a provider in [place].He is presently on a slow steroid tapercurrent doses prednisone 20 mg p.o. daily to be continued for 6 more days then he decreases it to 15 mg daily. In the ER he is afebrile, he dynamically stable, no acute distress. He is in discomfort Admission Exam Per Admitting Provider General: patient resting comfortably, NAD, non-toxic in appearance, AA&O x 4 Skin: warm, dry, intact, no rashes or lesions HEENT: NC/AT, PERRL, EOMI, anicteric sclera, conjunctiva without injection, external ear normal to inspection and nontender, nares patent, moist mucus membranes, dentition intact, no oropharyngeal lesions, neck supple, trachea midline, no LAD, no thyromegaly, no JVD Heart: +S1/S2, regular, no m/r/g Lungs: equal air entry bilaterally, no rales/rhonchi/wheezes Abd: +BS, soft, ND, diffusely tender to palpation, ileostomy in place, pain pump in place Ext: warm, 2+ pulses in UE/LE bilaterally, no clubbing/cyanosis or edema Neuro: nonfocal, patient AA&O x 4, speech intact, no facial droop, moving all extremities on command with equal strength 5/5 Principal Diagnosis Crohn's flare Discharge Exam General: Well-appearing, alert, interactive, and in no acute distress. HEENT: Normocephalic, atraumatic. EOM intact. Good conjugate gaze. Nares patent. Moist mucosal membranes. Neck: Supple. No lymphadenopathy. Normal ROM. CV: Regular rate and rhythm. Normal S1 and S2. No murmurs gallops or rubs. Respiratory: Normal respiratory effort. Lungs clear to auscultation bilaterally. No crackles, rhonchi, or wheezes. Abdomen: Soft, nondistended abdomen. No bruits heard on auscultation. No tenderness to deep palpation. No guarding or rebound. Extremities: Capillary refill <2 sec. 2+ dp equal bilaterally. No pedal edema. Neuro: Alert and oriented x3. Skin: Clean, dry, and intact. No rashes, bruises, or erythema. Discharge Data Allergies Allergy/AdvReac Type Severity Reaction Status Date / Time lara Allergy Intermediate RASH OR Verified 07/18/22 14:49 TONGUE SWELLS ketorolac Allergy Intermediate shakes, Verified 07/18/22 14:49 nervous latex Allergy Mild IRRITATED Verified 07/18/22 14:49 aspirin Allergy Unknown hx Crohns Verified 07/18/22 14:49 disease tromethamine Allergy Unknown unknown Verified 07/18/22 14:49 Consultations 07/26/22 01:14 ED Decision to Admit Stat 07/26/22 03:31 Consult Gastroenterology Routine Hospital Course (1) Crohns disease: - IV fluids and electrolyte repletion. - continue Zofran as needed for nausea. - we discussed surgical consultation to discuss peg tube as this was not deemed able to be placed endoscopically in the past and he is awaiting, but he declines. He tells me he only wishes to have done in [place]. - Bio fire negative for infectious disease - Calprotectin ordered. - Gently advance diet after bowel rest, which patient tolerated well enough to be discharged Total Time Total Time Spent Total Time Spent (In Minutes): I spent 25 minutes seeing the patient, reviewing discharge materials, and completing documentation. Discharge Plan Discharge Items Patient Disposition: Home - Self-Care Reason For Visit: CROHNS FLARE Discharge Diagnosis: Crohn's flare Activity: Per Instructions section Non-emergency contact: Primary Care Provider Call non-emergency contact if: you have any medication questions, your pain is worsening, your pain is unusual for you and your temperature is above 101.5 Follow-up/Referrals: Vicente Valenzuela M.D. [Primary Care Provider] - Diet: Regular Ambulatory Orders: Basic Metabolic Panel (Routine) Timeframe: 1 Week Location: Determined by Patient Ordered By: Adedoyin Okulate Addtl Attending Provider Instructions: You were admitted to the hospital for severe abdominal pain, which we believe was caused by a bowel obstruction. You were treated with bowel rest, IV fluids, electrolyte repletion, and a gentle restarting of your diet. He tolerated all these treatments well, now we feel that you are ready to be safely discharged home. A discharge summary will be sent to your primary care physician to ensure continuity of care. Please bring this discharge summary with you to your next office appointment so that your provider can review it at that time. Follow-up appointments: * Make a follow-up appointment with your PCP within the next week. It is very important that you follow up with them shortly after discharge from the hosp ital. * Keep all your follow-up appointments as already scheduled. If you cannot make an appointment, notify your provider. Medications: Your medication list has been reviewed and reconciled upon discharge to ensure accuracy and continuity of care. An updated list of all your medications is included with your hospital discharge paperwork. Please review this list closely , and make note of any changes. * We sent a new medication called potassium chloride to your pharmacy. Take 20 mEq twice daily for 3 days. Take your medications as instructed; do not skip a dose of your medicines. Make sure all of your doctors know every medicine you are taking (including [id number] medicines, vitamins, and supplements). Call your primary care provider before taking any new medicines (including jzur-qvo-lmlwnty medicines, vitamins, and supplements), because some of these may interact with your current medications, or may make your symptoms worse. Tell your primary care provider if you cannot afford your medications. CONTACT YOUR PRIMARY CARE PROVIDER if you experience any of the following: * Sudden, severe abdominal pain * Decreased or irregular output into her ostomy bag * Difficulty following your treatment plan, or difficulty taking medications CALL 911 OR GO TO THE EMERGENCY DEPARTMENT if you experience any of the following: * Sudden, severe abdominal pain or nausea/vomiting * Severe chest pain, or chest pain that radiates (moves) to your jaw or arm * Sudden, severe shortness of breath or difficulty breathing Thank you for allowing us to participate in your care. Pending Studies at Discharge: Yes Studies:: Stool calprotectin Stand-Alone Forms: [facility], Smoking Cessation Medications and DC Order Prescriptions: New potassium chloride 20 mEq tablet extended release 20 meq PO BID 3 Days Qty: 6 0RF Continued Medical marijuana aerosol 1 dose inhalation UD PRN (Reason: pain) methocarbamol 500 mg tablet 500 mg PO TID PRN (Reason: spasms) Qty: 90 2RF Narcan 4 mg/actuation spray,non-aerosol 1 spray intranasal Q2M PRN (Reason: opioid overdose) Qty: 2 0RF Rx Instructions: administer 1 dose into ONE nostril; alternate nostrils w each dose until help arrives hydromorphone 15 mg/mL intrathecal omeprazole 20 mg capsule,delayed release(DR/EC) 20 mg PO HS lorazepam [Ativan] 1 mg Tablet 1 mg PO HS ondansetron 4 mg tablet,disintegrating 4 mg PO Q6H PRN (Reason: nausea and vomiting) Qty: 10 0RF nystatin 100,000 unit/mL suspension 5 ml PO QID Qty: 250 1RF Rx Instructions: swish and spit; take for 7 days. cholecalciferol (vitamin D3) [Vitamin D3] 125 mcg (5,000 unit) tablet 5,000 unit PO DAILY Qty: 30 1RF cyanocobalamin (vitamin B-12) 1,000 mcg/mL kit 1,000 mcg subcut DIRECTED Qty: 7 0RF Rx Instructions: Start 06/26/22. Take 1000mcg (1ml) SC qweekly x 4 weeks, then 1000mcg SC qmonthly thereafter. prednisone 10 mg tablet 10 mg PO .daily as directed Qty: 100 0RF Rx Instructions: Start 06/26/22. 4 tabs po daily x 7 days; then 3.5 tabs po daily x 7 days; then 3 tabs po daily x 7 days. Further instructions to follow from your GI provider. Discharge Orders: Discharge Order (Routine); Ordered 07/27/22 Ordered By: Magnus Carney Admission Data Admit Date/Time: 07/26/22 01:58 Attending Provider: Manuelito Camarena Admit Provider: Linda Canas Primary Care Provider: Vicente Valenzuela Other Providers: Linda Canas ; Joe Carrington. Other Interventions: Discharge Summary Assessment (RN) Last Done: 07/27/22 14:31 Supervising Physician Co-Signing Physician Notes I also saw the patient confirmed obrien portions of the history and physical examination. Please see my separate attestation in the communication note dated 07/27/2022. Resident Activity Tracking Resident Involvement: Resident Care Provided Care Provided: Adult Hospital Medicine
== END 2022-07-27 15:55 | disposition home or self-care (01) | DRG 385 ==
LOC: ED 17:13 → EDINP 07-26 01:58 → SUATTDRO 07-26 01:58 → 3E 07-26 03:30
DX: E43 Unspecified severe protein-calorie malnutrition; E86.0 Dehydration; F17.210 Nicotine dependence, cigarettes, uncomplicated; Z88.8 Allergy status to other drugs, medicaments and biological substances; E87.1 Hypo-osmolality and hyponatremia; Z91.040 Latex allergy status; E87.6 Hypokalemia; J44.9 Chronic obstructive pulmonary disease, unspecified; Z86.718 Personal history of other venous thrombosis and embolism; K50.90 Crohn's disease, unspecified, without complications; Z88.6 Allergy status to analgesic agent; Z93.2 Ileostomy status; Z79.899 Other long term (current) drug therapy; I25.10 Atherosclerotic heart disease of native coronary artery without angina pectoris

== ENCOUNTER 2022-12-27 05:53 | Observation (INO) ==
--- NOTE | 2022-12-08 11:48 | History & Physical Report ---
Date of Service December 08, 2022 Assessment & Plan (1) Status post insertion of intrathecal pump: (2) Abdominal pain: (3) Crohns disease: Plan Intrathecal catheter is thought to be fractured vs occluded. It is recommended that the patient receive a revision/replacement of the intrathecal catheter. Risks and benefits were reviewed with the patient. Surgical procedure has been described in detail and he is understanding and would like to proceed with the surgery. Surgery is scheduled for 12/13/22. History of Present Illness Chief Complaint: Chronic abdominal pain Primary Care Provider: Vicente Valenzuela Mr. Cline is a 57 year old white male that is well known to the [facility] with chronic intractable abdominal pain secondary to history of IBS/Crohn's disease and superior mesenteric artery syndrome. Patient has history of colostomy and complete colon resection as a result of his Crohn's disease. He did have an intrathecal pump and catheter delivery system implanted February 2013 and replaced in 2019. Over the past several months he has been reporting poor pain control so a catheter dye study was performed and there was found to be leaking of the contrast in the flank region. Catheter is suspected to be fractured vs occluded. His pain is ranging from 5-10/10. He is having difficulty keeping his weight due to abdominal pain after eating. Allergies Allergy/AdvReac Type Severity Reaction Status Date / Time lara Allergy Intermediate RASH OR Verified 12/08/22 10:43 TONGUE SWELLS ketorolac Allergy Intermediate shakes, Verified 12/08/22 10:43 nervous latex Allergy Mild IRRITATED Verified 12/08/22 10:43 aspirin Allergy Unknown hx Crohns Verified 12/08/22 10:43 disease tromethamine Allergy Unknown unknown Verified 12/08/22 10:43 Home Medications Medication Instructions Recorded Confirmed Type Medical marijuana 1 dose inhalation UD PRN pain 04/12/21 12/08/22 History methocarbamol 500 mg tablet 500 mg PO TID PRN spasms #90 tabs 01/17/22 12/08/22 Rx hydromorphone 1 dose intrathecal DIRECTED 03/22/22 12/08/22 History lorazepam 1 mg tablet (Ativan) 1 mg PO HS 06/21/22 12/08/22 History omeprazole 20 mg capsule,delayed 20 mg PO HS 06/21/22 12/08/22 History release cyanocobalamin (vitamin B-12) 1,000 mcg subcut DIRECTED #7 ea 06/25/22 12/08/22 Rx 1,000 mcg/mL injection kit nystatin 100,000 unit/mL oral 5 ml PO QID #250 mL 06/25/22 12/08/22 Rx suspension ondansetron 4 mg disintegrating 4 mg PO Q6H PRN nausea and 06/25/22 12/08/22 Rx tablet vomiting #10 tabs prednisone 10 mg tablet 10 mg PO .daily as directed #100 06/25/22 12/08/22 Rx tabs naloxone 4 mg/actuation nasal 1 spray intranasal Q2M PRN opioid 10/04/22 12/08/22 Rx spray (Narcan) overdose #2 ea cholecalciferol (vitamin D3) 125 5,000 unit PO HS 12/08/22 12/08/22 History mcg (5,000 unit) tablet (Vitamin D3) Past Med/Surg History Medical History Atherosclerosis of abdominal aorta Noted incidentally on CT abdomen 04/2019 Chronic abdominal pain 2/2 crohns Chronic cough from smoking per pt COPD (chronic obstructive pulmonary disease) No inhaler use. Chest x-ray from 05/19/2019 notes stable hyperexpansion of the lungs consistent with emphysema. Crohn's disease of small and large intestines DVT (deep venous thrombosis) Years ago in [facility] [place] due to PICC line occlusion, was on Lovenox shots temporarily. Hx SBO x several and adhesions Hypomagnesemia Hyponatremia Kidney stones passed on own 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 Renal cyst Noted on CT 04/2019 Severe protein-calorie malnutrition Smoker Superior mesenteric artery syndrome Vitamin B12 deficiency Vitamin D deficiency Weakness Surgical History H/O ileostomy present History of appendectomy History of bowel resection History of colon resection SEVERAL due to crohns History of colonoscopy History of esophagogastroduodenoscopy (EGD) History of surgery INTRATHECAL PUMP REFILL History of tooth extraction S/P proctocolectomy Family History Other No pertinent family history Social History Smoking Status: Current every day smoker Tobacco Type: Cigarettes Cigarettes Per Day: 1 ppd; Second Hand Exposure: No; Hx Alcohol Use: No Hx Substance Use: Yes Last Used Substance: Days (ago) Last Used Substance Other:: yesterday Substance Use Type Other:: medical card Preferred Language: Bhutanese Communication Ability: Effective Visual Impairment: No Limitations Hearing Ability: Normal Computer Consultant Required: No Beliefs That Will Affect Care: None marital status: Single Current Living Situation: Family current occupational status: disabled Feels Safe at Home: Yes Assistive Devices: Denture - Upper, Denture - Lower and Glasses Review of Systems Review of Systems: All systems reviewed & are unremarkable except as noted in HPI & below Physical Exam Physical Exam: GENERAL: Speech and cognition is intact. Mood and affect is appropriate. In no acute distress. HEAD: Normocephalic; atraumatic. EYES: No conjunctival injection. EOM intact. ENT: No external ear discharge or lesions. No rhinorrhea or epistaxis. Moist oral mucosa. NECK: Full ROM; trachea is midline; no TTP; no cervical lymphadenopathy. CARDIO: Regular rate and rhythm. No murmurs, rubs, or gallops. PULM: Clear to auscultation. No wheezes, rales, or rhonchi. CHEST: Regular chest respiration and excursion. ABDOMEN: Active bowel sounds throughout; Several well healed incisions of the abdomen. There is mild diffuse tenderness to palpation of the abdomen. No peritoneal signs. Pump is located in the RLQ abdomen without mobility or tenderness. EXTREMITIES: Using all extremities appropriately. NEURO: CN II-XII grossly intact with no focal deficits noted. Normal gait. SKIN: No lesions, erythema, or rashes noted.
--- NOTE | 2022-12-09 14:19 | Anesthesiology Consultation ---
Date of Service December 09, 2022 Assessment & Plan (1) Encounter for pre-operative examination: - COVID screening: Per family assessment worker on 12/08/2022: Travel screen negative, no known COVID-19 positive contacts or current COVID-19 related symptoms in past 2 weeks. To surgeon's discretion if preop COVID testing is needed. Chart Review Chart Review: Acceptable Risk for Surgery and Patient NOT seen in Pre Admission Testing History Surgery Operation Date: 12/13/22 07:30 Proposed Procedures p Revision of Intrathecal Catheter - Raj Duran MD, FIPP Height/Weight Height: 5 ft 8 in Weight: 54.431 kg Allergies Allergy/AdvReac Type Severity Reaction Status Date / Time lara Allergy Intermediate RASH OR Verified 12/08/22 10:43 TONGUE SWELLS ketorolac Allergy Intermediate shakes, Verified 12/08/22 10:43 nervous latex Allergy Mild IRRITATED Verified 12/08/22 10:43 aspirin Allergy Unknown hx Crohns Verified 12/08/22 10:43 disease tromethamine Allergy Unknown unknown Verified 12/08/22 10:43 Medications Home Medications Medication Instructions Recorded Confirmed Last Taken Medical marijuana 1 dose inhalation UD PRN pain 04/12/21 12/08/22 Unknown methocarbamol 500 mg tablet 500 mg PO TID PRN spasms #90 tabs 01/17/22 12/08/22 Unknown hydromorphone 1 dose intrathecal DIRECTED 03/22/22 12/08/22 Unknown lorazepam 1 mg tablet (Ativan) 1 mg PO HS 06/21/22 12/08/22 06/20/22 omeprazole 20 mg capsule,delayed 20 mg PO HS 06/21/22 12/08/22 06/20/22 release cyanocobalamin (vitamin B-12) 1,000 mcg subcut DIRECTED #7 ea 06/25/22 12/08/22 Unknown 1,000 mcg/mL injection kit nystatin 100,000 unit/mL oral 5 ml PO QID #250 mL 06/25/22 12/08/22 Unknown suspension ondansetron 4 mg disintegrating 4 mg PO Q6H PRN nausea and 06/25/22 12/08/22 Unknown tablet vomiting #10 tabs prednisone 10 mg tablet 10 mg PO .daily as directed #100 06/25/22 12/08/22 Unknown tabs naloxone 4 mg/actuation nasal 1 spray intranasal Q2M PRN opioid 10/04/22 12/08/22 Unknown spray (Narcan) overdose #2 ea cholecalciferol (vitamin D3) 125 5,000 unit PO HS 12/08/22 12/08/22 Unknown mcg (5,000 unit) tablet (Vitamin D3) Past Medical History Medical History (Updated 12/09/22 @ 14:15 by Brianna Fine PA-C) Atherosclerosis of abdominal aorta Noted incidentally on CT abdomen 04/2019 Chronic abdominal pain 2/2 crohns Chronic cough from smoking per pt COPD (chronic obstructive pulmonary disease) Crohn's disease of small and large intestines DVT (deep venous thrombosis) Years ago in E due to PICC line occlusion, was on Lovenox shots temporarily. Hx SBO x several and adhesions Hypomagnesemia Hyponatremia Kidney stones passed on own 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 Renal cyst Noted on CT 04/2019 Severe protein-calorie malnutrition Smoker Superior mesenteric artery syndrome Weakness Past Family History Family History Other No pertinent family history Past Surgical History Surgical History H/O ileostomy present History of appendectomy History of bowel resection History of colon resection SEVERAL due to crohns History of colonoscopy History of esophagogastroduodenoscopy (EGD) History of surgery INTRATHECAL PUMP REFILL History of tooth extraction S/P proctocolectomy Social History Smoking Status: Current every day smoker tobacco type: cigarettes Smoking cigarettes per day: 1 ppd Do You Dip or Chew Tobacco: No Hx Alcohol Use: No Hx Substance Use: Yes substance use type: marijuana Substance Use Type Other:: medical card Last Used Substance: Days (ago) Last Used Substance Other:: yesterday Testing Laboratory Results 12/06/2022 WBC: 7.1 H/H: PLATELETS: 249 SODIUM: 136 POTASSIUM: 3.1 CHLORIDE: 101 CO2: 27 BUN: 15 CREATININE: 1.1 GLUCOSE: 99 UA: yellow, urine specific gravity 1.026, small urine protein, trace ketones, negative bacteria Electrocardiogram Date: 12/06/22 NSR with sinus arrhythmia, rate 81 bpm Rightward axis Chest X-Ray Date: 12/06/22 No acute cardiopulmonary abnormality Other Testing Abdomen pelvis CT 06/21/22 Lung bases: The heart is normal in size and without pericardial effusion. Emphysematous changes noted at the lung bases. There is bibasilar scarring/atelectasis. No airspace consolidation or pleural effusion is identified.. Liver: The contrast-enhanced liver is normal in size, contour, and attenuation. There is no intrahepatic biliary ductal dilatation. The hepatic veins and portal veins are patent. Gallbladder: Surgically absent and clips in the gallbladder fossa. Kidneys: The contrast enhanced kidneys are normal in size and without hydronephrosis. The kidneys enhance symmetrically. A 2.2 cm cyst is noted in the right lower pole. Additional subcentimeter cortical hypodensities also likely represent cysts but are too small for definitive characterization Abdominal vasculature: The abdominal aorta is normal in course and caliber noting advanced atherosclerotic calcification. Bowel: There is postoperative change from proctocolectomy and right lower quadrant ileostomy. The proximal small bowel loops are distended and fluid- filled, measuring up to 3.3 cm in diameter. The distal small bowel loops are decompressed leading to the ostomy. The appearance favors a small bowel obstruction. Exact transition point is not delineated, but is likely located in the pelvis. No focally thick-walled bowel loops are identified. There is no pneumatosis intestinalis or portal venous gas. Pelvic viscera: The bladder is decompressed and appears circumferentially thick walled. The prostate gland is mildly enlarged and heterogeneous. The seminal vesicles are normal as imaged. Skeletal structures: The skeletal structures are osteopenic. No lytic or blastic lesions are seen. Soft tissues: The patient is cachectic. A pain pump device is present within the left lower quadrant abdominal wall. The catheter enters the central canal in the upper lumbar region. IMPRESSION: 1. There is postoperative change from proctocolectomy and right lower quadrant ileostomy. 2. The proximal small bowel loops are distended and fluid-filled, while the distal small bowel loops are decompressed. The appearance favors at least partial small bowel obstruction. A discrete transition point is not identified, but likely located in the pelvis. 3. No intraperitoneal free air is seen. No focally thick-walled bowel loops identified. 4. Emphysema. 5. The bladder is decompressed and appears circumferentially thick walled. Correlate with clinical findings and urinalysis. 6. Additional findings as above.
[~2022-12-27 05:53] MED LIST: LACTATED RINGER'S 1,000 ML IV SCH; LR 15ML/HR IV SCH; ceFAZolin 2000MG 2,000 MG/15 ML SYR IV SCH
[2022-12-27] MEDS ORDERED: ceFAZolin 2000MG 2,000 MG/15 ML SYR IV SCH (06:00)
[2022-12-27] MEDS ORDERED: LR 15ML/HR IV SCH ×2 (06:00)
[2022-12-27] MEDS ORDERED: HYDROmorphone PAIN PUMP IT SCH (06:00)
[2022-12-27] MEDS ORDERED: LACTATED RINGER'S 1,000 ML IV SCH (06:00)
[2022-12-27] MEDS ORDERED: PROPOFOL IV EMULSION 10 MG/ML 20 ML VIAL IV ONE (06:36)
[2022-12-27] MEDS ORDERED: LIDOCAINE 2% MPF LOCAL 5 ML VIAL INFIL ONE (06:36)
[2022-12-27] MEDS ORDERED: ROCURONIUM BROMIDE 10 MG/ML 5 ML VIAL IV ONE ×5 (06:37)
[2022-12-27] MEDS ORDERED: MIDAZOLAM HCL 1 MG/ML 2ML VIAL ONE (06:38)
[2022-12-27] MEDS ORDERED: fentaNYL citrate 100 MCG/2 ML VIAL ONE (06:38)
[2022-12-27] MEDS ORDERED: diphenhydrAMINE Capsule 25 MG CAP PO PRN (07:31)
[2022-12-27] MEDS ORDERED: NALOXONE HCL 0.4 MG/1 ML VIAL/CARP IV PRN ×2 (07:31→09:06)
[2022-12-27] MEDS ORDERED: ONDANSETRON INJ 2 MG/ML 2 ML VIAL IV PRN ×2 (07:31→09:06)
--- NOTE | 2022-12-27 07:39 | History & Physical Bridge Note ---
Date of Service December 27, 2022 History & Physical Bridge Note History & Physical Bridge Note Tigre Cline is a 57-year-old male with a history of chronic abdominal pain due to IBS/Crohn's disease and superior mesenteric artery syndrome. In the remote past, he underwent implantation of intrathecal medication delivery system. Would last several years, the efficacy of the therapy diminished and further evaluation including imaging and catheter dye study demonstrated fracture of the catheter in the left flank as well as migration of the intrathecal catheter into the sacrum. Patient is scheduled today for revision and replacement of the intrathecal catheter. Patient's past medical history, surgical history, medication and allergy list has been reviewed and no changes noted since his last history and physical examination performed. Review of systems is negative for any cardiac, pulmonary, GI, , endocrine or acute neurological complaints other than what is listed in the HPI section. Physical exam: GENERAL: Patient appears older than his stated age. Speech and cognition is intact. Mood and affect is appropriate. Sensorium is clear. He is in no acute distress. HEAD: Normocephalic; atraumatic. EYES: Pupils are round, equal, and reactive to light. EOM intact. Mucous membranes moist and pink. No oral lesions noted. ENT: No external ear discharge or lesions. No rhinorrhea or epistaxis. No mucosal lesions. NECK: Full ROM. Trachea is midline. No thyromegaly. No cervical lymp hadenopathy. Carotids without bruit. CARDIAC: Regular rate and rhythm. No murmur or gallops. CHEST: Regular chest respiration and excursion. Lungs are clear to auscultation. ABDOMEN: No organomegaly appreciated. Bowel sounds are normal. EXTREMITIES: Full ROM and +5 strength of bilateral lower extremities. Distal sensation and pulses intact bilaterally. BACK: Loss of lumbar lordosis. NEURO: Cranial nerves II-XII grossly intact with no focal deficits noted. Deep tendon reflexes in the upper and the lower extremities are symmetrical. Sensation and motor strength testing is unremarkable. SKIN: No lesions, erythema, or rashes noted. ASSESSMENT: Lack of efficacy of intrathecal catheter/delivery system due to fracture of the catheter and migration into the sacrum. Chronic abdominal pain secondary to IBS/Crohn's disease and superior mesenteric syndrome. RECOMMENDATIONS: Patient has been offered possible removal intrathecal catheter and reimplantation of a new catheter and pump revision.. History reviewed, examination performed, pertinent laboratory and imaging studies reviewed. No contraindications noted to proceeding with the proposed procedure. Potential risks including infection, bleeding, hematoma, nerve injury, persistent back pain, injury to the spinal cord, dural puncture with persistent cerebrospinal fluid leak, post dural puncture headache which may require additional interventional procedures to treat were discussed with the patient in detail. Alternative treatments were also discussed. Patient's questions were answered and gives informed consent to proceed with the proposed procedure.
[2022-12-27] MEDS ORDERED: NO NARCOTICS OR SEDATIVES SCH (07:45)
[2022-12-27] MEDS ORDERED: LIDOCAINE 2%/EPINEPHRINE 1:100,000 20ML INFIL ONE (07:47)
[2022-12-27] MEDS ORDERED: ONDANSETRON INJ 2 MG/ML 2 ML VIAL ONE ×2 (08:33→09:16)
[2022-12-27] MEDS ORDERED: DEXAMETHASONE SOD INJ 4 MG/ML VIAL ONE (08:33)
[2022-12-27] MEDS ORDERED: KETAMINE 50 MG/5 ML SYRINGE ONE (08:34)
[2022-12-27] MEDS ORDERED: PROMETHAZINE HCL 12.5 MG in SODIUM CHLORIDE 0.9% 50 ML IV PRN (09:06)
[2022-12-27] MEDS ORDERED: FLUMAZENIL 0.1 MG/1 ML 10 ML VIAL IV PRN (09:06)
[2022-12-27] MEDS ORDERED: ePHEDrine sulfate 50 MG/ML AMP IV PRN (09:06)
[2022-12-27] MEDS ORDERED: ATROPINE SULFATE 0.1 MG/ML 10ML SYR IV PRN (09:06)
[2022-12-27] MEDS ORDERED: GLYCOPYRROLATE 0.2 MG/ML VIAL ONE (09:15)
[2022-12-27] MEDS ORDERED: NEOSTIGMINE METHYLSULFATE 1 MG/ML 10ML VIAL ONE (09:15)
[2022-12-27] MEDS ORDERED: MAGNESIUM SULFATE / D5W 1 GM/100 ML BAG IV ONE (09:30)
--- NOTE | 2022-12-27 10:06 | Operative Report ---
Post Operative Report Pre & Post Diagnosis Operation Date: 12/27/22 07:30 Pre-Op Diagnosis: Malfunctioning Intrathecal Catheter Post-Op Diagnosis: Malfunctioning Intrathecal Catheter I identified the patient and participated in the time-out.: Yes Procedure Operation Date: 12/27/22 07:30 Actual Procedures 1. Revision of Intrathecal Catheter - Raj Duran MD, BRADY 2. Refill and re-program itntrathecal pump Surgeon Raj Duran MD, BRADY Video Game Developer Cirilo Price, PAC Estimated Blood Loss 15 Findings Consistent with Post-Op Diagnosis Existing intrathecal catheter was directed caudad Specimens None Drains None Anesthesia Type General Complications none Disposition Disposition: Recovery Room Description of Procedure INTRATHECAL CATHETER REVISION OPERATIVE REPORT PREOPERATIVE DIAGNOSIS: Nonfunctioning and migrated intrathecal catheter. POSTOPERATIVE DIAGNOSIS: Same. PROCEDURE: 1. Remove migrated catheter. 2. Insertion of new catheter. 3. Revision of pump pocket left lower quadrant of the abdomen 4. postoperative reprogramming of intrathecal drug delivery system pump. INDICATIONS: Lack of efficacy from intrathecal drug delivery system and migration of intrathecal catheter. COMPLICATIONS: None ANESTHESIA: General. DESCRIPTION OF PROCEDURE: The patient had an existing intrathecal pump with the catheter that had migrated in the epidural space. Patient was not achieving the efficacy from the intrathecal dose of the hydromorphone. Further evaluation and imaging demonstrated the catheter to be directed in the caudal direction in the intrathecal space and also catheter fracture causing contrast leak in the left flank. Prior to starting, the Patients diagnosis and the procedure were reviewed with the patient in detail. Possible risks and complications including infection, bleeding, damage to surrounding structures and increased pain were discussed. Alternative therapies were also reviewed. Patients questions were answered and they agreed to proceed. Informed consent was obtained. Allergies and medication list was reviewed. Biplanar fluoroscopy was used to assist in placement of the needle as well as to evaluate the final needle and catheter positions. The patient was brought to the operating room and general anesthesia was induced by members of the department. Patient was then placed in right lateral decubitus position. Immediately prior to starting the procedure, a ``time out was conducted with the staff where the patient was identified, proposed procedure was verified, consent was reviewed and the proper site for the planned procedure was identified. Preoperative antibiotics for prophylaxis were given through the IV. On examination, no signs of skin breakdown or infection were noted at the injection site. Entire abdomen and the entire thoracolumbar spine was cleansed with DuraPrep followed by Betadine. Sterile drapes were applied in the usual fashion. Pump pocket site in the left lower quadrant of the abdomen was opened and catheter was disconnected. No CSF flow was noted on aspiration. Pump anchoring sutures were cut and the pump was removed. Next, incision was made at the previous catheter insertion site in the lumbar spine. The existing catheter was located and anchor was disconnected and removed. Pursestring suture was taken at the site to stop any CSF leak. Next, using biplanar fluoroscopy an 16-gauge Touhy needle was used to gain access to the intrathecal sac at L3/L4 interspace. Free CSF flow was noted via the needle after running the stylet. Intrathecal catheter was then threaded through the needle under live fluoroscopy and the catheter tip was positioned at approximate T9 interspace. Clear free cerebral spinal fluid flow was noted without any blood. The intrathecal catheter was secured to the dorso-lumbar fascia with 2 purse string 0-0 silk ties. Then the spinal needle was removed and using the tunneling device, the catheter was brought to the pocket site in the left lower quadrant. Free CSF flow from the intrathecal catheter after anchoring of the catheter to the fascia. Back wound was then irrigated with Betadine containing saline solution. Pump was then connected using sutureless connector device to the catheter. Aspiration from the catheter access port revealed clear, free CSF flow. Pump was then anchored to the rectus fascia using 0 Prolene sutures in all 4 anchoring points. Pump was placed in the pocket and the deep layer was closed using 0 antibiotic-coated Stratfix suture and running 3-0 V lock suture for subcuticular layer. Prineo dressing was applied to the skin followed by Aquacel. Similarly, after irrigating the back wound it was closed with 0 antibiotic coated STRATAFIX suture followed by 3 0 antibiotic coated STRATAFIX suture for subcuticular layer. Pump was then reprogrammed to deliver 1 mg/24 hr dose. No complications were noted throughout the procedure. The patient tolerated the procedure and general anesthesia without obvious complications.. Patient was allowed to emerge from anesthesia at the end of the procedure and transferred back to the stretcher. Patient was transported to the recovery room in stable condition. The patient will follow up with our clinic within 7 days for a wound check and then plan to have the kary removed at day 14. Level of catheter: T9 Total implanted catheter length: 91.3 cm Medication placed in pump: Hydromorphone 2.5 mg/mL mg/ml to run at 1 mg/day [place] volume: 19 mL Preimplant prime bolus was conducted to clear old medication from the internal pump tubing by [employer] sales representative canvas products. I attest to the content of the Intraoperative Record and any orders documented therein. Any exceptions are noted below.
[2022-12-27] MEDS ORDERED: METHOCARBAMOL 500 MG TABLET PO PRN (10:59)
[2022-12-27] MEDS: fentaNYL citrate 100 MCG/2 ML VIAL IV PRN ×4 (11:17→11:35)
[2022-12-27] MEDS: HYDROmorphone INJ 1 MG/ML SYRINGE IV PRN ×5 (11:40→12:01)
--- NOTE | 2022-12-27 12:04 | Anesthesiology Progress Note ---
Date of Service December 27, 2022 Anesthesia Post Procedure Vital Signs Vital Signs: Temp Pulse Resp BP Pulse Ox O2 Del Method O2 Flow Rate 12/27/22 11:55 80 11 L 119/66 97 Nasal Cannula 2 12/27/22 11:25 71 16 124/80 97 Oxymask 3 12/27/22 11:15 64 9 L 115/79 99 Oxymask 3 12/27/22 11:45 72 16 107/76 97 Nasal Cannula 2 12/27/22 11:35 75 16 115/79 98 Oxymask 2 12/27/22 11:05 36.8 C 68 16 117/77 100 Oxymask 4 12/27/22 10:55 36.8 C 67 16 114/75 100 Oxymask 5 12/27/22 06:30 37.1 C 79 20 109/70 95 Room Air Pain Intensity Lower Abdomen: Pain Intensity: 8 Left Back: Pain Intensity: 7 Transfer of Care Handoff Completed per policy Notes Mental Status: alert / awake / arousable Patient Amnestic to Procedure: Yes Nausea / Vomiting: adequately controlled Pain: adequately controlled Airway Patency, RR, SpO2: stable & adequate BP & HR: stable & adequate Hydration State: stable & adequate Anesthetic Complications: no major complications apparent
[2022-12-27] MEDS: DOCUSATE SODIUM 100 MG CAP PO SCH ×2 (13:00→21:20)
[2022-12-27] MEDS ORDERED: FLUARIX QUADRIVALENT 0.5 ML SYR IM ONE (14:32)
[2022-12-27] MEDS: HYDROCODONE/ACETAMOPHEN 5/325MG TAB PO PRN ×2 (14:59→21:20)
--- NOTE | 2022-12-27 15:04 | XRay Report ---
XR thoracolumbar spine 2V HISTORY: 57 years-old Male s/p intrathecal pump/catheter revision COMPARISON: [facility] 10/04/2022 TECHNIQUE: 2 views of the thoracolumbar spine FINDINGS: Cholecystectomy. Atherosclerosis of the aorta. No acute fracture identified. Demineralized appearance the bones. Pain pump projects over the left anterior abdomen. The imaged catheter appears intact and appears to enter the central canal at the L2-L3 level projecting superiorly, the distal tip at the l evel of T9. IMPRESSION: Unremarkable appearance of the pain pump and visualized catheter. ACT 112: Negative or not required by law. The above report was generated using voice recognition software. It may contain grammatical, syntax o r spelling errors. Electronically signed by: Desean Mckeon M.D. 12/27/2022 3:02 PM
[2022-12-27] MEDS ORDERED: cefTRIAXone SODIUM 1,000 MG in DEXTROSE 5% 50 ML IV ONE (15:30)
[2022-12-27] MEDS: PANTOprazole 40 MG TAB PO SCH (21:20)
[2022-12-27] MEDS: LORazepam 1 MG TAB PO SCH (21:20)
[2022-12-27] MEDS: CHOLECALCIFEROL 5,000 UNITS 125 MCG TAB PO SCH (21:20)
[2022-12-28] MEDS: HYDROCODONE/ACETAMOPHEN 5/325MG TAB PO PRN (03:23)
[2022-12-28] MEDS ORDERED: HYDROCORTISONE SOD 100 MG in SYRINGE 0 ML IV ONE (08:30)
[2022-12-28] MEDS ORDERED: SODIUM CHLORIDE 0.9% 1000ML 1,000 ML IV SCH (08:30)
[2022-12-28] MEDS ORDERED: HYDROCODONE/ACETAMOPHEN 5/325MG TAB PO PRN ×2 (08:47→13:44)
--- NOTE | 2022-12-28 08:54 | Pain Management Progress Note ---
Date of Service December 28, 2022 Assessment & Plan (1) Abdominal pain: (2) Crohns disease: (3) Superior mesenteric artery syndrome: (4) Hypotension after procedure: Plan 1. Patient POD #1 status post intrathecal pump revision with catheter revision/replacement. Intrathecal pump was interrogated. His dose was increased by 10%. He will currently receive hydromorphone 1.0985 mg/day. Refer to pump print out in EMR. 2. Patient may continue with hydrocodone 5/325 mg 1 tablet p.o.-we will adjust to every 4 hours for breakthrough pain associate with incisional site pain 3. Will consult hospitalist service for assisting with management of poor dietary intake, weakness and mild hypotension in the postoperative period 4. Office visits will be arranged for postoperative wound check at 1 week in 2 weeks and will be communicated to patient. We will also arrange visit for intrathecal pump refill. 5. Will continue to follow during hospitalization Admission and Anticipated Discharge Date Admission Date: December 27, 2022 Subjective Mr. James is a 57-year-old white male who is well-known to the pain service who is postoperative day 1 status post intrathecal catheter revision/replacement. Patient was determined to have malfunction of his intra thecal catheter and underwent replacement of catheter yesterday. There was a significant reduction in his dose of intrathecal hydromorphone from 3.249 mg/day to 1 mg/day due to the malfunctioning catheter. Patient reports that he is experiencing incisional pain today in the midline of the thoracolumbar region and left lower quadrant abdomen as well as his chronic abdominal pain. He denies any significant change in his chronic abdominal pain complaints with regard to frequency and/or severity. He reports hydrocodone is effective at diminishing his incisional region pain for 3-4 hours. He denies any change in his stooling pattern through his colostomy over the past 24 hours. The patient reports some poor dietary intake for a few days prior to admission. He frequently experiences difficulty with dietary intake due to his current disease which leads to intermittent hospitalizations. Patient rates his incisional region pain at a 7-9/10. He reports his chronic abdominal pain at a 6-8/10. Denies change in location or characteristic of his chronic abdominal pain. Patient reports some mild nausea but denies vomiting. Patient is describing a mild global headache, which he denies change in headache pattern with positional change. Patient has no further constitutional complaints. Plan of care discussed with Dr. Duran. Pain Assessment Pain Assessment Full Body Front + Back: 1. Incisional pain over left lower quadrant at site of intrathecal pump revision 2. Incisional pain over placement of intrathecal catheter at thoracolumbar junction 3. Generalized abdominal pain-chronic complaint without change in location or characteristic Pain scale - at its best (0-10): 6 Pain scale - at its worst (0-10): 9 Physical Exam Physical Exam: General: Patient lying quietly upon in the room sleeping. He was awakened and arousable easily. Speech and thought process was appropriate. Cognition was intact. Abdomen: Abdominal binder was removed for visual inspection. Incisional site in the left lower quadrant with Aquacel dressing intact which was not removed for visual inspection. He is generally tender over the incisional site. Colostomy in place in the right lower quadrant. Patient has generalized abdominal tenderness without rebound or guarding. Back/spine: Midline incision was again visualized with Aquacel dressing intact. He is generalized tender to palpation over the midline incisional site as well as along the left flank where catheter was tunneled. No erythema or skin breakdown. Lower extremities: Strength testing 5/5 and equal. Sensation intact without deficit. No appreciable edema.
[2022-12-28 09:20] LABS: Hematocrit (blood only) 42.9 % (42.0-52.0); Hemoglobin 14.8 g/dl (14.0-18.0); Mean Corpuscular Hemoglobin 32.1 pg (25.0-34.0); Mean Corpuscular Hgb Conc 34.5 g/dL (32.0-36.0); Mean Corpuscular Volume 93.1 fL (80.0-100.0); Mean Platelet Volume 9.5 fL (9.4-12.4); Platelet Count 254 K/uL (130-400); RDW Coefficient of Variation 13.9 % (11.5-14.5); RDW Standard Deviation 47.8 fL (36.4-46.3); Red Blood Count 4.61 M/uL (4.70-6.10); White Blood Count 10.64 K/ul (4.8-10.8)
[2022-12-28] MEDS: DOCUSATE SODIUM 100 MG CAP PO SCH ×2 (09:21→20:50)
[2022-12-28 09:37] LABS: Albumin Globulin Ratio 1.6 (0.9-2); Albumin Level 3.9 gm/dl (3.4-5.0); BUN Creatinine Ratio 13.5 (10-20); Bilirubin,Total 2.4 mg/dl (0.2-1.0); Calcium 9.4 mg/dl (8.5-10.1); Creatinine Clr Calc Pharmacy 73.9 ml/min; Globulin 2.5 gm/dl (2.5-4.0); Potassium 3.4 mmol/L (3.5-5.1); Total Protein 6.4 gm/dl (6.0-8.3)
[2022-12-28] MEDS ORDERED: HYDROmorphone INJ 0.5 MG/0.5 ML SYR IV STA (11:13)
[2022-12-28] MEDS ORDERED: ACETAMINOPHEN 1,000 MG/100 ML VIAL IV STA (12:10)
--- NOTE | 2022-12-28 13:42 | Hospitalist Consultation ---
Date of Consultation December 28, 2022 Assessment & Plan (1) Hypotension after procedure: Patient is hypotensive after his recent procedure. This could be adrenal insufficiency due to his recent prednisone usage. He is given stress dose steroids. For possibility of hypovolemic hypotension he is given normal saline x1 L. Avoiding opiates postoperatively for pain control due to concern he could worsen hypotension. Hemoglobin is checked he is not anemic electrolytes are checked there is no renal failure or liver failure. Clinically there is no signs of ascites loss of volume or overt bleeding Likely most likely is adrenal insufficiency and hypovolemia after surgery. These are attempted to be repleted. After 24 hours he may return to his normal prednisone dosing as an outpatient History of Present Illness Attending Physician: Raj Duran MD, FIPP History of Present Illness was called for urgent consult due to hypotension, pt is one day post procedure from intrathecal catheter revision of pain pum. pain pump secondary to abdominal pain from Crohn's and SMA syndrome. previous colon resection. INtrathecal pump since 2012 with revision in 2019. with recent poor pain control dye study shows catheter leakage, prompting revision. pt has taken prednisone in the past, and is in pain this am with low blood pressure but able to keep po down and no obvious signs of blood loss. Reviewed CBC Reviewed complete metabolic panel Patient was administered hydrocortisone 100x1 IV fluids normal saline x1 L Allergies Allergy/AdvReac Type Severity Reaction Status Date / Time lara Allergy Intermediate RASH OR Verified 12/27/22 06:18 TONGUE SWELLS ketorolac Allergy Intermediate shakes, Verified 12/27/22 06:18 nervous latex Allergy Mild IRRITATED Verified 12/27/22 06:18 aspirin Allergy Unknown hx Crohns Verified 12/27/22 06:18 disease tromethamine Allergy Unknown unknown Verified 12/27/22 06:18 Home Medications Medication Instructions Recorded Confirmed Type Medical marijuana 1 dose inhalation UD PRN pain 04/12/21 12/27/22 History methocarbamol 500 mg tablet 500 mg PO TID PRN spasms #90 tabs 01/17/22 12/27/22 Rx hydromorphone 1 dose intrathecal DIRECTED 03/22/22 12/27/22 History lorazepam 1 mg tablet (Ativan) 1 mg PO HS 06/21/22 12/27/22 History omeprazole 20 mg capsule,delayed 20 mg PO HS 06/21/22 12/27/22 History release cyanocobalamin (vitamin B-12) 1,000 mcg subcut DIRECTED #7 ea 06/25/22 12/27/22 Rx 1,000 mcg/mL injection kit nystatin 100,000 unit/mL oral 5 ml PO QID #250 mL 06/25/22 12/27/22 Rx suspension ondansetron 4 mg disintegrating 4 mg PO Q6H PRN nausea and 06/25/22 12/27/22 Rx tablet vomiting #10 tabs prednisone 10 mg tablet 10 mg PO .daily as directed #100 06/25/22 12/27/22 Rx tabs naloxone 4 mg/actuation nasal 1 spray intranasal Q2M PRN opioid 10/04/22 12/27/22 Rx spray (Narcan) overdose #2 ea cholecalciferol (vitamin D3) 125 5,000 unit PO HS 12/08/22 12/27/22 History mcg (5,000 unit) tablet (Vitamin D3) Patient History Medical History (Updated 12/28/22 @ 08:57 by Jd Lamar PA-C) Atherosclerosis of abdominal aorta Noted incidentally on CT abdomen 04/2019 Chronic abdominal pain 2/2 crohns Chronic cough from smoking per pt COPD (chronic obstructive pulmonary disease) Crohn's disease of small and large intestines DVT (deep venous thrombosis) Years ago in [facility] [place] due to PICC line occlusion, was on Lovenox shots temporarily. 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 Renal cyst Noted on CT 04/2019 Severe protein-calorie malnutrition Smoker Superior mesenteric artery syndrome Weakness Surgical History H/O ileostomy present History of appendectomy History of bowel resection History of colon resection SEVERAL due to crohns History of colonoscopy History of esophagogastroduodenoscopy (EGD) History of surgery INTRATHECAL PUMP REFILL History of tooth extraction S/P proctocolectomy Family History Other No pertinent family history Social History Smoking Status: Heavy tobacco smoker Tobacco Type: Cigarettes Cigarettes Per Day: 1 ppd; Second Hand Exposure: No; Hx Alcohol Use: No Hx Substance Use: No Preferred Language: Vincentian Communication Ability: Effective Visual Impairment: No Limitations Hearing Ability: Normal 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 Beliefs That Will Affect Care: None marital status: Single Current Living Situation: Spouse and Family current occupational status: disabled Feels Safe at Home: Yes Assistive Devices: None Physical Exam Physical Exam: Awake alert appropriate patient is moderate distress with pain No focal neurological deficits Cardiac exam is regular, he is not tachycardic to suggest volume loss (is not on a beta-rebecca) Lung exam is clear limited excursion due to abdominal pain Abdomen is with bowel sounds present soft no focal guarding Pain pump site is in typical postoperative state Extremities are without edema Results & Data Results & Data ([facility]) Vital Signs (Past 12 Hours) Vital Signs Temp Pulse Pulse Resp BP BP Pulse Ox 12/28/22 13:30 61 18 98/61 L 96 12/28/22 12:00 60 18 89/52 L 97 12/28/22 11:47 97.3 F L 57 L 16 82/52 L 93 12/28/22 11:28 64 18 89/53 L 97 12/28/22 10:28 60 18 92/58 L 94 12/28/22 10:00 58 L 12/28/22 07:44 98.2 F 50 L 16 79/44 L 93 12/28/22 03:05 98.4 F 62 18 100/61 100 O2 Del Method O2 Flow Rate 12/28/22 13:30 Room Air 12/28/22 12:00 Room Air 12/28/22 11:47 Room Air 12/28/22 11:28 12/28/22 10:28 Room Air 12/28/22 10:00 12/28/22 07:44 Room Air 12/28/22 03:05 Nasal Cannula 2 PG Care Time/CCT Total # of Minutes Spent Total Time Spent with Patient: Total time spent is greater than 50% in coordination of care (as documented) at patient's floor/unit and/or counseling patient: Coding Level of Care Code 72733 IN/OBS CONSULT LVL 4,60M Diagnoses Hypotension after procedure I95.81
[2022-12-28] MEDS: HYDROCORTISONE SOD 50 MG in SYRINGE 0 ML IV SCH ×2 (14:56→22:32)
[2022-12-28] MEDS: LORazepam 1 MG TAB PO SCH (20:48)
[2022-12-28] MEDS: CHOLECALCIFEROL 5,000 UNITS 125 MCG TAB PO SCH (20:49)
[2022-12-28] MEDS: PANTOprazole 40 MG TAB PO SCH (20:50)
[2022-12-29] MEDS ORDERED: SODIUM CHLORIDE 0.9% 1000ML 1,000 ML IV ONE ×2 (03:40→05:01)
[2022-12-29] MEDS ORDERED: ACETAMINOPHEN 325 MG TAB PO PRN (05:19)
[2022-12-29] MEDS ORDERED: SODIUM CHLORIDE 0.9% 1000ML 1,000 ML IV SCH (06:00)
[2022-12-29] MEDS: DOCUSATE SODIUM 100 MG CAP PO SCH (07:44)
--- NOTE | 2022-12-29 08:25 | Pain Management Progress Note ---
Date of Service December 29, 2022 Assessment & Plan (1) Abdominal pain: (2) Crohns disease: (3) Superior mesenteric artery syndrome: (4) Hypotension after procedure: Plan 1. Continue to wear abdominal binder 24/7 x 4 weeks then activity only for an additional 4 weeks. 2. No dosage changes were made to the intrathecal pump today. Next pump refill is in 1 month and further dose adjustments will be made at that time. 3. Wound checks scheduled for 1 week and 2 week. 4. Plan to discharge on Hydrocodone 5/325 mg x 4 hours PRN pain. 5. Continue to push fluids. 6. Tylenol PRN headache. Admission and Anticipated Discharge Date Admission Date: December 27, 2022 Subjective Mr. James is a 57-year-old white male who is well-known to the pain service who is postoperative day 2 status post intrathecal catheter revision/replacement. Patient reports that he is experiencing incisional pain today in the midline of the thoracolumbar region and left lower quadrant abdomen as well as his chronic abdominal pain. A 10% dosage increase yesterday which was slightly helpful. He reports hydrocodone is effective at diminishing his incisional region pain for a few hours. He denies any change in his stooling pattern through his colostomy over the past 24 hours. He has been working on his liquid intake since yesterday. He frequently experiences difficulty with dietary intake due to his current disease which leads to intermittent hospitalizations. Pain is ranging from 5-8/10. Denies change in location or characteristic of his chronic abdominal pain. No nausea or vomiting. There is a mild waxing and waning headache over the past 4 days which is not alleviated with Tylenol. Headache is nonpositional. Patient has no further constitutional complaints. Plan of care discussed with Dr. Duran. Physical Exam Physical Exam: GENERAL: Speech and cognition is intact. Mood and affect is appropriate. In no acute distress. Thin and frail in appearance. HEAD: Normocephalic; atraumatic. EYES: No conjunctival injection. EOM intact. ENT: No external ear discharge or lesions. No rhinorrhea or epistaxis. Moist oral mucosa. NECK: Full ROM; trachea is midline; no TTP; no cervical lymphadenopathy. CHEST: Regular chest respiration and excursion. ABDOMEN: Active bowel sounds throughout; Several well healed incisions of the abdomen. There is mild diffuse tenderness to palpation of the abdomen. No peritoneal signs. Colostomy bag on the RLQ. Pump is located in the LLQ abdomen without mobility or tenderness. EXTREMITIES: Using all extremities appropriately. NEURO: CN II-XII grossly intact with no focal deficits noted. SKIN: No lesions, erythema, or rashes noted.
--- NOTE | 2022-12-29 08:35 | Discharge Summary ---
Date of Service December 29, 2022 Admission HPI Per Admitting Provider Mr. Cline is a 57 year old white male that is well known to the [facility] Service with chronic intractable abdominal pain secondary to history of IBS/Crohn's disease and superior mesenteric artery syndrome. Patient has history of colostomy and complete colon resection as a result of his Crohn's disease. He did have an intrathecal pump and catheter delivery system implanted February 2013 and replaced in 2019. Over the past several months he has been reporting poor pain control so a catheter dye study was performed and there was found to be leaking of the contrast in the flank region. Catheter is suspected to be fractured vs occluded. His pain is ranging from 5-10/10. He is having difficulty keeping his weight due to abdominal pain after eating. Admission Exam (Per Admitting) Constitutional GENERAL: Speech and cognition is intact. Mood and affect is appropriate. In no acute distress. HEAD: Normocephalic; atraumatic. EYES: No conjunctival injection. EOM intact. ENT: No external ear discharge or lesions. No rhinorrhea or epistaxis. Moist oral mucosa. NECK: Full ROM; trachea is midline; no TTP; no cervical lymphadenopathy. CARDIO: Regular rate and rhythm. No murmurs, rubs, or gallops. PULM: Clear to auscultation. No wheezes, rales, or rhonchi. CHEST: Regular chest respiration and excursion. ABDOMEN: Active bowel sounds throughout; Several well healed incisions of the abdomen. There is mild diffuse tenderness to palpation of the abdomen. No peritoneal signs. Pump is located in the RLQ abdomen without mobility or tenderness. EXTREMITIES: Using all extremities appropriately. NEURO: CN II-XII grossly intact with no focal deficits noted. Normal gait. SKIN: No lesions, erythema, or rashes noted. Discharge Data Consultations 12/28/22 08:09 Consult Hospitalist Routine Procedures Performed Operation Date: 12/27/22 07:30 Actual Procedures p Revision of Intrathecal Catheter(Left) - Raj Duran MD, [facility] Hospital Course (1) Abdominal pain: (2) Crohns disease: (3) Superior mesenteric artery syndrome: (4) Hypotension after procedure: Plan 1. Continue to wear abdominal binder 24/7 x 4 weeks then activity only for an additional 4 weeks. 2. No dosage changes were made to the intrathecal pump today. Next pump refill is in 1 month and further dose adjustments will be made at that time. 3. Wound checks scheduled for 1 week and 2 week. 4. Plan to discharge on Hydrocodone 5/325 mg x 4 hours PRN pain. 5. Continue to push fluids. 6. Tylenol PRN headache. Discharge to home Discharge Instructions Continue to wear abdominal binder 15/05 x 4 weeks then during activity only x 4 weeks. Wound check appointments scheduled on 01/03/23 at 11:15AM and on 01/10/23 at 2:45PM Small prescription for Hydrocodone 5/325mg x 4 hours sent to your pharmacy to take for post operative pain. No dressing changes necessary. Leave the Aquacel dressing on. This will be taken off at wound check appointment.
[2022-12-29] MEDS ORDERED: predniSONE 20 MG TAB PO SCH (09:00)
[2022-12-29] MEDS ORDERED: HYDROCODONE/ACETAMOPHEN 5/325MG TAB PO PRN (11:25)
== END 2022-12-29 14:34 | disposition home or self-care (01) ==
LOC: 2W 05:53 → ASU 05:53